=== PATIENT | female | born 1950 | race Caucasian/White ===

== ENCOUNTER → 2017-09-21 07:13 | Outpatient (CLI) | payer MEDICARE, BC, SELFPAY ==
[2017-09-21 10:26] LABS: Add Manual Diff / Slide Review NO; Basophils Percent Auto 0.8 % (0-2); Eosinophils Percent Auto 2.4 % (2-4); Hematocrit 42.7 % (36-46); Hemoglobin 14.6 g/dL (12.0-16.0); Lymphocytes Percent Auto 29.1 % (25-40); Mean Corpuscular HGB Conc 34.1 % (30-36); Mean Corpuscular Hemoglobin 30.1 PG (26-34); Mean Corpuscular Volume 88.1 fL (80-100); Monocytes Percent Auto 6.7 % (3-14); Neutrophils Absolute Auto 3300 /uL (3000-5900); Platelet Count 183 X10^3/uL (150-400); Red Blood Cell Count 4.85 X10^6/uL (4.0-5.2); Red Cell Distribution Width 13.9 % (11.6-14.8); White Blood Cell Count 5.4 X10^3/uL (4.5-11.0)
[2017-09-21 10:35] LABS: Alanine Aminotransferase 28 IU/L (9-52); Albumin 4.4 g/dL (3.5-5.0); Albumin Globulin Ratio 1.6 (1.0-2.8); Alkaline Phosphatase 59 U/L (38-126); Aspartate Aminotransferase 29 IU/L (14-36); BUN Creatinine Ratio 38.3 (6-22); Bilirubin Total 0.8 mg/dL (0.2-1.3); Blood Urea Nitrogen 23 mg/dL (7-17); Calcium 9.4 mg/dL (8.4-10.2); Carbon Dioxide 25 mmol/L (22-32); Chloride 104 mmol/L (98-107); Cholesterol 192 mg/dL (140-199); Estimated Glomerular Filt Rate > 60.0 mL/min (>60); Globulin 2.8 g/dL (1.7-4.1); Glucose 81 mg/dL (80-110); HDL Cholesterol 54 mg/dL (40-60); HEMOLYSIS < 15 (0-50); LDL Cholesterol Calculated 124 mg/dL (<100); Potassium 4.7 mmol/L (3.4-5.1); Sodium 141 mmol/L (137-145); Total Protein 7.2 g/dL (6.3-8.2); Triglycerides 70 mg/dL (35-150)
[2017-09-21 11:04] LABS: Thyroid Stimulating Hormone 2.86 uIU/mL (0.47-4.68)
== END ==
PROVIDERS: PCP Physician Assistant; Visit Provider Physician Assistant
DX: E03.9 Hypothyroidism, unspecified (principal); E78.5 Hyperlipidemia, unspecified; R00.2 Palpitations; I49.9 Cardiac arrhythmia, unspecified; E83.42 Hypomagnesemia
CPT/HCPCS: 36415; 80053; 80061; 83735; 84443; 85025

== ENCOUNTER → 2018-04-03 08:42 | Outpatient (CLI) | payer MEDICARE, BC, SELFPAY ==
--- NOTE | 2018-04-03 | DI.MG.S_ITS ---
BILATERAL DIGITAL SCREENING MAMMOGRAM 3D/2D WITH CAD: 04/03/2018 CLINICAL: Routine screening. Family history of breast cancer. Comparison is made to exams dated: 03/26/2017 mammogram, 09/27/2015 mammogram, and 09/25/2014 mammogram - [facility]. There are scattered fibroglandular elements in both breasts. Current study was also evaluated with a Computer Aided Detection (CAD) system. There is a mole marker on the left breast. No significant masses, calcifications, or other findings are seen in either breast. There has been no significant interval change. IMPRESSION: NEGATIVE There is no mammographic evidence of malignancy. A 1 year screening mammogram is recommended. This exam was interpreted at Station ID: [id number]. NOTE: For mammograms, a report in lay terms will be sent to the patient. Approximately 15% of breast malignancies will not be visualized mammographically. In the management of a palpable breast mass, a negative mammogram must not discourage biopsy of a clinically suspicious lesion. Electronically Signed By: Parmjit marroquin/chicho:04/03/2018 11:30:44 letter sent: Normal Exam ACR BI-RADS Category 1: Negative [id number]
== END ==
PROVIDERS: PCP Physician Assistant; Visit Provider Physician Assistant
DX: Z12.31 Encounter for screening mammogram for malignant neoplasm of breast (principal); Z80.3 Family history of malignant neoplasm of breast
CPT/HCPCS: 77063; 77067

== ENCOUNTER → 2018-12-25 06:51 | Outpatient (CLI) | payer MEDICARE, BC, SELFPAY ==
[2018-12-25 09:15] LABS: Alanine Aminotransferase 30 IU/L (9-52); Albumin 4.2 g/dL (3.5-5.0); Albumin Globulin Ratio 1.5 (1.0-2.8); Alkaline Phosphatase 59 U/L (38-126); Aspartate Aminotransferase 29 IU/L (14-36); Bilirubin Total 0.7 mg/dL (0.2-1.3); Blood Urea Nitrogen 21 mg/dL (7-17); Calcium 9.3 mg/dL (8.4-10.2); Carbon Dioxide 29 mmol/L (22-32); Chloride 105 mmol/L (98-107); Cholesterol 203 mg/dL (140-199); Estimated Glomerular Filt Rate > 60.0 mL/min (>60); Globulin 2.8 g/dL (1.7-4.1); Glucose 96 mg/dL (80-110); HDL Cholesterol 47 mg/dL (40-60); HEMOLYSIS < 15 (0-50); LDL Cholesterol Calculated 141 mg/dL (<100); Potassium 4.8 mmol/L (3.4-5.1); Sodium 141 mmol/L (137-145); Triglycerides 74 mg/dL (35-150)
[2018-12-25 09:43] LABS: Thyroid Stimulating Hormone 0.28 uIU/mL (0.47-4.68)
== END ==
PROVIDERS: PCP Physician Assistant; Visit Provider Physician Assistant
DX: E03.9 Hypothyroidism, unspecified (principal); E78.5 Hyperlipidemia, unspecified
CPT/HCPCS: 36415; 80053; 80061; 84443

== ENCOUNTER → 2019-02-28 08:16 | Outpatient (CLI) | payer MEDICARE, BC, SELFPAY ==
[2019-02-28 09:56] LABS: TSH w/ Reflex to FT4 0.26 uIU/mL (0.47-4.68)
== END ==
PROVIDERS: PCP Physician Assistant; Visit Provider Physician Assistant
DX: E03.9 Hypothyroidism, unspecified (principal)
CPT/HCPCS: 36415; 84439; 84443

== ENCOUNTER → 2019-03-28 12:15 | Outpatient (CLI) | payer MEDICARE, BC, SELFPAY ==
--- NOTE | 2019-03-28 | DI.RAD.S_ITS ---
PROCEDURE: XR HIP W PEL IF DONE LT 2V INDICATIONS: hip pain TECHNIQUE: 2 views of the hip were acquired. COMPARISON: None. FINDINGS: Bones: No fractures or dislocations. No suspicious bony lesions. The visualized pelvic ring appears intact. Soft tissues: No suspicious soft tissue calcifications or masses. IMPRESSION: Unremarkable examination as above If the patient's pain or other symptoms persist, consider further evaluation with MRI Dictated by: Lit Rodriguez M.D. on 03/28/2019 at 13:46 Approved by: Lit Rodriguez M.D. on 03/28/2019 at 13:48
--- NOTE | 2019-03-28 | DI.RAD.S_ITS ---
PROCEDURE: XR LUMBAR SPINE 2-3V INDICATIONS: pain in hip joint TECHNIQUE: 3 views of the lumbar spine were acquired. COMPARISON: [facility], , L-SPINE 2-3 VIEWS, 02/17/2013, 16:22. FINDINGS: Bones: No fracture or focal osseous destruction. Grade 1 anterolisthesis of L4 on L5. Multilevel degenerative endplate sclerosis and spurring. Diffuse facet arthropathy. Moderate narrowing of the L4-L5 disc space. Mild narrowing of the L2-L3 and L1-L2 disc spaces. Mild levocurvature. Bilateral sacroiliac degenerative sclerosis. Soft tissues: Overlying bowel gas pattern is normal. No suspicious soft tissue calcifications. IMPRESSION: Multilevel lumbar spondylosis and grade 1 anterolisthesis of L4 on L5. This is grossly unchanged, possibly minimal progression at L4-L5 since 02/17/13 Mild levocurvature Dictated by: Lit Rodriguez M.D. on 03/28/2019 at 13:42 Approved by: Lit Rodriguez M.D. on 03/28/2019 at 13:45
== END ==
PROVIDERS: PCP Physician Assistant; Visit Provider Physician Assistant
DX: M25.552 Pain in left hip (principal); M79.605 Pain in left leg; M47.816 Spondylosis without myelopathy or radiculopathy, lumbar region; M43.16 Spondylolisthesis, lumbar region
CPT/HCPCS: 72100; 73502

== ENCOUNTER → 2019-04-11 07:15 | Outpatient (CLI) | payer MEDICARE, BC, SELFPAY ==
--- NOTE | 2019-04-11 | DI.MG.S_ITS ---
BILATERAL DIGITAL SCREENING MAMMOGRAM 3D/2D WITH CAD: 04/11/2019 CLINICAL: Routine screening. Family history of breast cancer. Comparison is made to exams dated: 04/03/2018 mammogram, 03/26/2017 mammogram, and 09/27/2015 mammogram - [facility]. There are scattered fibroglandular elements in both breasts. Current study was also evaluated with a Computer Aided Detection (CAD) system. There is a mole marker on the left breast. No significant masses, calcifications, or other findings are seen in either breast. There has been no significant interval change. IMPRESSION: NEGATIVE There is no mammographic evidence of malignancy. A 1 year screening mammogram is recommended. This exam was interpreted at Station ID: [id number]. NOTE: For mammograms, a report in lay terms will be sent to the patient. Approximately 15% of breast malignancies will not be visualized mammographically. In the management of a palpable breast mass, a negative mammogram must not discourage biopsy of a clinically suspicious lesion. Electronically Signed By: Esthela beaver/chicho:04/11/2019 12:18:47 letter sent: Normal Exam ACR BI-RADS Category 1: Negative [id number]
== END ==
PROVIDERS: PCP Physician Assistant; Visit Provider Physician Assistant
DX: Z12.31 Encounter for screening mammogram for malignant neoplasm of breast (principal); Z80.3 Family history of malignant neoplasm of breast
CPT/HCPCS: 77063; 77067

== ENCOUNTER → 2019-04-15 15:15 | Outpatient (CLI) | payer MEDICARE, BC, SELFPAY ==
[2019-04-15 17:01] LABS: TSH w/ Reflex to FT4 0.26 uIU/mL (0.47-4.68)
[2019-04-15 17:35] LABS: Free T4, Direct Thyroxine 1.66 ng/dL (0.78-2.19)
== END ==
PROVIDERS: PCP Physician Assistant; Visit Provider Physician Assistant
DX: E03.9 Hypothyroidism, unspecified (principal)
CPT/HCPCS: 36415; 84439; 84443

== ENCOUNTER 2019-04-17 08:15 | Outpatient (RCR) | payer MEDICARE, BC, SELFPAY ==
--- NOTE | 2019-03-31 16:55 | PT.OIE ---
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 Primary Care Provider Specialty: Internal Medicine Address: [address] [place] [address], [facility] Email: [email or web address] Physical Therapy Initial Evaluation PT-OP-A Visit Information Start: 03/31/19 12:37 Freq: Status: Active Protocol: Document 03/31/19 13:34 LRN (Rec: 03/31/19 15:50 LRN [id number]) Out-Patient Physical Therapy Visit Information Visit Information Visit Type Initial Evaluation Visit Start Time 13:34 Visit Stop Time 14:29 Total Visit Minutes 55 Visit Number 1 Number of NARROW FABRICS WEAVER Visits 0 Evaluation Information Evaluation Date 03/31/19 Precautions Precautions Arthritis Claire's Disease Hx of Fracture of L Big Toe. PT-OP-B Current Condition Start: 03/31/19 12:37 Freq: Status: Active Protocol: Document 03/31/19 13:34 LRN (Rec: 03/31/19 15:50 LRN [id number]) Current Condition History of Current Condition Onset Date Problematic 1 month, aching for 2 months Current Complaints L hip pain radiating into the lateral leg. 2 yrs ago started in the R hip History of Current Condition Sudden onset of pain with hiking causing change in gait. L hip pain is problematic because it hurts after she gets up, on the inital step, while in bed at night, and in the middle of a walk. Has numbness in the R leg due to an old back thing (4-5 yrs ago couldn't get up because L5 -S1 slip). Trying to keep the pain at a level of 5/10 with medications. Has had gastritis from taking too much Advil. Prior Treatments and Tests X-rays 3 days ago, found unremarkable. Future Testing and Treatments Planned None Treatment Goals Patient/Caregiver Goals Pt goal is to be stronger, gain flexibility, learn how to make hips stronger. Maximize pain relief. Prior Functional Status Baseline Function- ADL's Independent Baseline Function- Mobility Independent Baseline Function- Gait Walk up to 12 miles, once a week with achy lower back after walks Current Functional Impairments (Reported) Functional Limitations- ADL's Currently limited in how far she can walk and what she can do. Walking limited maximally to 2.5-3 miles around [facility] , requiring her to slow down 3 -4 times and to work through some of the discomfort. Functional Limitations- Recreation/ No pain with water aerobics or Hobbies afterwards excessively, pain 4-10/16. Personal Factors Other Personal Factors That May Effect Leaving 04/18-mid 06/26 (going Therapy/Recovery to [facility] and [facility]). PT-OP-C Subjective Start: 03/31/19 12:37 Freq: Status: Active Protocol: Document 03/31/19 13:34 LRN (Rec: 03/31/19 15:50 LRN [id number]) OP-PT Pain Assessment Pain Assessment Grid Paper Pain Assessment Grid Completed Yes Location Low back Pain Location Details Low back at sacral level all the time and after sharp pain onset. Intensity 7 Description Aching Description- Other Ache is constant. Pain descending stairs Frequency Constant Pain Aggravating Factors Changing Position,Walking, Stair Climbing,Prolonged Bedrest Patient Stated Pain Goal Meds as needed. Wants to take Meloxicam for 2 weeks+ maintenance small dose Hip Pain Location Details Occasional sharp L lateral hip pain, pain R with palpation Intensity 7 Scale Used Numeric (1 - 10) Description Aching Description- Other Pain descending stairs. Frequency Occasional Pain Aggravating Factors Position,Changing Position, Standing,Stair Climbing, Prolonged Bedrest Pain Alleviating Factors Medication Patient Stated Pain Goal Meds as needed. Wants to take Meloxicam for 2 weeks+ maintenance small dose PT-OP-G Mobility & Gait Start: 03/31/19 12:37 Freq: Status: Active Protocol: Document 03/31/19 13:34 LRN (Rec: 03/31/19 15:50 LRN [id number]) OP Gait Assessment Gait Gait Assistance Required: Independent Able to Maintain Weight Bearing Status Yes During Gait Assistive Devices Assistive Device None PT-OP-H Neuro Start: 03/31/19 12:37 Freq: Status: Active Protocol: Document 03/31/19 13:34 LRN (Rec: 03/31/19 15:50 LRN [id number]) Sensation Evaluation Comments Summary Comments Pt starts with normal sensation, but after DTR testing pt complained of numbness tingling in the lateral R LE. Deep Tendon Reflex & Clonus Assessment Deep Tendon Reflex Bilateral Achilles Deep Tendon Reflex 1+ Diminished Bilateral Patellar Deep Tendon Reflex 3+ Normal But Brisk PT-OP-J Posture/Palpation/Skin Start: 03/31/19 12:37 Freq: Status: Active Protocol: Document 03/31/19 13:34 LRN (Rec: 03/31/19 15:50 LRN [id number]) Posture Evaluation Position Standing Evaluation View All positions Comments Posture Comments Pt demonstrates a visible Dowagers Hump and increased Kyphosis and Lordosis. Standing: Deep L PSIS. Prone: ALA is posterior on R, normalizes with MICHELL. RUSSEL is posterior on L, normalizes with MICHELL. Palpation Assessment Location Hip Palpation Location Lateral hip at Grtr trochanter , TFL, IT-Band, Piriformis, Sacrum Palpation Findings Tenderness Palpation Details L lateral hip tendereness at Grtr Trochanter, TFL, IT-Band, Piriformis, Sacral border. R lateral hip tenderness at Grtr Trochanter, TFL, IT-Band, Inferior Sacral Border, Upper Gluteal Muscle. Lumbar TrP & facets: L1, L2, L3 is tender. Lumbar Spinous Process: L4-S1 is tender. PT-OP-K Range of Motion Start: 03/31/19 12:37 Freq: Status: Active Protocol: Document 03/31/19 13:34 LRN (Rec: 03/31/19 15:50 LRN [id number]) Lumbar Spine Range of Motion Lumbar Spine Active Degrees Testing Position Standing Flexion 115 Extension 20 Rotation Left 45 Rotation Right 45 Lateral Flexion Left 18 Lateral Flexion Right 15 Hip Goniometric Range of Motion Hip Right Passive Testing Position Supine Straight Leg Raise 95 Extension 5 Abduction 30 Internal Rotation 25 External Rotation 50 Left Passive Testing Position Supine, Prone for Ext Straight Leg Raise 90 Extension 0 Abduction 50 Internal Rotation 30 External Rotation 40 PT-OP-L Special Tests Start: 03/31/19 12:37 Freq: Status: Active Protocol: Document 03/31/19 13:34 LRN (Rec: 03/31/19 15:50 LRN [id number]) Special Tests Hip Special Tests [facility] Resisted Hip Flexion Test Results - bilaterally Straight Leg Raise Test Results - bilaterally MAGALY Test Results Right: Negative. Left: Tight hip rotators. PT-OP-M Strength Start: 03/31/19 12:37 Freq: Status: Active Protocol: Document 03/31/19 13:34 LRN (Rec: 03/31/19 15:50 LRN [id number]) Trunk Strength Trunk Manual Muscle Testing Testing Position Supine Core Stabilization Decreased core stability with manual muscle testing of hips. Pt needed v.cuing to maintain sidelie position due to weak TA. Hip Strength Hip Manual Muscle Testing Right Reason Not Measured WFL Comments Generally 5/5. Left Flexion (L2) 3 Fair Adduction 1 Trace Reason Not Measured WFL Comments Generally 5/5 except those listed above. Knee Strength Knee Manual Muscle Testing Right Reason Not Measured WFL Left Reason Not Measured WFL PT-OP-Q Treatments Start: 03/31/19 12:37 Freq: Status: Active Protocol: Document 03/31/19 13:34 LRN (Rec: 03/31/19 15:50 LRN [id number]) Manual Therapy Treatment Joint Mobilizations Lumbar Joint L2-L5 Direction Correcting R rotation Grade II Body Position Prone Sacrum Joint SIJ Direction PA of right ALA & left RUSSEL Grade II Body Position Prone Self-Care/Home Management Treatment Education Patient Education Pain Management Other Education Discussed use of assistive device to off weight the LLE during gait and discussed use of ice to decrease hip pain. Activities Self-Care/Home Management Activities Rest LLE with use of cane, and use cryotherapy for pain management. PT-OP-T Assessment and Plan Start: 03/31/19 12:37 Freq: Status: Active Protocol: Document 03/31/19 13:34 LRN (Rec: 03/31/19 15:50 LRN [id number]) Physical Therapy Assessment Rehab Potential Rehabilitation Potential Good Evaluation Complexity Number of Personal Factors/Comorbidities 1-2 Number of Body Systems Impaired 4 or More Clinical Presentation at Evaluation Evolving Impairments Impairments Activity Tolerance,Gait,Pain, ROM,Soft Tissue Mobility, Strength Goals Six Impairment Poor awareness of proper body mechanics and hip hinging techniques Short Term Goal (STG) Pt will be educated in proper hip hinging techniques with transfers and proper body mechanics for travel. STG Duration 04/16/18 Five Impairment Constant low back pain. 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 LTG Duration 07/29/19 Four Impairment Bilateral hip pain Windows [employer] Specialist Goal (LTG) Maximize pain relief of bilateral hips with no sharp pain onset upon sit to stand and hiking. LTG Duration 07/29/19 Three Impairment Decreased hip mobility (IR 25 degs R, 30 degs L , ER 40 degs L, 50 degs R) Short Term Goal (STG) Pt will be independent in a self care hip flexibility ROM program STG Duration 04/16/18 Two Impairment Decreased core & L hip strength (flex 3/5, AD 1+/5) Short Term Goal (STG) Pt will be on and independent self care program to strengthen her L hip. 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 LTG Duration 07/29/19 One Impairment Lacks appropriate HEP Fdc Goal (LTG) Pt will be independent with a self care HEP to minimize hip and back pain and maximize pain relief. LTG Duration 07/29/19 Assessment Summary Assessment Pt presents with a soft tissue dysfunction of the bilateral hips and mechanical dysfunction of the spine and sacrum. She has tenderness of the soft tissue at the lateral hips, bilaterally with possible bursitis of the L hip and possible left Piriformis syndrome. Her L innominate appears inflared and posteriorly rotated and the sacrum is in torsion on superior R and posterior L axis; therefore she has tightness/pain of the L hip muscles, most notably the Piriformis and TFL. The pt also appears to have soft tissue and involvement of the lumbar spine with the spine in R rotation and gapping of spinous process at L4-L5. The pt's rehabilitation program may need to be extended due to her almost 2 month vacation break during her PT rehabilitation program and due to changes in her gait from a L big toe dysfunction from a prior injury. The pt will benefit from skilled physical therapy to decreased bilateral hip and low back pain, improve pelvic and core positioning and stability, gait training, and a self care program that she can do during her almost 2 month vacation, then return for completion of her rehabilitation program as needed. Physical Therapy Plan Frequency and Duration Frequency of Treatment 2x/Week Plan of Care Start Date 03/31/19 Plan of Care End Date 07/29/19 Therapeutic Interventions Therapeutic Interventions Home Exercise Program,Joint Mobilizations,Manual Therapy, Neuromuscular Re-education, Self-Care/Home Management,Soft Tissue Mobilization,Taping, Therapeutic Exercises Modalities Cold Pack/Ice Massage,Electric Stimulation,Hot Packs, Iontophoresis,Ultrasound Other Therapeutic Interventions Iontophoresis: 4 mg/mL Dexamethosone with Sodium Phosphate. Next Visit Focus/Plan Next Note Type Treatment Note Next Visit Plan Gait training with use of cane ; assess special tests: Log Roll, Piriformis, Monty & knee mobility; June Test, then MET to correct an L inflare w/possible posterior rotation, and sacral R rotation and flexion, education in self care ex's that she can do on her vacation. Once position corrected, stabilize pelvis & core. Education needed for posturing for travel and sitting, and body mechanics training. Hip mobility HEP to improve IR, L ER, R AB, cruz AD, and strength of L hip flexor and adductors.
--- NOTE | 2019-03-31 16:58 | PT.OIE ---
Current Diagnoses Pain in left hip (03/31/19) Stiffness of unspecified hip, not elsewhere classified (03/31/19) Muscle weakness (generalized) (03/31/19) Pain in left leg (03/31/19) Visit Care Team Role Provider Type Trupti Hdz PA-C Attending Provider Advanced Electrical Subcontractor Primary Care Provider Specialty: Internal Medicine Address: [address] [place] [address], [facility] Email: [email or web address] Physical Therapy Initial Evaluation PT-OP-A Visit Information Start: 03/31/19 12:37 Freq: Status: Active Protocol: Document 03/31/19 13:34 LRN (Rec: 03/31/19 15:50 LRN [id number]) Out-Patient Physical Therapy Visit Information Visit Information Visit Type Initial Evaluation Visit Start Time 13:34 Visit Stop Time 14:29 Total Visit Minutes 55 Visit Number 1 Number of TELEPHONE SERVICE ADVISER Visits 0 Evaluation Information Evaluation Date 03/31/19 Precautions Precautions Arthritis Claire's Disease Hx of Fracture of L Big Toe. PT-OP-B Current Condition Start: 03/31/19 12:37 Freq: Status: Active Protocol: Document 03/31/19 13:34 LRN (Rec: 03/31/19 15:50 LRN [id number]) Current Condition History of Current Condition Onset Date Problematic 1 month, aching for 2 months Current Complaints L hip pain radiating into the lateral leg. 2 yrs ago started in the R hip History of Current Condition Sudden onset of pain with hiking causing change in gait. L hip pain is problematic because it hurts after she gets up, on the inital step, while in bed at night, and in the middle of a walk. Has numbness in the R leg due to an old back thing (4-5 yrs ago couldn't get up because L5 -S1 slip). Trying to keep the pain at a level of 5/10 with medications. Has had gastritis from taking too much Advil. Prior Treatments and Tests X-rays 3 days ago, found unremarkable. Future Testing and Treatments Planned None Treatment Goals Patient/Caregiver Goals Pt goal is to be stronger, gain flexibility, learn how to make hips stronger. Maximize pain relief. Prior Functional Status Baseline Function- ADL's Independent Baseline Function- Mobility Independent Baseline Function- Gait Walk up to 12 miles, once a week with achy lower back after walks Current Functional Impairments (Reported) Functional Limitations- ADL's Currently limited in how far she can walk and what she can do. Walking limited maximally to 2.5-3 miles around [facility] , requiring her to slow down 3 -4 times and to work through some of the discomfort. Functional Limitations- Recreation/ No pain with water aerobics or Hobbies afterwards excessively, pain 4-10/16. Personal Factors Other Personal Factors That May Effect Leaving 04/18-mid 06/26 (going Therapy/Recovery to [facility]). PT-OP-C Subjective Start: 03/31/19 12:37 Freq: Status: Active Protocol: Document 03/31/19 13:34 LRN (Rec: 03/31/19 15:50 LRN [id number]) Patient Questionnaires Lower Extremity Functional Scale LEFS Score 61 LEFS Impairment 20 to 39% Impaired (Score 48- 62) OP-PT Pain Assessment Pain Assessment Grid Paper Pain Assessment Grid Completed Yes Location Low back Pain Location Details Low back at sacral level all the time and after sharp pain onset. Intensity 5 Description Aching Description- Other Ache is constant. Pain descending stairs Frequency Constant Pain Aggravating Factors Changing Position,Walking, Stair Climbing,Prolonged Bedrest Patient Stated Pain Goal Meds as needed. Wants to take Meloxicam for 2 weeks+ maintenance small dose Hip Pain Location Details Occasional sharp L lateral hip pain, pain R with palpation Intensity 7 Scale Used Numeric (1 - 10) Description Aching Description- Other Pain descending stairs. Frequency Occasional Pain Aggravating Factors Position,Changing Position, Standing,Stair Climbing, Prolonged Bedrest Pain Alleviating Factors Medication Patient Stated Pain Goal Meds as needed. Wants to take Meloxicam for 2 weeks+ maintenance small dose PT-OP-G Mobility & Gait Start: 03/31/19 12:37 Freq: Status: Active Protocol: Document 03/31/19 13:34 LRN (Rec: 03/31/19 15:50 LRN [id number]) OP Gait Assessment Gait Gait Assistance Required: Independent Able to Maintain Weight Bearing Status Yes During Gait Assistive Devices Assistive Device None PT-OP-H Neuro Start: 03/31/19 12:37 Freq: Status: Active Protocol: Document 03/31/19 13:34 LRN (Rec: 03/31/19 15:50 LRN [id number]) Sensation Evaluation Comments Summary Comments Pt starts with normal sensation, but after DTR testing pt complained of numbness tingling in the lateral R LE. Deep Tendon Reflex & Clonus Assessment Deep Tendon Reflex Bilateral Achilles Deep Tendon Reflex 1+ Diminished Bilateral Patellar Deep Tendon Reflex 3+ Normal But Brisk PT-OP-J Posture/Palpation/Skin Start: 03/31/19 12:37 Freq: Status: Active Protocol: Document 03/31/19 13:34 LRN (Rec: 03/31/19 15:50 LRN [id number]) Posture Evaluation Position Standing Evaluation View All positions Comments Posture Comments Pt demonstrates a visible Dowagers Hump and increased Kyphosis and Lordosis. Standing: Deep L PSIS. Prone: ALA is posterior on R, normalizes with MICHELL. RUSSEL is posterior on L, normalizes with MICHELL. Palpation Assessment Location Hip Palpation Location Lateral hip at Grtr trochanter , TFL, IT-Band, Piriformis, Sacrum Palpation Findings Tenderness Palpation Details L lateral hip tendereness at Grtr Trochanter, TFL, IT-Band, Piriformis, Sacral border. R lateral hip tenderness at Grtr Trochanter, TFL, IT-Band, Inferior Sacral Border, Upper Gluteal Muscle. Lumbar TrP & facets: L1, L2, L3 is tender. Lumbar Spinous Process: L4-S1 is tender. PT-OP-K Range of Motion Start: 03/31/19 12:37 Freq: Status: Active Protocol: Document 03/31/19 13:34 LRN (Rec: 03/31/19 15:50 LRN [id number]) Lumbar Spine Range of Motion Lumbar Spine Active Degrees Testing Position Standing Flexion 115 Extension 20 Rotation Left 45 Rotation Right 45 Lateral Flexion Left 18 Lateral Flexion Right 15 Hip Goniometric Range of Motion Hip Right Passive Testing Position Supine Straight Leg Raise 95 Extension 5 Abduction 30 Internal Rotation 25 External Rotation 50 Left Passive Testing Position Supine, Prone for Ext Straight Leg Raise 90 Extension 0 Abduction 50 Internal Rotation 30 External Rotation 40 PT-OP-L Special Tests Start: 03/31/19 12:37 Freq: Status: Active Protocol: Document 03/31/19 13:34 LRN (Rec: 03/31/19 15:50 LRN [id number]) Special Tests Hip Special Tests [facility] Resisted Hip Flexion Test Results - bilaterally Straight Leg Raise Test Results - bilaterally MAGALY Test Results Right: Negative. Left: Tight hip rotators. PT-OP-M Strength Start: 03/31/19 12:37 Freq: Status: Active Protocol: Document 03/31/19 13:34 LRN (Rec: 03/31/19 15:50 LRN [id number]) Trunk Strength Trunk Manual Muscle Testing Testing Position Supine Core Stabilization Decreased core stability with manual muscle testing of hips. Pt needed v.cuing to maintain sidelie position due to weak TA. Hip Strength Hip Manual Muscle Testing Right Reason Not Measured WFL Comments Generally 5/5. Left Flexion (L2) 3 Fair Adduction 1 Trace Reason Not Measured WFL Comments Generally 5/5 except those listed above. Knee Strength Knee Manual Muscle Testing Right Reason Not Measured WFL Left Reason Not Measured WFL PT-OP-Q Treatments Start: 03/31/19 12:37 Freq: Status: Active Protocol: Document 03/31/19 13:34 LRN (Rec: 03/31/19 15:50 LRN [id number]) Manual Therapy Treatment Joint Mobilizations Lumbar Joint L2-L5 Direction Correcting R rotation Grade II Body Position Prone Sacrum Joint SIJ Direction PA of right ALA & left RUSSEL Grade II Body Position Prone Self-Care/Home Management Treatment Education Patient Education Pain Management Other Education Discussed use of assistive device to off weight the LLE during gait and discussed use of ice to decrease hip pain. Activities Self-Care/Home Management Activities Rest LLE with use of cane, and use cryotherapy for pain management. PT-OP-T Assessment and Plan Start: 03/31/19 12:37 Freq: Status: Active Protocol: Document 03/31/19 13:34 LRN (Rec: 03/31/19 15:50 LRN [id number]) Physical Therapy Assessment Rehab Potential Rehabilitation Potential Good Evaluation Complexity Number of Personal Factors/Comorbidities 1-2 Number of Body Systems Impaired 4 or More Clinical Presentation at Evaluation Evolving Impairments Impairments Activity Tolerance,Gait,Pain, ROM,Soft Tissue Mobility, Strength Goals Six Impairment Poor awareness of proper body mechanics and hip hinging techniques Short Term Goal (STG) Pt will be educated in proper hip hinging techniques with transfers and proper body mechanics for travel. STG Duration 04/16/18 Five Impairment Constant low back pain. Consulting Analyst Goal (LTG) Decrease pain to intermittent in nature with pain no greater than 3-4/10 after hiking and no pain while at rest. LTG Duration 07/29/19 Four Impairment Bilateral hip pain Consulting Analyst Goal (LTG) Maximize pain relief of bilateral hips with no sharp pain onset upon sit to stand and hiking. LTG Duration 07/29/19 Three Impairment Decreased hip mobility (IR 25 degs R, 30 degs L , ER 40 degs L, 50 degs R) Short Term Goal (STG) Pt will be independent in a self care hip flexibility ROM program STG Duration 04/16/18 Two Impairment Decreased core & L hip strength (flex 3/5, AD 1+/5) Short Term Goal (STG) Pt will be on and independent self care program to strengthen her L hip. STG Duration 04/16/18 Consulting Analyst Goal (LTG) Improve L hip strength to no less than 4/5 with flexion and 3/5 with hip AD. LTG Duration 07/29/19 One Impairment Lacks appropriate HEP Consulting Analyst Goal (LTG) Pt will be independent with a self care HEP to minimize hip and back pain and maximize pain relief. LTG Duration 07/29/19 Assessment Summary Assessment Pt presents with a soft tissue dysfunction of the bilateral hips and mechanical dysfunction of the spine and sacrum. She has tenderness of the soft tissue at the lateral hips, bilaterally with possible bursitis of the L hip and possible left Piriformis syndrome. Her L innominate appears inflared and posteriorly rotated and the sacrum is in torsion on superior R and posterior L axis; therefore she has tightness/pain of the L hip muscles, most notably the Piriformis and TFL. The pt also appears to have soft tissue and involvement of the lumbar spine with the spine in R rotation and gapping of spinous process at L4-L5. The pt's rehabilitation program may need to be extended due to her almost 2 month vacation break during her PT rehabilitation program and due to changes in her gait from a L big toe dysfunction from a prior injury. The pt will benefit from skilled physical therapy to decreased bilateral hip and low back pain, improve pelvic and core positioning and stability, gait training, and a self care program that she can do during her almost 2 month vacation, then return for completion of her rehabilitation program as needed. Physical Therapy Plan Frequency and Duration Frequency of Treatment 2x/Week Plan of Care Start Date 03/31/19 Plan of Care End Date 07/29/19 Therapeutic Interventions Therapeutic Interventions Home Exercise Program,Joint Mobilizations,Manual Therapy, Neuromuscular Re-education, Self-Care/Home Management,Soft Tissue Mobilization,Taping, Therapeutic Exercises Modalities Cold Pack/Ice Massage,Electric Stimulation,Hot Packs, Iontophoresis,Ultrasound Other Therapeutic Interventions Iontophoresis: 4 mg/mL Dexamethosone with Sodium Phosphate. Next Visit Focus/Plan Next Note Type Treatment Note Next Visit Plan Gait training with use of cane ; assess special tests: Log Roll, Piriformis, Monty & knee mobility; June Test, then MET to correct an L inflare w/possible posterior rotation, and sacral R rotation and flexion, education in self care ex's that she can do on her vacation. Once position corrected, stabilize pelvis & core. Education needed for posturing for travel and sitting, and body mechanics training. Hip mobility HEP to improve IR, L ER, R AB, cruz AD, and strength of L hip flexor and adductors.
--- NOTE | 2019-04-03 13:54 | PT.OTN ---
Current Diagnoses Pain in left hip (04/03/19) Stiffness of unspecified hip, not elsewhere classified (04/03/19) Muscle weakness (generalized) (04/03/19) Pain in left leg (04/03/19) Physical Therapy Treatment Note PT-OP-A Visit Information Start: 03/31/19 12:37 Freq: Status: Active Protocol: Document 04/03/19 11:19 LRN (Rec: 04/03/19 12:16 LRN [id number]) Out-Patient Physical Therapy Visit Information Visit Information Visit Type Treatment Note Visit Start Time 11:19 Visit Stop Time 12:04 Total Visit Minutes 45 Visit Number 2 Number of MAINTENANCE TECHNICIAN 3RD SHIFT Visits 0 Evaluation Information Evaluation Date 03/31/19 Precautions Precautions Arthritis Claire's Disease Hx of Fracture of L Big Toe. PT-OP-B Current Condition Start: 03/31/19 12:37 Freq: Status: Active Protocol: Document 03/31/19 13:34 LRN (Rec: 03/31/19 15:50 LRN [id number]) Current Condition History of Current Condition Onset Date Problematic 1 month, aching for 2 months Current Complaints L hip pain radiating into the lateral leg. 2 yrs ago started in the R hip History of Current Condition Sudden onset of pain with hiking causing change in gait. L hip pain is problematic because it hurts after she gets up, on the inital step, while in bed at night, and in the middle of a walk. Has numbness in the R leg due to an old back thing (4-5 yrs ago couldn't get up because L5 -S1 slip). Trying to keep the pain at a level of 5/10 with medications. Has had gastritis from taking too much Advil. Prior Treatments and Tests X-rays 3 days ago, found unremarkable. Future Testing and Treatments Planned None Treatment Goals Patient/Caregiver Goals Pt goal is to be stronger, gain flexibility, learn how to make hips stronger. Maximize pain relief. Prior Functional Status Baseline Function- ADL's Independent Baseline Function- Mobility Independent Baseline Function- Gait Walk up to 12 miles, once a week with achy lower back after walks Current Functional Impairments (Reported) Functional Limitations- ADL's Currently limited in how far she can walk and what she can do. Walking limited maximally to 2.5-3 miles around [facility] , requiring her to slow down 3 -4 times and to work through some of the discomfort. Functional Limitations- Recreation/ No pain with water aerobics or Hobbies afterwards excessively, pain 4-7. Personal Factors Other Personal Factors That May Effect Leaving 04/18-mid 06/26 (going Therapy/Recovery to [facility]). PT-OP-C Subjective Start: 03/31/19 12:37 Freq: Status: Active Protocol: Document 04/03/19 11:19 LRN (Rec: 04/03/19 12:16 LRN [id number]) OP-PT Subjective Patient Comments Patient Comments States she did what she was told and did icing. Back pain is 3/10. Sharp pain with first step, and L hip hurts coming to stand a little bit. PT-OP-G Mobility & Gait Start: 03/31/19 12:37 Freq: Status: Active Protocol: Document 03/31/19 13:34 LRN (Rec: 03/31/19 15:50 LRN [id number]) OP Gait Assessment Gait Gait Assistance Required: Independent Able to Maintain Weight Bearing Status Yes During Gait Assistive Devices Assistive Device None PT-OP-H Neuro Start: 03/31/19 12:37 Freq: Status: Active Protocol: Document 03/31/19 13:34 LRN (Rec: 03/31/19 15:50 LRN [id number]) Sensation Evaluation Comments Summary Comments Pt starts with normal sensation, but after DTR testing pt complained of numbness tingling in the lateral R LE. Deep Tendon Reflex & Clonus Assessment Deep Tendon Reflex Bilateral Achilles Deep Tendon Reflex 1+ Diminished Bilateral Patellar Deep Tendon Reflex 3+ Normal But Brisk PT-OP-J Posture/Palpation/Skin Start: 03/31/19 12:37 Freq: Status: Active Protocol: Document 03/31/19 13:34 LRN (Rec: 03/31/19 15:50 LRN [id number]) Posture Evaluation Position Standing Evaluation View All positions Comments Posture Comments Pt demonstrates a visible Dowagers Hump and increased Kyphosis and Lordosis. Standing: Deep L PSIS. Prone: ALA is posterior on R, normalizes with MICHELL. RUSSEL is posterior on L, normalizes with MICHELL. Palpation Assessment Location Hip Palpation Location Lateral hip at Grtr trochanter , TFL, IT-Band, Piriformis, Sacrum Palpation Findings Tenderness Palpation Details L lateral hip tendereness at Grtr Trochanter, TFL, IT-Band, Piriformis, Sacral border. R lateral hip tenderness at Grtr Trochanter, TFL, IT-Band, Inferior Sacral Border, Upper Gluteal Muscle. Lumbar TrP & facets: L1, L2, L3 is tender. Lumbar Spinous Process: L4-S1 is tender. PT-OP-K Range of Motion Start: 03/31/19 12:37 Freq: Status: Active Protocol: Document 03/31/19 13:34 LRN (Rec: 03/31/19 15:50 LRN [id number]) Lumbar Spine Range of Motion Lumbar Spine Active Degrees Testing Position Standing Flexion 115 Extension 20 Rotation Left 45 Rotation Right 45 Lateral Flexion Left 18 Lateral Flexion Right 15 Hip Goniometric Range of Motion Hip Right Passive Testing Position Supine Straight Leg Raise 95 Extension 5 Abduction 30 Internal Rotation 25 External Rotation 50 Left Passive Testing Position Supine, Prone for Ext Straight Leg Raise 90 Extension 0 Abduction 50 Internal Rotation 30 External Rotation 40 PT-OP-L Special Tests Start: 03/31/19 12:37 Freq: Status: Active Protocol: Document 03/31/19 13:34 LRN (Rec: 03/31/19 15:50 LRN [id number]) Special Tests Hip Special Tests [facility] Resisted Hip Flexion Test Results - bilaterally Straight Leg Raise Test Results - bilaterally MAGALY Test Results Right: Negative. Left: Tight hip rotators. PT-OP-M Strength Start: 03/31/19 12:37 Freq: Status: Active Protocol: Document 03/31/19 13:34 LRN (Rec: 03/31/19 15:50 LRN [id number]) Trunk Strength Trunk Manual Muscle Testing Testing Position Supine Core Stabilization Decreased core stability with manual muscle testing of hips. Pt needed v.cuing to maintain sidelie position due to weak TA. Hip Strength Hip Manual Muscle Testing Right Reason Not Measured WFL Comments Generally 5/5. Left Flexion (L2) 3 Fair Adduction 1 Trace Reason Not Measured WFL Comments Generally 5/5 except those listed above. Knee Strength Knee Manual Muscle Testing Right Reason Not Measured WFL Left Reason Not Measured WFL PT-OP-Q Treatments Start: 03/31/19 12:37 Freq: Status: Active Protocol: Document 04/03/19 11:19 LRN (Rec: 04/03/19 12:16 LRN [id number]) Therapeutic Exercises Supine Exercises LE roll in/out w/PF & TA tightening Supine Exercise Name LE roll in/out w/PF & TA tightening Reps/Minutes 3' Comments 1x PF ><, 1x w/o PF >< TA Supine Exercise Name TA training Fig 4 stretch Supine Exercise Name Fig 4 stretch Side bilateral Reps/Minutes 4' Iliopsoas stretch Supine Exercise Name One leg off end of plinth Side bilateral Reps/Minutes 4' Comments R hip stretch minimal stretch felt Lateral hip stretch Supine Exercise Name Lateral hip stretch Side bilateral Comments Extra time taken for training Piriformis Supine Exercise Name Piriformis stretch Side bilateral Comments Extra time taken for training & finding appropriate stretch Self-Care/Home Management Treatment Education Patient Education Home Exercise Program,Posture Other Education Educated and practiced equal balanced standing. Discussed pt's HEP and appropriateness of her movements. Recommended pt hold lateral kickout ex's. Activities Self-Care/Home Management Activities Issued & reviewed HEP: Hip stretches (Fig 4, Piriformis in 2 forms, Lateral hip, Iliopsoas), LE roll in/outs & Deep Breathing. PT-OP-R Modalities Start: 03/31/19 12:37 Freq: Status: Active Protocol: Document 04/03/19 11:19 LRN (Rec: 04/03/19 12:17 LRN [id number]) Hot Pack/Cold Pack Treatment Hot Pack Location Hips Patient Position Hooklying Treatment Duration (minutes) 10 Comments During hip stretching PT-OP-T Assessment and Plan Start: 03/31/19 12:37 Freq: Status: Active Protocol: Document 04/03/19 11:19 LRN (Rec: 04/03/19 12:16 LRN [id number]) Physical Therapy Assessment Goals Six Impairment Poor awareness of proper body mechanics and hip hinging techniques Short Term Goal (STG) Pt will be educated in proper hip hinging techniques with transfers and proper body mechanics for travel. STG Duration 04/16/18 Five Impairment Constant low back pain. Longterm Goal (LTG) Decrease pain to intermittent in nature with pain no greater than 3-4/10 after hiking and no pain while at rest. LTG Duration 07/29/19 Four Impairment Bilateral hip pain Longterm Goal (LTG) Maximize pain relief of bilateral hips with no sharp pain onset upon sit to stand and hiking. LTG Duration 07/29/19 Three Impairment Decreased hip mobility (IR 25 degs R, 30 degs L , ER 40 degs L, 50 degs R) Short Term Goal (STG) Pt will be independent in a self care hip flexibility ROM program STG Duration 04/16/18 (04/03/19: GOAL MET) Two Impairment Decreased core & L hip strength (flex 3/5, AD 1+/5) Short Term Goal (STG) Pt will be on and independent self care program to strengthen her L hip. STG Duration 04/16/18 Clinical Ob Goal (LTG) Improve L hip strength to no less than 4/5 with flexion and 3/5 with hip AD. LTG Duration 07/29/19 One Impairment Lacks appropriate HEP Longterm Goal (LTG) Pt will be independent with a self care HEP to minimize hip and back pain and maximize pain relief. LTG Duration 07/29/19 (04/03/19: Progressing) Assessment Summary Assessment Pt presents with L innominate inflare/R innominate outflare, corrected with treatment on both sides. Pt is not able to perform X-legged Piriformis stretch due to too uncomfortable. Tight hip muscles L>R. Fair understanding of TA contraction, review is ineeded . Physical Therapy Plan Frequency and Duration Frequency of Treatment 2x/Week Plan of Care Start Date 03/31/19 Plan of Care End Date 07/29/19 Next Visit Focus/Plan Next Note Type Treatment Note Next Visit Plan Review TA & issue handout if needed. Review issued HEP. Education needed for posturing for travel and sitting, and body mechanics training. Gait training with use of cane; assess special tests: Log Roll , Piriformis, Monty & knee mobility; June Test, then MET to correct an L inflare w/ possible posterior rotation, and sacral R rotation and flexion. Once position corrected, stabilize pelvis & core. Hip mobility HEP to improve IR, L ER, R AB, cruz AD , and strength of L hip flexor and adductors.
--- NOTE | 2019-04-07 16:21 | PT.OTN ---
Current Diagnoses Pain in left hip (04/07/19) Stiffness of unspecified hip, not elsewhere classified (04/07/19) Muscle weakness (generalized) (04/07/19) Pain in left leg (04/07/19) Physical Therapy Treatment Note PT-OP-A Visit Information Start: 03/31/19 12:37 Freq: Status: Active Protocol: Document 04/07/19 15:06 LRN (Rec: 04/07/19 16:19 LRN [id number]) Out-Patient Physical Therapy Visit Information Visit Information Visit Type Treatment Note Visit Start Time 15:06 Visit Stop Time 15:53 Total Visit Minutes 47 Visit Number 3 Number of COIL FORMER Visits 0 Evaluation Information Evaluation Date 03/31/19 Precautions Precautions Arthritis Claire's Disease Hx of Fracture of L Big Toe. PT-OP-B Current Condition Start: 03/31/19 12:37 Freq: Status: Active Protocol: Document 03/31/19 13:34 LRN (Rec: 03/31/19 15:50 LRN [id number]) Current Condition History of Current Condition Onset Date Problematic 1 month, aching for 2 months Current Complaints L hip pain radiating into the lateral leg. 2 yrs ago started in the R hip History of Current Condition Sudden onset of pain with hiking causing change in gait. L hip pain is problematic because it hurts after she gets up, on the inital step, while in bed at night, and in the middle of a walk. Has numbness in the R leg due to an old back thing (4-5 yrs ago couldn't get up because L5 -S1 slip). Trying to keep the pain at a level of 5/10 with medications. Has had gastritis from taking too much Advil. Prior Treatments and Tests X-rays 3 days ago, found unremarkable. Future Testing and Treatments Planned None Treatment Goals Patient/Caregiver Goals Pt goal is to be stronger, gain flexibility, learn how to make hips stronger. Maximize pain relief. Prior Functional Status Baseline Function- ADL's Independent Baseline Function- Mobility Independent Baseline Function- Gait Walk up to 12 miles, once a week with achy lower back after walks Current Functional Impairments (Reported) Functional Limitations- ADL's Currently limited in how far she can walk and what she can do. Walking limited maximally to 2.5-3 miles around [facility] , requiring her to slow down 3 -4 times and to work through some of the discomfort. Functional Limitations- Recreation/ No pain with water aerobics or Hobbies afterwards excessively, pain 4-10/16. Personal Factors Other Personal Factors That May Effect Leaving 04/18-mid 06/26 (going Therapy/Recovery to [facility] and [facility]). PT-OP-C Subjective Start: 03/31/19 12:37 Freq: Status: Active Protocol: Document 04/07/19 15:06 LRN (Rec: 04/07/19 16:19 LRN [id number]) OP-PT Subjective Patient Comments Patient Comments Stretching is causing pain. No sharp pain with sit to stand or on first step. PT-OP-G Mobility & Gait Start: 03/31/19 12:37 Freq: Status: Active Protocol: Document 03/31/19 13:34 LRN (Rec: 03/31/19 15:50 LRN [id number]) OP Gait Assessment Gait Gait Assistance Required: Independent Able to Maintain Weight Bearing Status Yes During Gait Assistive Devices Assistive Device None PT-OP-H Neuro Start: 03/31/19 12:37 Freq: Status: Active Protocol: Document 03/31/19 13:34 LRN (Rec: 03/31/19 15:50 LRN [id number]) Sensation Evaluation Comments Summary Comments Pt starts with normal sensation, but after DTR testing pt complained of numbness tingling in the lateral R LE. Deep Tendon Reflex & Clonus Assessment Deep Tendon Reflex Bilateral Achilles Deep Tendon Reflex 1+ Diminished Bilateral Patellar Deep Tendon Reflex 3+ Normal But Brisk PT-OP-J Posture/Palpation/Skin Start: 03/31/19 12:37 Freq: Status: Active Protocol: Document 03/31/19 13:34 LRN (Rec: 03/31/19 15:50 LRN [id number]) Posture Evaluation Position Standing Evaluation View All positions Comments Posture Comments Pt demonstrates a visible Dowagers Hump and increased Kyphosis and Lordosis. Standing: Deep L PSIS. Prone: ALA is posterior on R, normalizes with MICHELL. RUSSEL is posterior on L, normalizes with MICHELL. Palpation Assessment Location Hip Palpation Location Lateral hip at Grtr trochanter , TFL, IT-Band, Piriformis, Sacrum Palpation Findings Tenderness Palpation Details L lateral hip tendereness at Grtr Trochanter, TFL, IT-Band, Piriformis, Sacral border. R lateral hip tenderness at Grtr Trochanter, TFL, IT-Band, Inferior Sacral Border, Upper Gluteal Muscle. Lumbar TrP & facets: L1, L2, L3 is tender. Lumbar Spinous Process: L4-S1 is tender. PT-OP-K Range of Motion Start: 03/31/19 12:37 Freq: Status: Active Protocol: Document 03/31/19 13:34 LRN (Rec: 03/31/19 15:50 LRN [id number]) Lumbar Spine Range of Motion Lumbar Spine Active Degrees Testing Position Standing Flexion 115 Extension 20 Rotation Left 45 Rotation Right 45 Lateral Flexion Left 18 Lateral Flexion Right 15 Hip Goniometric Range of Motion Hip Right Passive Testing Position Supine Straight Leg Raise 95 Extension 5 Abduction 30 Internal Rotation 25 External Rotation 50 Left Passive Testing Position Supine, Prone for Ext Straight Leg Raise 90 Extension 0 Abduction 50 Internal Rotation 30 External Rotation 40 PT-OP-L Special Tests Start: 03/31/19 12:37 Freq: Status: Active Protocol: Document 03/31/19 13:34 LRN (Rec: 03/31/19 15:50 LRN [id number]) Special Tests Hip Special Tests [facility] Resisted Hip Flexion Test Results - bilaterally Straight Leg Raise Test Results - bilaterally MAGALY Test Results Right: Negative. Left: Tight hip rotators. PT-OP-M Strength Start: 03/31/19 12:37 Freq: Status: Active Protocol: Document 03/31/19 13:34 LRN (Rec: 03/31/19 15:50 LRN [id number]) Trunk Strength Trunk Manual Muscle Testing Testing Position Supine Core Stabilization Decreased core stability with manual muscle testing of hips. Pt needed v.cuing to maintain sidelie position due to weak TA. Hip Strength Hip Manual Muscle Testing Right Reason Not Measured WFL Comments Generally 5/5. Left Flexion (L2) 3 Fair Adduction 1 Trace Reason Not Measured WFL Comments Generally 5/5 except those listed above. Knee Strength Knee Manual Muscle Testing Right Reason Not Measured WFL Left Reason Not Measured WFL PT-OP-Q Treatments Start: 03/31/19 12:37 Freq: Status: Active Protocol: Document 04/07/19 15:06 LRN (Rec: 04/07/19 16:19 LRN [id number]) Therapeutic Exercises Supine Exercises LE roll in/out w/PF & TA tightening Supine Exercise Name LE roll in/out w/PF & TA tightening Reps/Minutes 3' Comments 1x PF ><, 1x w/o PF >< TA Supine Exercise Name TA tightening Reps/Minutes 10 S hold x 10 Fig 4 stretch Supine Exercise Name Fig 4 stretch Side bilateral Reps/Minutes 4' Iliopsoas stretch Supine Exercise Name One leg off end of plinth Side bilateral Comments Extra time taken due to foot cramps Lateral hip stretch Supine Exercise Name Lateral hip stretch Side bilateral Piriformis Supine Exercise Name Piriformis stretch Side bilateral Sidelying Exercises Hip AD Sidelying Exercise Name Hip AD Side bilateral Reps/Minutes 3-4x each Comments Extra time taken between ex's due to foot cramps. Gait Training Gait Activity Gait without AD Description Gait assessment and training in normal gait. Device Used None Surface level Distance/Duration 2' Comments Training in what the pt should look out for when deciding on need for AD. Self-Care/Home Management Treatment Education Patient Education Body Mechanics Other Education Pt educated in proper sitting for travel and discussed options of supporting back and neck for comfort. Activities Self-Care/Home Management Activities I/S pt in HEP: Sidelye hip AD strengthening, start 2-3 reps and slowly increase to 10 reps. PT-OP-R Modalities Start: 03/31/19 12:37 Freq: Status: Active Protocol: Document 04/03/19 11:19 LRN (Rec: 04/03/19 12:17 LRN [id number]) Hot Pack/Cold Pack Treatment Hot Pack Location Hips Patient Position Hooklying Treatment Duration (minutes) 10 Comments During hip stretching PT-OP-T Assessment and Plan Start: 03/31/19 12:37 Freq: Status: Active Protocol: Document 04/07/19 15:06 LRN (Rec: 04/07/19 16:19 LRN [id number]) Physical Therapy Assessment Goals Six Impairment Poor awareness of proper body mechanics and hip hinging techniques Short Term Goal (STG) Pt will be educated in proper hip hinging techniques with transfers and proper body mechanics for travel. STG Duration 04/16/18 (04/07/19: GOAL MET Five Impairment Constant low back pain. Scanning Supervisor Goal (LTG) Decrease pain to intermittent in nature with pain no greater than 3-4/10 after hiking and no pain while at rest. LTG Duration 07/29/19 Four Impairment Bilateral hip pain Residential Goal (LTG) Maximize pain relief of bilateral hips with no sharp pain onset upon sit to stand and hiking. 04/07/19: Pt is not experiencing sharp pains, only general pain. LTG Duration 07/29/19 (04/07/19: PARTIALLY MET) Three Impairment Decreased hip mobility (IR 25 degs R, 30 degs L , ER 40 degs L, 50 degs R) Short Term Goal (STG) Pt will be independent in a self care hip flexibility ROM program STG Duration 04/16/18 (04/03/19: GOAL MET) Two Impairment Decreased core & L hip strength (flex 3/5, AD 1+/5) Short Term Goal (STG) Pt will be on and independent self care program to strengthen her L hip. STG Duration 04/16/18 (04/07/19: Progressing ) Residential Goal (LTG) Improve L hip strength to no less than 4/5 with flexion and 3/5 with hip AD. LTG Duration 07/29/19 One Impairment Lacks appropriate HEP Residential Goal (LTG) Pt will be independent with a self care HEP to minimize hip and back pain and maximize pain relief. LTG Duration 07/29/19 (04/07/19: Progressing) Assessment Summary Assessment Pt able to perform TA without difficulty and she has a slight pelvic obliquity with R innominate inflared/L innominate outflared, easily corrected. She has good recall of her HEP; therefore she appears to be compliant with her HEP. Pt has greater flexibility at the R hip for Piriformis stretch. Gait is now normal, no need for assistive device for gait. March test shows increased movement at L SIJ. Bilaterally, her Piriformis ms is tight and knee mobility is normal. Sacrum not checked today. Physical Therapy Plan Frequency and Duration Frequency of Treatment 2x/Week Plan of Care Start Date 03/31/19 Plan of Care End Date 07/29/19 Next Visit Focus/Plan Next Note Type Treatment Note Next Visit Plan [place] with a self care program by 04/14/19 for her trip and follow up care on her return. Assess special tests : Monty Test. Correct a R outflare/L inflare and a sacral R rotation/flexion as needed. Add to HEP: cruz AD mobility, and strength of L hip flexor and L adductors, ( current program is to improve IR, L ER, R AB mobility). Progress towards core/pelvic stabilization.
--- NOTE | 2019-04-07 16:30 | PT.OTN ---
Current Diagnoses Pain in left hip (04/07/19) Stiffness of unspecified hip, not elsewhere classified (04/07/19) Muscle weakness (generalized) (04/07/19) Pain in left leg (04/07/19) Physical Therapy Treatment Note PT-OP-A Visit Information Start: 03/31/19 12:37 Freq: Status: Active Protocol: Document 04/07/19 15:06 LRN (Rec: 04/07/19 16:19 LRN [id number]) Out-Patient Physical Therapy Visit Information Visit Information Visit Type Treatment Note Visit Start Time 15:06 Visit Stop Time 15:53 Total Visit Minutes 47 Visit Number 3 Number of CRADLE SLIDE MAKER Visits 0 Evaluation Information Evaluation Date 03/31/19 Precautions Precautions Arthritis Claire's Disease Hx of Fracture of L Big Toe. PT-OP-B Current Condition Start: 03/31/19 12:37 Freq: Status: Active Protocol: Document 03/31/19 13:34 LRN (Rec: 03/31/19 15:50 LRN [id number]) Current Condition History of Current Condition Onset Date Problematic 1 month, aching for 2 months Current Complaints L hip pain radiating into the lateral leg. 2 yrs ago started in the R hip History of Current Condition Sudden onset of pain with hiking causing change in gait. L hip pain is problematic because it hurts after she gets up, on the inital step, while in bed at night, and in the middle of a walk. Has numbness in the R leg due to an old back thing (4-5 yrs ago couldn't get up because L5 -S1 slip). Trying to keep the pain at a level of 5/10 with medications. Has had gastritis from taking too much Advil. Prior Treatments and Tests X-rays 3 days ago, found unremarkable. Future Testing and Treatments Planned None Treatment Goals Patient/Caregiver Goals Pt goal is to be stronger, gain flexibility, learn how to make hips stronger. Maximize pain relief. Prior Functional Status Baseline Function- ADL's Independent Baseline Function- Mobility Independent Baseline Function- Gait Walk up to 12 miles, once a week with achy lower back after walks Current Functional Impairments (Reported) Functional Limitations- ADL's Currently limited in how far she can walk and what she can do. Walking limited maximally to 2.5-3 miles around [facility] , requiring her to slow down 3 -4 times and to work through some of the discomfort. Functional Limitations- Recreation/ No pain with water aerobics or Hobbies afterwards excessively, pain 4-10/16. Personal Factors Other Personal Factors That May Effect Leaving 04/18-mid 06/26 (going Therapy/Recovery to [facility]). PT-OP-C Subjective Start: 03/31/19 12:37 Freq: Status: Active Protocol: Document 04/07/19 15:06 LRN (Rec: 04/07/19 16:19 LRN [id number]) OP-PT Subjective Patient Comments Patient Comments Stretching is causing pain. No sharp pain with sit to stand or on first step. PT-OP-G Mobility & Gait Start: 03/31/19 12:37 Freq: Status: Active Protocol: Document 03/31/19 13:34 LRN (Rec: 03/31/19 15:50 LRN [id number]) OP Gait Assessment Gait Gait Assistance Required: Independent Able to Maintain Weight Bearing Status Yes During Gait Assistive Devices Assistive Device None PT-OP-H Neuro Start: 03/31/19 12:37 Freq: Status: Active Protocol: Document 03/31/19 13:34 LRN (Rec: 03/31/19 15:50 LRN [id number]) Sensation Evaluation Comments Summary Comments Pt starts with normal sensation, but after DTR testing pt complained of numbness tingling in the lateral R LE. Deep Tendon Reflex & Clonus Assessment Deep Tendon Reflex Bilateral Achilles Deep Tendon Reflex 1+ Diminished Bilateral Patellar Deep Tendon Reflex 3+ Normal But Brisk PT-OP-J Posture/Palpation/Skin Start: 03/31/19 12:37 Freq: Status: Active Protocol: Document 03/31/19 13:34 LRN (Rec: 03/31/19 15:50 LRN [id number]) Posture Evaluation Position Standing Evaluation View All positions Comments Posture Comments Pt demonstrates a visible Dowagers Hump and increased Kyphosis and Lordosis. Standing: Deep L PSIS. Prone: ALA is posterior on R, normalizes with MICHELL. RUSSEL is posterior on L, normalizes with MICHELL. Palpation Assessment Location Hip Palpation Location Lateral hip at Grtr trochanter , TFL, IT-Band, Piriformis, Sacrum Palpation Findings Tenderness Palpation Details L lateral hip tendereness at Grtr Trochanter, TFL, IT-Band, Piriformis, Sacral border. R lateral hip tenderness at Grtr Trochanter, TFL, IT-Band, Inferior Sacral Border, Upper Gluteal Muscle. Lumbar TrP & facets: L1, L2, L3 is tender. Lumbar Spinous Process: L4-S1 is tender. PT-OP-K Range of Motion Start: 03/31/19 12:37 Freq: Status: Active Protocol: Document 04/07/19 15:06 LRN (Rec: 04/07/19 16:26 LRN [id number]) Knee Goniometric Range of Motion Knee ROM Limitations Comments Bilateral knee mobility is WNL . PT-OP-L Special Tests Start: 03/31/19 12:37 Freq: Status: Active Protocol: Document 04/07/19 15:06 LRN (Rec: 04/07/19 16:25 LRN [id number]) Special Tests Hip Special Tests Log Roll Test Test Results negative bilaterally Comments Indicates negative intra- articular hip pathology. PT-OP-M Strength Start: 03/31/19 12:37 Freq: Status: Active Protocol: Document 03/31/19 13:34 LRN (Rec: 03/31/19 15:50 LRN [id number]) Trunk Strength Trunk Manual Muscle Testing Testing Position Supine Core Stabilization Decreased core stability with manual muscle testing of hips. Pt needed v.cuing to maintain sidelie position due to weak TA. Hip Strength Hip Manual Muscle Testing Right Reason Not Measured WFL Comments Generally 5/5. Left Flexion (L2) 3 Fair Adduction 1 Trace Reason Not Measured WFL Comments Generally 5/5 except those listed above. Knee Strength Knee Manual Muscle Testing Right Reason Not Measured WFL Left Reason Not Measured WFL PT-OP-Q Treatments Start: 03/31/19 12:37 Freq: Status: Active Protocol: Document 04/07/19 15:06 LRN (Rec: 04/07/19 16:19 LRN [id number]) Therapeutic Exercises Supine Exercises LE roll in/out w/PF & TA tightening Supine Exercise Name LE roll in/out w/PF & TA tightening Reps/Minutes 3' Comments 1x PF ><, 1x w/o PF >< TA Supine Exercise Name TA tightening Reps/Minutes 10 S hold x 10 Fig 4 stretch Supine Exercise Name Fig 4 stretch Side bilateral Reps/Minutes 4' Iliopsoas stretch Supine Exercise Name One leg off end of plinth Side bilateral Comments Extra time taken due to foot cramps Lateral hip stretch Supine Exercise Name Lateral hip stretch Side bilateral Piriformis Supine Exercise Name Piriformis stretch Side bilateral Sidelying Exercises Hip AD Sidelying Exercise Name Hip AD Side bilateral Reps/Minutes 3-4x each Comments Extra time taken between ex's due to foot cramps. Gait Training Gait Activity Gait without AD Description Gait assessment and training in normal gait. Device Used None Surface level Distance/Duration 2' Comments Training in what the pt should look out for when deciding on need for AD. Manual Therapy Treatment Joint Mobilizations Innominates Joint Correction for R innominate outflair. Body Position Supine Self-Care/Home Management Treatment Education Patient Education Body Mechanics Other Education Pt educated in proper sitting for travel and discussed options of supporting back and neck for comfort. Activities Self-Care/Home Management Activities I/S pt in HEP: Sidelye hip AD strengthening, start 2-3 reps and slowly increase to 10 reps. PT-OP-R Modalities Start: 03/31/19 12:37 Freq: Status: Active Protocol: Document 04/03/19 11:19 LRN (Rec: 04/03/19 12:17 LRN [id number]) Hot Pack/Cold Pack Treatment Hot Pack Location Hips Patient Position Hooklying Treatment Duration (minutes) 10 Comments During hip stretching PT-OP-T Assessment and Plan Start: 03/31/19 12:37 Freq: Status: Active Protocol: Document 04/07/19 15:06 LRN (Rec: 04/07/19 16:19 LRN [id number]) Physical Therapy Assessment Goals Six Impairment Poor awareness of proper body mechanics and hip hinging techniques Short Term Goal (STG) Pt will be educated in proper hip hinging techniques with transfers and proper body mechanics for travel. STG Duration 04/16/18 (04/07/19: GOAL MET Five Impairment Constant low back pain. Nursing Home Goal (LTG) Decrease pain to intermittent in nature with pain no greater than 3-4/10 after hiking and no pain while at rest. LTG Duration 07/29/19 Four Impairment Bilateral hip pain Lead Electrical Engineer Goal (LTG) Maximize pain relief of bilateral hips with no sharp pain onset upon sit to stand and hiking. 04/07/19: Pt is not experiencing sharp pains, only general pain. LTG Duration 07/29/19 (04/07/19: PARTIALLY MET) Three Impairment Decreased hip mobility (IR 25 degs R, 30 degs L , ER 40 degs L, 50 degs R) Short Term Goal (STG) Pt will be independent in a self care hip flexibility ROM program STG Duration 04/16/18 (04/03/19: GOAL MET) Two Impairment Decreased core & L hip strength (flex 3/5, AD 1+/5) Short Term Goal (STG) Pt will be on and independent self care program to strengthen her L hip. STG Duration 04/16/18 (04/07/19: Progressing ) Lead Electrical Engineer Goal (LTG) Improve L hip strength to no less than 4/5 with flexion and 3/5 with hip AD. LTG Duration 07/29/19 One Impairment Lacks appropriate HEP Nursing Home Goal (LTG) Pt will be independent with a self care HEP to minimize hip and back pain and maximize pain relief. LTG Duration 07/29/19 (04/07/19: Progressing) Assessment Summary Assessment Pt able to perform TA without difficulty and she has a slight pelvic obliquity with R innominate outflared/L innominate inflared, easily corrected. She has good recall of her HEP; therefore she appears to be compliant with her HEP. Pt has greater flexibility at the R hip for Piriformis stretch. Gait is now normal, no need for assistive device for gait. March test shows increased movement at L SIJ. Bilaterally, her Piriformis ms is tight and knee mobility is normal. Sacrum not checked today. Physical Therapy Plan Frequency and Duration Frequency of Treatment 2x/Week Plan of Care Start Date 03/31/19 Plan of Care End Date 07/29/19 Next Visit Focus/Plan Next Note Type Treatment Note Next Visit Plan [place] with a self care program by 04/14/19 for her trip and follow up care on her return. Assess special tests : Monty Test. Correct a R outflare/L inflare and a sacral R rotation/flexion as needed. Add to HEP: cruz AD mobility, and strength of L hip flexor and L adductors, ( current program is to improve IR, L ER, R AB mobility). Progress towards core/pelvic stabilization.
--- NOTE | 2019-04-11 15:36 | PT.OTN ---
Current Diagnoses Pain in left hip (04/11/19) Stiffness of unspecified hip, not elsewhere classified (04/11/19) Muscle weakness (generalized) (04/11/19) Pain in left leg (04/11/19) Physical Therapy Treatment Note PT-OP-A Visit Information Start: 03/31/19 12:37 Freq: Status: Active Protocol: Document 04/11/19 14:19 LRN (Rec: 04/11/19 15:34 LRN [id number]) Out-Patient Physical Therapy Visit Information Visit Information Visit Type Treatment Note Visit Start Time 14:19 Visit Stop Time 15:03 Total Visit Minutes 44 Visit Number 4 Number of PULL THROUGH HOOKER Visits 0 Evaluation Information Evaluation Date 03/31/19 Precautions Precautions Arthritis Claire's Disease Hx of Fracture of L Big Toe. PT-OP-B Current Condition Start: 03/31/19 12:37 Freq: Status: Active Protocol: Document 03/31/19 13:34 LRN (Rec: 03/31/19 15:50 LRN [id number]) Current Condition History of Current Condition Onset Date Problematic 1 month, aching for 2 months Current Complaints L hip pain radiating into the lateral leg. 2 yrs ago started in the R hip History of Current Condition Sudden onset of pain with hiking causing change in gait. L hip pain is problematic because it hurts after she gets up, on the inital step, while in bed at night, and in the middle of a walk. Has numbness in the R leg due to an old back thing (4-5 yrs ago couldn't get up because L5 -S1 slip). Trying to keep the pain at a level of 5/10 with medications. Has had gastritis from taking too much Advil. Prior Treatments and Tests X-rays 3 days ago, found unremarkable. Future Testing and Treatments Planned None Treatment Goals Patient/Caregiver Goals Pt goal is to be stronger, gain flexibility, learn how to make hips stronger. Maximize pain relief. Prior Functional Status Baseline Function- ADL's Independent Baseline Function- Mobility Independent Baseline Function- Gait Walk up to 12 miles, once a week with achy lower back after walks Current Functional Impairments (Reported) Functional Limitations- ADL's Currently limited in how far she can walk and what she can do. Walking limited maximally to 2.5-3 miles around [facility] , requiring her to slow down 3 -4 times and to work through some of the discomfort. Functional Limitations- Recreation/ No pain with water aerobics or Hobbies afterwards excessively, pain 4-10/16. Personal Factors Other Personal Factors That May Effect Leaving 04/18-mid 06/26 (going Therapy/Recovery to [facility] and [facility]). PT-OP-C Subjective Start: 03/31/19 12:37 Freq: Status: Active Protocol: Document 04/11/19 14:19 LRN (Rec: 04/11/19 15:34 LRN [id number]) OP-PT Subjective Patient Comments Patient Comments States she is much better. For past 2 days because in less pain and can get up/down from chair with very little discomfort in L hip. Currently has ache in the L knee and lower leg and bottom of foot. PT-OP-G Mobility & Gait Start: 03/31/19 12:37 Freq: Status: Active Protocol: Document 03/31/19 13:34 LRN (Rec: 03/31/19 15:50 LRN [id number]) OP Gait Assessment Gait Gait Assistance Required: Independent Able to Maintain Weight Bearing Status Yes During Gait Assistive Devices Assistive Device None PT-OP-H Neuro Start: 03/31/19 12:37 Freq: Status: Active Protocol: Document 03/31/19 13:34 LRN (Rec: 03/31/19 15:50 LRN [id number]) Sensation Evaluation Comments Summary Comments Pt starts with normal sensation, but after DTR testing pt complained of numbness tingling in the lateral R LE. Deep Tendon Reflex & Clonus Assessment Deep Tendon Reflex Bilateral Achilles Deep Tendon Reflex 1+ Diminished Bilateral Patellar Deep Tendon Reflex 3+ Normal But Brisk PT-OP-J Posture/Palpation/Skin Start: 03/31/19 12:37 Freq: Status: Active Protocol: Document 03/31/19 13:34 LRN (Rec: 03/31/19 15:50 LRN [id number]) Posture Evaluation Position Standing Evaluation View All positions Comments Posture Comments Pt demonstrates a visible Dowagers Hump and increased Kyphosis and Lordosis. Standing: Deep L PSIS. Prone: ALA is posterior on R, normalizes with MICHELL. RUSSEL is posterior on L, normalizes with MICHELL. Palpation Assessment Location Hip Palpation Location Lateral hip at Grtr trochanter , TFL, IT-Band, Piriformis, Sacrum Palpation Findings Tenderness Palpation Details L lateral hip tendereness at Grtr Trochanter, TFL, IT-Band, Piriformis, Sacral border. R lateral hip tenderness at Grtr Trochanter, TFL, IT-Band, Inferior Sacral Border, Upper Gluteal Muscle. Lumbar TrP & facets: L1, L2, L3 is tender. Lumbar Spinous Process: L4-S1 is tender. PT-OP-K Range of Motion Start: 03/31/19 12:37 Freq: Status: Active Protocol: Document 04/07/19 15:06 LRN (Rec: 04/07/19 16:26 LRN [id number]) Knee Goniometric Range of Motion Knee ROM Limitations Comments Bilateral knee mobility is WNL . PT-OP-L Special Tests Start: 03/31/19 12:37 Freq: Status: Active Protocol: Document 04/07/19 15:06 LRN (Rec: 04/07/19 16:25 LRN [id number]) Special Tests Hip Special Tests Log Roll Test Test Results negative bilaterally Comments Indicates negative intra- articular hip pathology. PT-OP-M Strength Start: 03/31/19 12:37 Freq: Status: Active Protocol: Document 03/31/19 13:34 LRN (Rec: 03/31/19 15:50 LRN [id number]) Trunk Strength Trunk Manual Muscle Testing Testing Position Supine Core Stabilization Decreased core stability with manual muscle testing of hips. Pt needed v.cuing to maintain sidelie position due to weak TA. Hip Strength Hip Manual Muscle Testing Right Reason Not Measured WFL Comments Generally 5/5. Left Flexion (L2) 3 Fair Adduction 1 Trace Reason Not Measured WFL Comments Generally 5/5 except those listed above. Knee Strength Knee Manual Muscle Testing Right Reason Not Measured WFL Left Reason Not Measured WFL PT-OP-Q Treatments Start: 03/31/19 12:37 Freq: Status: Active Protocol: Document 04/11/19 14:19 LRN (Rec: 04/11/19 15:34 LRN [id number]) Therapeutic Exercises Supine Exercises TA w/Leg lowering june Supine Exercise Name TA w/cruz Leg lowering/June Reps/Minutes 2x Comments Assisted movement. TA w/Cruz Leg slide Supine Exercise Name TA w/Cruz Leg slide Reps/Minutes 7x TA w/Cruz BKFO Supine Exercise Name TA w/cruz BKFO Reps/Minutes 10x 2 DKTC stretch Supine Exercise Name DKTC stretch Reps/Minutes 2' Bridging Supine Exercise Name Bridging Reps/Minutes 10x 3 LE roll in/out w/PF & TA tightening Supine Exercise Name LE roll in/out w/PF & TA tightening Reps/Minutes 3' Comments 1x PF ><, 1x w/o PF >< TA Supine Exercise Name TA tightening Reps/Minutes 10 S hold x 10 Fig 4 stretch Supine Exercise Name Fig 4 stretch Side bilateral Reps/Minutes 4' Comments L side is hardest Lateral hip stretch Supine Exercise Name Lateral hip stretch Side bilateral Manual Therapy Treatment Joint Mobilizations Innominates Joint I/S of proper set up for self assessment. Self-Care/Home Management Treatment Education Patient Education Home Exercise Program Other Education Educated pt in progressive HEP of Progressive Stability/ Core Strengthening Program with explanations and discussion of progressing of program. Educated pt in self assessment for innominate dysfunctions with handout issued. Extra time needed for awareness training of positioning of feet to properly assess length dysfunctions. Activities Self-Care/Home Management Activities I/S. reviewed, and issued HEP: Progressive Stability/Core Strengthening Program: 1) Pelvic Brace & 2) Knee Out exercise with modification of ex for symmetrical movement. Reviewed ex's 3 & 4 for when able to progress to the exercise. Held #5. PT-OP-R Modalities Start: 03/31/19 12:37 Freq: Status: Active Protocol: Document 04/03/19 11:19 LRN (Rec: 04/03/19 12:17 LRN [id number]) Hot Pack/Cold Pack Treatment Hot Pack Location Hips Patient Position Hooklying Treatment Duration (minutes) 10 Comments During hip stretching PT-OP-T Assessment and Plan Start: 03/31/19 12:37 Freq: Status: Active Protocol: Document 04/11/19 14:19 LRN (Rec: 04/11/19 15:34 LRN [id number]) Physical Therapy Assessment Goals Six Impairment Poor awareness of proper body mechanics and hip hinging techniques Short Term Goal (STG) Pt will be educated in proper hip hinging techniques with transfers and proper body mechanics for travel. STG Duration 04/16/18 (04/07/19: GOAL MET Five Impairment Constant low back pain. Residential Goal (LTG) Decrease pain to intermittent in nature with pain no greater than 3-4/10 after hiking and no pain while at rest. LTG Duration 07/29/19 Four Impairment Bilateral hip pain Residential Goal (LTG) Maximize pain relief of bilateral hips with no sharp pain onset upon sit to stand and hiking. 04/07/19: Pt is not experiencing sharp pains, only general pain. LTG Duration 07/29/19 (04/07/19: PARTIALLY MET) Three Impairment Decreased hip mobility (IR 25 degs R, 30 degs L , ER 40 degs L, 50 degs R) Short Term Goal (STG) Pt will be independent in a self care hip flexibility ROM program STG Duration 04/16/18 (04/03/19: GOAL MET) Two Impairment Decreased core & L hip strength (flex 3/5, AD 1+/5) Short Term Goal (STG) Pt will be on and independent self care program to strengthen her L hip. STG Duration 04/16/18 (04/07/19: Progressing ) Gravel Roofer Goal (LTG) Improve L hip strength to no less than 4/5 with flexion and 3/5 with hip AD. LTG Duration 07/29/19 One Impairment Lacks appropriate HEP Residential Goal (LTG) Pt will be independent with a self care HEP to minimize hip and back pain and maximize pain relief. LTG Duration 07/29/19 (04/11/19: Progressing) Assessment Summary Assessment Pt pelvis was stable and in neutral to start. She had - SLR bilaterally; therefore complaints of lower leg pain may be sciatic pain related or related to L4-L5 joint dysfunction. Unable to check Sacrum and L/S due to time constraint. Physical Therapy Plan Frequency and Duration Frequency of Treatment 2x/Week Plan of Care Start Date 03/31/19 Plan of Care End Date 07/29/19 Next Visit Focus/Plan Next Note Type Treatment Note Next Visit Plan Assess positioning of Sacrum & Lumbar spine for mechanical dysfunction. [place] with a self care program by 04/14/19 for her trip and follow up care on her return. Assess special tests: Monty Test. Correct a R outflare/L inflare and a sacral R rotation/flexion as needed. Add to HEP: cruz AD mobility, and strength of L hip flexor and L adductors, (current program is to improve IR, L ER , R AB mobility). Progress towards core/pelvic stabilization.
--- NOTE | 2019-04-15 15:29 | PT.OTN ---
Current Diagnoses Pain in left hip (04/15/19) Stiffness of unspecified hip, not elsewhere classified (04/15/19) Muscle weakness (generalized) (04/15/19) Pain in left leg (04/15/19) Physical Therapy Treatment Note PT-OP-A Visit Information Start: 03/31/19 12:37 Freq: Status: Active Protocol: Document 04/15/19 14:21 LRN (Rec: 04/15/19 15:28 LRN [id number]) Out-Patient Physical Therapy Visit Information Visit Information Visit Type Treatment Note Visit Start Time 14:21 Visit Stop Time 15:01 Total Visit Minutes 40 Visit Number 5 Number of HEREDITARY CANCER PROGRAM COORDINATOR Visits 0 Evaluation Information Evaluation Date 03/31/19 Precautions Precautions Arthritis Claire's Disease Hx of Fracture of L Big Toe. PT-OP-B Current Condition Start: 03/31/19 12:37 Freq: Status: Active Protocol: Document 03/31/19 13:34 LRN (Rec: 03/31/19 15:50 LRN [id number]) Current Condition History of Current Condition Onset Date Problematic 1 month, aching for 2 months Current Complaints L hip pain radiating into the lateral leg. 2 yrs ago started in the R hip History of Current Condition Sudden onset of pain with hiking causing change in gait. L hip pain is problematic because it hurts after she gets up, on the inital step, while in bed at night, and in the middle of a walk. Has numbness in the R leg due to an old back thing (4-5 yrs ago couldn't get up because L5 -S1 slip). Trying to keep the pain at a level of 5/10 with medications. Has had gastritis from taking too much Advil. Prior Treatments and Tests X-rays 3 days ago, found unremarkable. Future Testing and Treatments Planned None Treatment Goals Patient/Caregiver Goals Pt goal is to be stronger, gain flexibility, learn how to make hips stronger. Maximize pain relief. Prior Functional Status Baseline Function- ADL's Independent Baseline Function- Mobility Independent Baseline Function- Gait Walk up to 12 miles, once a week with achy lower back after walks Current Functional Impairments (Reported) Functional Limitations- ADL's Currently limited in how far she can walk and what she can do. Walking limited maximally to 2.5-[address] [facility] , requiring her to slow down 3 -4 times and to work through some of the discomfort. Functional Limitations- Recreation/ No pain with water aerobics or Hobbies afterwards excessively, pain 4-10/16. Personal Factors Other Personal Factors That May Effect Leaving 04/18-mid 06/26 (going Therapy/Recovery to [facility]). PT-OP-C Subjective Start: 03/31/19 12:37 Freq: Status: Active Protocol: Document 04/15/19 14:21 LRN (Rec: 04/15/19 15:28 LRN [id number]) OP-PT Subjective Patient Comments Patient Comments Has been aligned. Had a little pain 2 days ago and took Melosicam, and nothing since. No pain sitting for car rides for 30'. PT-OP-G Mobility & Gait Start: 03/31/19 12:37 Freq: Status: Active Protocol: Document 03/31/19 13:34 LRN (Rec: 03/31/19 15:50 LRN [id number]) OP Gait Assessment Gait Gait Assistance Required: Independent Able to Maintain Weight Bearing Status Yes During Gait Assistive Devices Assistive Device None PT-OP-H Neuro Start: 03/31/19 12:37 Freq: Status: Active Protocol: Document 03/31/19 13:34 LRN (Rec: 03/31/19 15:50 LRN [id number]) Sensation Evaluation Comments Summary Comments Pt starts with normal sensation, but after DTR testing pt complained of numbness tingling in the lateral R LE. Deep Tendon Reflex & Clonus Assessment Deep Tendon Reflex Bilateral Achilles Deep Tendon Reflex 1+ Diminished Bilateral Patellar Deep Tendon Reflex 3+ Normal But Brisk PT-OP-J Posture/Palpation/Skin Start: 03/31/19 12:37 Freq: Status: Active Protocol: Document 03/31/19 13:34 LRN (Rec: 03/31/19 15:50 LRN [id number]) Posture Evaluation Position Standing Evaluation View All positions Comments Posture Comments Pt demonstrates a visible Dowagers Hump and increased Kyphosis and Lordosis. Standing: Deep L PSIS. Prone: ALA is posterior on R, normalizes with MICHELL. RUSSEL is posterior on L, normalizes with MICHELL. Palpation Assessment Location Hip Palpation Location Lateral hip at Grtr trochanter , TFL, IT-Band, Piriformis, Sacrum Palpation Findings Tenderness Palpation Details L lateral hip tendereness at Grtr Trochanter, TFL, IT-Band, Piriformis, Sacral border. R lateral hip tenderness at Grtr Trochanter, TFL, IT-Band, Inferior Sacral Border, Upper Gluteal Muscle. Lumbar TrP & facets: L1, L2, L3 is tender. Lumbar Spinous Process: L4-S1 is tender. PT-OP-K Range of Motion Start: 03/31/19 12:37 Freq: Status: Active Protocol: Document 04/07/19 15:06 LRN (Rec: 04/07/19 16:26 LRN [id number]) Knee Goniometric Range of Motion Knee ROM Limitations Comments Bilateral knee mobility is WNL . PT-OP-L Special Tests Start: 03/31/19 12:37 Freq: Status: Active Protocol: Document 04/07/19 15:06 LRN (Rec: 04/07/19 16:25 LRN [id number]) Special Tests Hip Special Tests Log Roll Test Test Results negative bilaterally Comments Indicates negative intra- articular hip pathology. PT-OP-M Strength Start: 03/31/19 12:37 Freq: Status: Active Protocol: Document 03/31/19 13:34 LRN (Rec: 03/31/19 15:50 LRN [id number]) Trunk Strength Trunk Manual Muscle Testing Testing Position Supine Core Stabilization Decreased core stability with manual muscle testing of hips. Pt needed v.cuing to maintain sidelie position due to weak TA. Hip Strength Hip Manual Muscle Testing Right Reason Not Measured WFL Comments Generally 5/5. Left Flexion (L2) 3 Fair Adduction 1 Trace Reason Not Measured WFL Comments Generally 5/5 except those listed above. Knee Strength Knee Manual Muscle Testing Right Reason Not Measured WFL Left Reason Not Measured WFL PT-OP-Q Treatments Start: 03/31/19 12:37 Freq: Status: Active Protocol: Document 04/15/19 14:21 LRN (Rec: 04/15/19 15:28 LRN [id number]) Therapeutic Exercises Supine Exercises TA w/BKFO Supine Exercise Name TA w/BKFO Side left Reps/Minutes 10 x TA w/Cruz Leg slide Supine Exercise Name TA w/Cruz Leg slide Side left Reps/Minutes 10x Fig 4 stretch Supine Exercise Name Fig 4 stretch Side bilateral Reps/Minutes 4' Comments L side is hardest Lateral hip stretch Supine Exercise Name Lateral hip stretch Side left Manual Therapy Treatment Joint Mobilizations Lumbar Joint L2-L5 Direction Correcting mild R rotation Grade II Body Position Prone Sacrum Joint R SIJ Direction PA of right ALA Grade III Body Position Prone Self-Care/Home Management Treatment Education Patient Education Home Exercise Program Other Education Discussed positioning in car for travel and discussion of ex bridging to do in car. Discussed awareness of pelvic rotation and identifying rotation (Innominate/umbilicus positioning). Activities Self-Care/Home Management Activities Revised reissued HEP for focus on L side for now until next assessed for: Piriformis stretch, lateral hip stretch, & TA w/Knee out. Added to HEP: TA w/Leg slide (left only for now). Reviewed correction technique for rotation of innominate in hooklie. PT-OP-R Modalities Start: 03/31/19 12:37 Freq: Status: Active Protocol: Document 04/03/19 11:19 LRN (Rec: 04/03/19 12:17 LRN [id number]) Hot Pack/Cold Pack Treatment Hot Pack Location Hips Patient Position Hooklying Treatment Duration (minutes) 10 Comments During hip stretching PT-OP-T Assessment and Plan Start: 03/31/19 12:37 Freq: Status: Active Protocol: Document 04/15/19 14:21 LRN (Rec: 04/15/19 15:28 LRN [id number]) Physical Therapy Assessment Goals Six Impairment Poor awareness of proper body mechanics and hip hinging techniques Short Term Goal (STG) Pt will be educated in proper hip hinging techniques with transfers and proper body mechanics for travel. STG Duration 04/16/18 (04/07/19: GOAL MET Five Impairment Constant low back pain. 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 LTG Duration 07/29/19 Four Impairment Bilateral hip pain Intermediate Goal (LTG) Maximize pain relief of bilateral hips with no sharp pain onset upon sit to stand and hiking. 04/07/19: Pt is not experiencing sharp pains, only general pain. LTG Duration 07/29/19 (04/07/19: PARTIALLY MET) Three Impairment Decreased hip mobility (IR 25 degs R, 30 degs L , ER 40 degs L, 50 degs R) Short Term Goal (STG) Pt will be independent in a self care hip flexibility ROM program STG Duration 04/16/18 (04/03/19: GOAL MET) Two Impairment Decreased core & L hip strength (flex 3/5, AD 1+/5) Short Term Goal (STG) Pt will be on and independent self care program to strengthen her L hip. STG Duration 04/16/18 (04/15/19: Progressed Light strengthening of hip AD/ flexor) Paving Plant Operator Goal (LTG) Improve L hip strength to no less than 4/5 with flexion and 3/5 with hip AD. LTG Duration 07/29/19 One Impairment Lacks appropriate HEP Paving Plant Operator Goal (LTG) Pt will be independent with a self care HEP to minimize hip and back pain and maximize pain relief. LTG Duration 07/29/19 (04/15/19: Progressing) Assessment Summary Assessment Pt starting to have a better understanding of pelvic stability and symmetry. She is having less pain onset overall. Today she had a slight long L leg in supine with sacral R rot of ALA and lumbar spine slightly R rotated. No inflare/outflare noted. Physical Therapy Plan Frequency and Duration Frequency of Treatment 2x/Week Plan of Care Start Date 03/31/19 Plan of Care End Date 07/29/19 Next Visit Focus/Plan Next Note Type Treatment Note Next Visit Plan Recheck for effect of L hip AD /Flexor strengthening on pelvic positioning. If neutral revise to cruz strengthening and progress L AD/flexor strengthening. Update self care program by 04/17/19 for her trip and follow up with recheck on her return (?date). Assess special tests: Monty Test. Correct sacral R rotation/flexion as needed. Add to HEP: cruz AD mobility, and progress strength of L hip flexor and L adductors on return from vacation, (current program is to improve IR, L ER, R AB mobility). Progress program for core/pelvic stabilization on return from trip as appropriate..
--- NOTE | 2019-04-17 17:35 | PT.OTN ---
Current Diagnoses Pain in left hip (04/17/19) Stiffness of unspecified hip, not elsewhere classified (04/17/19) Muscle weakness (generalized) (04/17/19) Pain in left leg (04/17/19) Physical Therapy Treatment Note PT-OP-A Visit Information Start: 03/31/19 12:37 Freq: Status: Active Protocol: Document 04/17/19 08:14 LRN (Rec: 04/17/19 09:03 LRN [id number]) Out-Patient Physical Therapy Visit Information Visit Information Visit Type Treatment Note Visit Start Time 08:14 Visit Stop Time 09:03 Total Visit Minutes 49 Visit Number 6 Number of TOOLS AND PARTS ATTENDANT Visits 0 Evaluation Information Evaluation Date 03/31/19 Precautions Precautions Arthritis Claire's Disease Hx of Fracture of L Big Toe. PT-OP-B Current Condition Start: 03/31/19 12:37 Freq: Status: Active Protocol: Document 03/31/19 13:34 LRN (Rec: 03/31/19 15:50 LRN [id number]) Current Condition History of Current Condition Onset Date Problematic 1 month, aching for 2 months Current Complaints L hip pain radiating into the lateral leg. 2 yrs ago started in the R hip History of Current Condition Sudden onset of pain with hiking causing change in gait. L hip pain is problematic because it hurts after she gets up, on the inital step, while in bed at night, and in the middle of a walk. Has numbness in the R leg due to an old back thing (4-5 yrs ago couldn't get up because L5 -S1 slip). Trying to keep the pain at a level of 5/10 with medications. Has had gastritis from taking too much Advil. Prior Treatments and Tests X-rays 3 days ago, found unremarkable. Future Testing and Treatments Planned None Treatment Goals Patient/Caregiver Goals Pt goal is to be stronger, gain flexibility, learn how to make hips stronger. Maximize pain relief. Prior Functional Status Baseline Function- ADL's Independent Baseline Function- Mobility Independent Baseline Function- Gait Walk up to 12 miles, once a week with achy lower back after walks Current Functional Impairments (Reported) Functional Limitations- ADL's Currently limited in how far she can walk and what she can do. Walking limited maximally to 2.5-3 miles around [facility] , requiring her to slow down 3 -4 times and to work through some of the discomfort. Functional Limitations- Recreation/ No pain with water aerobics or Hobbies afterwards excessively, pain 4-10/16. Personal Factors Other Personal Factors That May Effect Leaving 04/18-mid 06/26 (going Therapy/Recovery to [facility] and [facility]). PT-OP-C Subjective Start: 03/31/19 12:37 Freq: Status: Active Protocol: Document 04/17/19 08:14 LRN (Rec: 04/17/19 09:03 LRN [id number]) OP-PT Subjective Patient Comments Patient Comments Pain is 3/10 without sharp pain upon sitting. Leaving today on vacation, returning she thinks on 06/22/19 and has appts on return. PT-OP-G Mobility & Gait Start: 03/31/19 12:37 Freq: Status: Active Protocol: Document 03/31/19 13:34 LRN (Rec: 03/31/19 15:50 LRN [id number]) OP Gait Assessment Gait Gait Assistance Required: Independent Able to Maintain Weight Bearing Status Yes During Gait Assistive Devices Assistive Device None PT-OP-H Neuro Start: 03/31/19 12:37 Freq: Status: Active Protocol: Document 03/31/19 13:34 LRN (Rec: 03/31/19 15:50 LRN [id number]) Sensation Evaluation Comments Summary Comments Pt starts with normal sensation, but after DTR testing pt complained of numbness tingling in the lateral R LE. Deep Tendon Reflex & Clonus Assessment Deep Tendon Reflex Bilateral Achilles Deep Tendon Reflex 1+ Diminished Bilateral Patellar Deep Tendon Reflex 3+ Normal But Brisk PT-OP-J Posture/Palpation/Skin Start: 03/31/19 12:37 Freq: Status: Active Protocol: Document 03/31/19 13:34 LRN (Rec: 03/31/19 15:50 LRN [id number]) Posture Evaluation Position Standing Evaluation View All positions Comments Posture Comments Pt demonstrates a visible Dowagers Hump and increased Kyphosis and Lordosis. Standing: Deep L PSIS. Prone: ALA is posterior on R, normalizes with MICHELL. RUSSEL is posterior on L, normalizes with MICHELL. Palpation Assessment Location Hip Palpation Location Lateral hip at Grtr trochanter , TFL, IT-Band, Piriformis, Sacrum Palpation Findings Tenderness Palpation Details L lateral hip tendereness at Grtr Trochanter, TFL, IT-Band, Piriformis, Sacral border. R lateral hip tenderness at Grtr Trochanter, TFL, IT-Band, Inferior Sacral Border, Upper Gluteal Muscle. Lumbar TrP & facets: L1, L2, L3 is tender. Lumbar Spinous Process: L4-S1 is tender. PT-OP-K Range of Motion Start: 03/31/19 12:37 Freq: Status: Active Protocol: Document 04/07/19 15:06 LRN (Rec: 04/07/19 16:26 LRN [id number]) Knee Goniometric Range of Motion Knee ROM Limitations Comments Bilateral knee mobility is WNL . PT-OP-L Special Tests Start: 03/31/19 12:37 Freq: Status: Active Protocol: Document 04/07/19 15:06 LRN (Rec: 04/07/19 16:25 LRN [id number]) Special Tests Hip Special Tests Log Roll Test Test Results negative bilaterally Comments Indicates negative intra- articular hip pathology. PT-OP-M Strength Start: 03/31/19 12:37 Freq: Status: Active Protocol: Document 03/31/19 13:34 LRN (Rec: 03/31/19 15:50 LRN [id number]) Trunk Strength Trunk Manual Muscle Testing Testing Position Supine Core Stabilization Decreased core stability with manual muscle testing of hips. Pt needed v.cuing to maintain sidelie position due to weak TA. Hip Strength Hip Manual Muscle Testing Right Reason Not Measured WFL Comments Generally 5/5. Left Flexion (L2) 3 Fair Adduction 1 Trace Reason Not Measured WFL Comments Generally 5/5 except those listed above. Knee Strength Knee Manual Muscle Testing Right Reason Not Measured WFL Left Reason Not Measured WFL PT-OP-Q Treatments Start: 03/31/19 12:37 Freq: Status: Active Protocol: Document 04/17/19 08:14 LRN (Rec: 04/17/19 09:03 LRN [id number]) Therapeutic Exercises Supine Exercises TA w/BKFO Supine Exercise Name TA training to prevent L pelvic rotation Side left Reps/Minutes 8' Comments Extra time needed for training of core to maintain neutral spine. TA w/Cruz BKFO Supine Exercise Name TA w/Cruz BKFO Side left Comments Extra time needed for practice of core stab during ex. DKTC stretch Supine Exercise Name DKTC stretch Reps/Minutes 2' Bridging Supine Exercise Name Bridging Reps/Minutes 15x 1 Prone Exercises TA Prone Exercise Name TA training to keep neutral Reps/Minutes 8' Comments Extra time taken for pt awareness to prevent pelvic L rot Standing Exercises Hip flexor stretch Standing Exercise Name Standing hip flexor stretch on step Side left Equipment Used Step Reps/Minutes 2' Manual Therapy Treatment Soft Tissue Mobilization Piriformis Body Location Cruz Piriformis at sacral border Mobilization Type Strumming,Sustained Pressure Intensity/Depth Moderate Body Position Prone Comments Feet off table QL Body Location L QL Mobilization Type Sustained Pressure Intensity/Depth Moderate Body Position Prone Comments Feet off table Joint Mobilizations Sacrum Joint R SIJ Direction PA of right ALA Grade III Body Position Prone Self-Care/Home Management Treatment Education Patient Education Home Exercise Program Activities Self-Care/Home Management Activities Issued & reviewed with discussion HEP: Roll in/out with feet on wall and written I/S for progression to lift feet off wall; anterior hip stretch; pelvic rotation in prone & supine and progression from L sidelie BKFO to bilateral BKFO. PT-OP-R Modalities Start: 03/31/19 12:37 Freq: Status: Active Protocol: Document 04/03/19 11:19 LRN (Rec: 04/03/19 12:17 LRN [id number]) Hot Pack/Cold Pack Treatment Hot Pack Location Hips Patient Position Hooklying Treatment Duration (minutes) 10 Comments During hip stretching PT-OP-T Assessment and Plan Start: 03/31/19 12:37 Freq: Status: Active Protocol: Document 04/17/19 08:14 LRN (Rec: 04/17/19 09:03 LRN [id number]) Physical Therapy Assessment Goals Six Impairment Poor awareness of proper body mechanics and hip hinging techniques Short Term Goal (STG) Pt will be educated in proper hip hinging techniques with transfers and proper body mechanics for travel. STG Duration 04/16/18 (04/07/19: GOAL MET) Five Impairment Constant low back pain. Intermediate Goal (LTG) Decrease pain to intermittent in nature with pain no greater than 3-4/10 after hiking and no pain while at rest. LTG Duration 07/29/19 Four Impairment Bilateral hip pain Physics Technical Officer Goal (LTG) Maximize pain relief of bilateral hips with no sharp pain onset upon sit to stand and hiking. 04/07/19: Pt is not experiencing sharp pains, only general pain. LTG Duration 07/29/19 (04/07/19: PARTIALLY MET) Three Impairment Decreased hip mobility (IR 25 degs R, 30 degs L , ER 40 degs L, 50 degs R) Short Term Goal (STG) Pt will be independent in a self care hip flexibility ROM program STG Duration 04/16/18 (04/03/19: GOAL MET) Two Impairment Decreased core & L hip strength (flex 3/5, AD 1+/5) Short Term Goal (STG) Pt will be on and independent self care program to strengthen her L hip. STG Duration 04/16/18 (04/15/19: Progressed Light strengthening of hip AD/ flexor) Physics Technical Officer Goal (LTG) Improve L hip strength to no less than 4/5 with flexion and 3/5 with hip AD. LTG Duration 07/29/19 One Impairment Lacks appropriate HEP Physics Technical Officer Goal (LTG) Pt will be independent with a self care HEP to minimize hip and back pain and maximize pain relief. LTG Duration 07/29/19 (04/17/19: Progressing) Assessment Summary Assessment No rotation of pelvis to start . Sacrum slight L rotated with tightness of R Piriformis and less tender in L Piriformis. Pt not able to maintain pelvic neutral with BKFO ex, but improved some with training. She demonstrates tightness of L Iliopsoas with Monty Test positioning. Pt has self care program to work on until return 06/22/19. Physical Therapy Plan Frequency and Duration Frequency of Treatment 2x/Week Plan of Care Start Date 03/31/19 Plan of Care End Date 07/29/19 Next Visit Focus/Plan Next Note Type Treatment Note Next Visit Plan Recheck L hip AD/Flexor strengthen and pt ability to maintain neutral spine. Assess progress towards goal on return from vacation in ~ 2 months. Correct sacral R rotation/flexion as needed. Add to HEP: cruz AD mobility, and progress strength of L hip flexor and L adductors on return from vacation, (current program is to improve IR, L ER, R AB mobility). Progress program for core/pelvic stabilization on return from trip as appropriate.
--- NOTE | 2019-08-07 09:09 | PT-OP ANOTE ---
Per telephone conversation, pt was notified of reopening the clinic soon while following CDC guidelines. Discussed rules for social distancing, wearing of mask and hand washing, & limiting number of patients and PT?s in open areas. Pt does not feel comfortable at this time returning to physical therapy due to COVID-19 outbreak and would like to be placed on hold for another 1-2 months.
--- NOTE | 2019-08-11 15:18 | PT.OPDS ---
Current Diagnoses Pain in left hip (04/17/19) Stiffness of unspecified hip, not elsewhere classified (04/17/19) Muscle weakness (generalized) (04/17/19) Pain in left leg (04/17/19) Visit Care Team Role Provider Type Trupti Hdz PA-C Attending Provider Advanced Ec Teacher Primary Care Provider Specialty: Internal Medicine Address: [address] [place] [address], [facility] Email: [email or web address] Visit Number Visit Number 6 Discharge Summary PT-OP-B Current Condition Start: 03/31/19 12:37 Freq: Status: Active Protocol: Document 03/31/19 13:34 LRN (Rec: 03/31/19 15:50 LRN [id number]) Current Condition History of Current Condition Onset Date Problematic 1 month, aching for 2 months Current Complaints L hip pain radiating into the lateral leg. 2 yrs ago started in the R hip History of Current Condition Sudden onset of pain with hiking causing change in gait. L hip pain is problematic because it hurts after she gets up, on the inital step, while in bed at night, and in the middle of a walk. Has numbness in the R leg due to an old back thing (4-5 yrs ago couldn't get up because L5 -S1 slip). Trying to keep the pain at a level of 5/10 with medications. Has had gastritis from taking too much Advil. Prior Treatments and Tests X-rays 3 days ago, found unremarkable. Future Testing and Treatments Planned None Treatment Goals Patient/Caregiver Goals Pt goal is to be stronger, gain flexibility, learn how to make hips stronger. Maximize pain relief. Prior Functional Status Baseline Function- ADL's Independent Baseline Function- Mobility Independent Baseline Function- Gait Walk up to 12 miles, once a week with achy lower back after walks Current Functional Impairments (Reported) Functional Limitations- ADL's Currently limited in how far she can walk and what she can do. Walking limited maximally to 2.5-3 miles around [facility] , requiring her to slow down 3 -4 times and to work through some of the discomfort. Functional Limitations- Recreation/ No pain with water aerobics or Hobbies afterwards excessively, pain 4-7/10. Personal Factors Other Personal Factors That May Effect Leaving 04/18-mid 06/26 (going Therapy/Recovery to [facility] and [facility]). PT-OP-C Subjective Start: 03/31/19 12:37 Freq: Status: Active Protocol: Document 08/11/19 15:06 LRN (Rec: 08/11/19 15:18 LRN [id number]) OP-PT Subjective Patient Comments Patient Comments Per telephone conversation, the pt is aware she will need a new referral if further physical therapy is needed. PT-OP-G Mobility & Gait Start: 03/31/19 12:37 Freq: Status: Active Protocol: Document 03/31/19 13:34 LRN (Rec: 03/31/19 15:50 LRN [id number]) OP Gait Assessment Gait Gait Assistance Required: Independent Able to Maintain Weight Bearing Status Yes During Gait Assistive Devices Assistive Device None PT-OP-H Neuro Start: 03/31/19 12:37 Freq: Status: Active Protocol: Document 03/31/19 13:34 LRN (Rec: 03/31/19 15:50 LRN [id number]) Sensation Evaluation Comments Summary Comments Pt starts with normal sensation, but after DTR testing pt complained of numbness tingling in the lateral R LE. Deep Tendon Reflex & Clonus Assessment Deep Tendon Reflex Bilateral Achilles Deep Tendon Reflex 1+ Diminished Bilateral Patellar Deep Tendon Reflex 3+ Normal But Brisk PT-OP-J Posture/Palpation/Skin Start: 03/31/19 12:37 Freq: Status: Active Protocol: Document 03/31/19 13:34 LRN (Rec: 03/31/19 15:50 LRN [id number]) Posture Evaluation Position Standing Evaluation View All positions Comments Posture Comments Pt demonstrates a visible Dowagers Hump and increased Kyphosis and Lordosis. Standing: Deep L PSIS. Prone: ALA is posterior on R, normalizes with MICHELL. RUSSEL is posterior on L, normalizes with MICHELL. Palpation Assessment Location Hip Palpation Location Lateral hip at Grtr trochanter , TFL, IT-Band, Piriformis, Sacrum Palpation Findings Tenderness Palpation Details L lateral hip tendereness at Grtr Trochanter, TFL, IT-Band, Piriformis, Sacral border. R lateral hip tenderness at Grtr Trochanter, TFL, IT-Band, Inferior Sacral Border, Upper Gluteal Muscle. Lumbar TrP & facets: L1, L2, L3 is tender. Lumbar Spinous Process: L4-S1 is tender. PT-OP-K Range of Motion Start: 03/31/19 12:37 Freq: Status: Active Protocol: Document 04/07/19 15:06 LRN (Rec: 04/07/19 16:26 LRN [id number]) Knee Goniometric Range of Motion Knee ROM Limitations Comments Bilateral knee mobility is WNL . PT-OP-L Special Tests Start: 03/31/19 12:37 Freq: Status: Active Protocol: Document 04/07/19 15:06 LRN (Rec: 04/07/19 16:25 LRN [id number]) Special Tests Hip Special Tests Log Roll Test Test Results negative bilaterally Comments Indicates negative intra- articular hip pathology. PT-OP-M Strength Start: 03/31/19 12:37 Freq: Status: Active Protocol: Document 03/31/19 13:34 LRN (Rec: 03/31/19 15:50 LRN [id number]) Trunk Strength Trunk Manual Muscle Testing Testing Position Supine Core Stabilization Decreased core stability with manual muscle testing of hips. Pt needed v.cuing to maintain sidelie position due to weak TA. Hip Strength Hip Manual Muscle Testing Right Reason Not Measured WFL Comments Generally 5/5. Left Flexion (L2) 3 Fair Adduction 1 Trace Reason Not Measured WFL Comments Generally 5/5 except those listed above. Knee Strength Knee Manual Muscle Testing Right Reason Not Measured WFL Left Reason Not Measured WFL PT-OP-T Assessment and Plan Start: 03/31/19 12:37 Freq: Status: Active Protocol: Document 08/11/19 15:06 LRN (Rec: 08/11/19 15:18 LRN [id number]) Physical Therapy Assessment Goals Six Impairment Poor awareness of proper body mechanics and hip hinging techniques Short Term Goal (STG) Pt will be educated in proper hip hinging techniques with transfers and proper body mechanics for travel. (08/11/19: Pt unavailable for final assessment due to - restrictions). STG Duration 04/16/18 (04/07/19: GOAL MET) Five Impairment Constant low back pain. Exhibitions And Collections Manager Goal (LTG) Decrease pain to intermittent in nature with pain no greater than 3-4/10 after hiking and no pain while at rest. (08/11/19: Pt unavailable for final assessment due to Covid- 19 restrictions). LTG Duration 07/29/19 Four Impairment Bilateral hip pain Intermediate Goal (LTG) Maximize pain relief of bilateral hips with no sharp pain onset upon sit to stand and hiking. 04/07/19: Pt is not experiencing sharp pains, only general pain. (08/11/19: Pt unavailable for final assessment due to Covid- 19 restrictions). LTG Duration 07/29/19 (04/07/19: PARTIALLY MET) Three Impairment Decreased hip mobility (IR 25 degs R, 30 degs L , ER 40 degs L, 50 degs R) Short Term Goal (STG) Pt will be independent in a self care hip flexibility ROM program. (08/11/19: Pt unavailable for final assessment due to Covid- 19 restrictions). STG Duration 04/16/18 (04/03/19: GOAL MET) Two Impairment Decreased core & L hip strength (flex 3/5, AD 1+/5) Short Term Goal (STG) Pt will be on and independent self care program to strengthen her L hip. (08/11/19: Pt unavailable for final assessment due to Covid- 19 restrictions). STG Duration 04/16/18 (04/15/19: Progressed Light strengthening of hip AD/ flexor) Intermediate Goal (LTG) Improve L hip strength to no less than 4/5 with flexion and 3/5 with hip AD. (08/11/19: Pt unavailable for final assessment due to Covid- 19 restrictions). LTG Duration 07/29/19 One Impairment Lacks appropriate HEP Intermediate Goal (LTG) Pt will be independent with a self care HEP to minimize hip and back pain and maximize pain relief. (08/11/19: Pt unavailable for final assessment due to Covid- 19 restrictions). LTG Duration 07/29/19 (04/17/19: Progressing) Assessment Summary Assessment Pt was last seen 16 weeks ago on 04/17/19. Physical therapy was interrupted due to Covid- 19 measures. The pt was not available for further therapy. Pt would benefit from further physical therapy, but is not ready to return to therapy. She understands a new referral is needed to return to physical therapy therapy at a later time. Physical Therapy Plan Discharge Physical Therapy Discharge Comments The pt is being discharged from physical therapy at this time due to Covid-19 outbreak. The pt is not ready to return to therapy at this time . The pt understands she will need a new referral to return to therapy.
== END 2019-08-21 09:54 ==
LOC: PHYS 08:15
PROVIDERS: PCP Physician Assistant; Visit Provider Physician Assistant
DX: M79.605 Pain in left leg (principal); M25.552 Pain in left hip; M62.81 Muscle weakness (generalized); M25.659 Stiffness of unspecified hip, not elsewhere classified
CPT/HCPCS: 97110; 97140; 97162; 97535

== ENCOUNTER → 2019-10-13 10:31 | Outpatient (CLI) | payer MEDICARE, BC, SELFPAY ==
[2019-10-13 11:20] LABS: Add Manual Diff / Slide Review NO; Basophils Absolute Auto 0 /uL (0-100); Basophils Percent Auto 0.7 % (0-2); Eosinophils Absolute Auto 100 /uL (0-450); Hematocrit 44.4 % (36-46); Hemoglobin 14.9 g/dL (12.0-16.0); Lymphocytes Absolute Auto 1400 /uL (1100-4500); Lymphocytes Percent Auto 30.4 % (25-40); Mean Corpuscular HGB Conc 33.6 % (30-36); Mean Corpuscular Hemoglobin 29.3 PG (26-34); Mean Corpuscular Volume 87.1 fL (80-100); Monocytes Absolute Auto 300 /uL (0-900); Neutrophils Absolute Auto 2900 /uL (1500-7000); Neutrophils Percent Auto 60.9 % (50-75); Platelet Count 176 X10^3/uL (150-400); Red Blood Cell Count 5.09 X10^6/uL (4.0-5.2); Red Cell Distribution Width 13.1 % (11.6-14.8); White Blood Cell Count 4.8 X10^3/uL (4.5-11.0)
[2019-10-13 11:56] LABS: Alanine Aminotransferase 30 IU/L (<35); Albumin 4.6 g/dL (3.5-5.0); Albumin Globulin Ratio 1.8 (1.0-2.8); Alkaline Phosphatase 64 U/L (38-126); Aspartate Aminotransferase 37 IU/L (14-36); BUN Creatinine Ratio 39.7 (6-22); Bilirubin Total 0.6 mg/dL (0.2-1.3); Blood Urea Nitrogen 23 mg/dL (7-17); Calcium 9.8 mg/dL (8.4-10.2); Carbon Dioxide 26 mmol/L (22-32); Chloride 106 mmol/L (98-107); Cholesterol 192 mg/dL (140-199); Estimated Glomerular Filt Rate > 60.0 mL/min (>60); Globulin 2.6 g/dL (1.7-4.1); Glucose 102 mg/dL (80-110); HDL Cholesterol 37 mg/dL (40-60); HEMOLYSIS < 15 (0-50); LDL Cholesterol Calculated 133 mg/dL (<100); Potassium 4.6 mmol/L (3.4-5.1); Sodium 139 mmol/L (137-145); Total Protein 7.2 g/dL (6.3-8.2); Triglycerides 110 mg/dL (35-150)
[2019-10-13 12:40] LABS: Free T3, Triiodothyronine Free 2.69 pg/mL (2.77-5.27)
[2019-10-13 12:54] LABS: TSH w/ Reflex to FT4 3.21 uIU/mL (0.47-4.68)
== END ==
PROVIDERS: PCP Physician Assistant; Referring Provider Physician Assistant; Visit Provider Physician Assistant
DX: E03.9 Hypothyroidism, unspecified (principal); E78.5 Hyperlipidemia, unspecified; R00.2 Palpitations; R79.89 Other specified abnormal findings of blood chemistry
CPT/HCPCS: 36415; 80053; 80061; 83735; 84443; 84481; 85025

== ENCOUNTER → 2020-04-17 13:18 | Outpatient (CLI) | payer MEDICARE, BC, SELFPAY | PROVIDERS: PCP Physician Assistant; Referring Provider Physician Assistant; Visit Provider Physician Assistant | DX: Z12.31 Encounter for screening mammogram for malignant neoplasm of breast (principal); Z53.8 Procedure and treatment not carried out for other reasons ==

== ENCOUNTER → 2020-05-12 12:35 | Outpatient (CLI) | payer MEDICARE, BC, SELFPAY ==
--- NOTE | 2020-05-12 | DI.MG.S_ITS ---
BILATERAL DIGITAL DIAGNOSTIC MAMMOGRAM 3D/2D: 05/12/2020 CLINICAL: Breast pain. Comparison is made to exams dated: 04/11/2019 mammogram, 04/03/2018 mammogram, and 03/26/2017 mammogram - [facility]. There are scattered fibroglandular elements in both breasts. No significant masses, calcifications, or other findings are seen in either breast. IMPRESSION: INCOMPLETE: NEEDS ADDITIONAL IMAGING EVALUATION There is no abnormality seen in the right breast to correspond with the pain central to the nipple, however, ultrasound is recommended. This exam was interpreted at Station ID: [id number]. NOTE: For mammograms, a report in lay terms will be sent to the patient. Approximately 15% of breast malignancies will not be visualized mammographically. In the management of a palpable breast mass, a negative mammogram must not discourage biopsy of a clinically suspicious lesion. Electronically Signed By: Faisal Martinez M.D. ddp/[email or web address]:05/12/2020 13:22:52 ACR BI-RADS Category 0: Incomplete [id number]
--- NOTE | 2020-05-12 12:39 | DI.US.S_ITS ---
LIMITED ULTRASOUND OF RIGHT BREAST AND AXILLA: 05/12/2020 CLINICAL: Focal right breast pain. Comparison is made to exams dated: 05/12/2020 mammogram, 04/11/2019 mammogram, 04/03/2018 mammogram, 03/26/2017 mammogram, 09/27/2015 mammogram, and 09/25/2014 mammogram - [facility]. Color flow and real-time ultrasound of the right breast retroareolar and axilla regions were performed on the areas of interest. There are a few mildly dilated ducts in the right breast central to the nipple in the retroareolar region. Color flow imaging demonstrates that there is no vascularity present. No discrete intraductal mass identified. No discrete cystic or solid mass lesion identified in the area of pain in the central right breast. No significant abnormalities were seen sonographically in the right axilla. IMPRESSION: BENIGN There is no sonographic evidence of malignancy. The dilated ducts in the right breast are consistent with duct ectasia and appear benign. There is no abnormality seen in the right breast to correspond with the pain central to the nipple, however, clinical followup is recommended. A 1 year screening mammogram is recommended. This exam was interpreted at Station ID: [id number]. Electronically Signed By: Faisal Martinez M.D. [email or web address]/:05/12/2020 14:08:11 letter sent: Clinical Evaluation Ultrasound BI-RADS: 2 Benign
== END ==
PROVIDERS: PCP Physician Assistant; Referring Provider Physician Assistant; Visit Provider Physician Assistant
DX: R92.2 Inconclusive mammogram (principal); N64.4 Mastodynia; N60.41 Mammary duct ectasia of right breast
CPT/HCPCS: 76642; 77066; G0279

== ENCOUNTER → 2021-03-21 10:02 | Outpatient (CLI) | payer MEDICARE, BC, SELFPAY ==
[2021-03-21 11:34] LABS: COVID19 -Nasal RAPID Negative (Negative)
== END ==
PROVIDERS: PCP Physician Assistant; Visit Provider Nurse Practitioner Family
DX: Z20.822 Contact with and (suspected) exposure to COVID-19 (principal)
CPT/HCPCS: 87635; C9803

== ENCOUNTER → 2021-03-22 09:41 | Outpatient (CLI) | payer MEDICARE, BC, SELFPAY ==
--- NOTE | 2021-03-22 17:23 | DI.NM.S_ITS ---
DATE OF SERVICE: PROCEDURE: Exercise perfusion study. DATE OF STUDY: March 22, 2021 INDICATIONS: Chest pain, shortness of breath. CARDIAC STRESS: The patient underwent exercise perfusion study under the supervision of an attending staff. The patient walked on Rod protocol for 4 minutes and 15 seconds, achieved 95 percent of target heart rate and normal blood pressure response. Peak blood pressure 168/88. Baseline blood pressure 136/82. Maximum heart rate 142 beats per minute. The patient achieved 7 METs of workload and functional aerobic impairment positive 30 percent. The patient developed anginal type of chest discomfort at first stage and increased up to 4 on a scale of 1-10 at peak exercise and resolved in 3 minutes into the exercise. Baseline rhythm was sinus with some nonspecific repolarization changes. During exercise, no convincing ischemic EKG changes seen. Occasional PACs without any significant sustained arrhythmias seen. RAW DATA: Raw data mild breast shadow seen. GATED STUDY: Resting LV ejection fraction is 70 percent and stress LV ejection fraction 82 percent without any obvious wall motion abnormalities. Resting end- diastolic volume 66 mL. TID ratio 1.11, which is within normal limits. Lung/heart ratio 0.31, which is within normal limits. MYOCARDIAL PERFUSION SCAN: Stress supine, resting supine and stress prone images were compared to each other. Resting and stress supine images revealed small size, minimally decreased perfusion of distal anterior wall which got completely resolved during stress prone images, suggestive of breast tissue attenuation artifact. Stress prone images revealed normal myocardial perfusion. CONCLUSION: I will call this study a normal exercise myocardial perfusion study with evidence of breast tissue attenuation artifact which got resolved during stress prone images. Diminished exercise tolerance. Normal hemodynamic response. No convincing ischemic EKG changes seen. However, patient has typical anginal chest discomfort during exercise, which got resolved within 3 minutes in the recovery. Left ventricular function is preserved. Overall, this is not a high risk exercise perfusion study. However, in view of anginal type of chest discomfort, we will recommend further ischemic evaluation. Consider CT coronary angiogram and if there is no occlusive coronary artery disease, she may she may have cardiac syndrome, like microvascular angina. RalphJuliannh - HALEY/didi/wendy doc#: [id number]/job#: [id number] dd: 03/22/2021 16:59:00 dt: 03/22/2021 17:17:00 DICTATING MD/COPIES TO: Cata Keating MD COPIES MNE: AIDEN;
== END ==
PROVIDERS: PCP Physician Assistant; Referring Provider Physician Assistant; Visit Provider Physician Assistant
DX: R06.00 Dyspnea, unspecified (principal); R07.9 Chest pain, unspecified; R06.02 Shortness of breath
CPT/HCPCS: 78452; 93017; A9502

== ENCOUNTER 2021-11-23 09:45 | Outpatient (RCR) | payer MEDICARE, BC, SELFPAY ==
--- NOTE | 2021-08-02 17:35 | PT.OIE ---
Current Diagnoses Other specific arthropathies, not elsewhere classified, left shoulder (08/02/21) Pain in left shoulder (08/02/21) Stiffness of left shoulder, not elsewhere classified (08/02/21) Weakness (08/02/21) Visit Care Team Role Provider Type Trupti Hdz PA-C Attending Provider Non-Staff Family Provider Primary Care Provider Referring Provider Specialty: Internal Medicine Address: [address] [place] [address], [facility] Email: [email or web address] Physical Therapy Initial Evaluation PT-OP-A Visit Information Start: 08/02/21 17:07 Freq: Status: Active Protocol: Document 08/02/21 16:00 DCW (Rec: 08/02/21 17:34 [facility] [id number]) Out-Patient Physical Therapy Visit Information Visit Information Visit Type Initial Evaluation Visit Start Time 16:00 Visit Stop Time 16:45 Total Visit Minutes 45 Visit Number 1 Number of PHOTO OPTICS TECHNICIAN Visits 0 Evaluation Information Evaluation Date 08/02/21 PT-OP-B Current Condition Start: 08/02/21 17:07 Freq: Status: Active Protocol: Document 08/02/21 16:00 DCW (Rec: 08/02/21 17:34 [facility] [id number]) Current Condition History of Current Condition Onset Date 1-2 month history Current Complaints Left shoulder pain and stiffness History of Current Condition Pt is a 71 year old female presenting with a 1-2 month history of left shoulder pain with insidious onset. Pt believes she may have overused it gardening, but is unsure. Feels she has been losing ROM, and notes it is painful when she reaches back to hook her bra, when she reaches out to the side, or when she reaches overhead to get into cabinets. Notes her pain is 4-6/10 with movement, but reports no pain at rest. Pt was previously treated at this clinic 4-5 years ago for her right shoulder, and recovered very well, so she wanted to come in to get her left shoulder treated before it got too bad . Admits she is not really kept from doing anything, but she is planning a 3 month vacation in [place] in the fall , and wants to make sure her shoulder is not still bothering her. PT-OP-C Subjective Start: 08/02/21 17:07 Freq: Status: Active Protocol: Document 08/02/21 16:00 DCW (Rec: 08/02/21 17:34 DCW [id number]) OP-PT Subjective Patient Comments Patient Comments We did such a good job last time, I wanted to get this taken care of sooner rather than later. Patient Questionnaires Quick Dash- Upper Extremity Quick Dash UE Score 36.36% Quick Dash UE Impairment 20 to 39% Impaired (Score 20- 39) PT-OP-E Functional Tests Start: 08/02/21 17:34 Freq: Status: Active Protocol: Document 08/02/21 16:00 DCW (Rec: 08/02/21 17:35 DCW [id number]) Functional Tests Apley's Scratch Test Action 1- Left Posterior opposite shoulder Action 1- Right Posterior opposite shoulder Action 2- Left T2 Action 2- Right T2 Action 3- Left T8 Action 3- Right T5 PT-OP-F Manual Assessment Start: 08/02/21 17:07 Freq: Status: Active Protocol: Document 08/02/21 16:00 DCW (Rec: 08/02/21 17:34 DCW [id number]) Manual Assessments Soft Tissue Assessment Soft Tissue Mobility Assessment Moderate tone with tenderness to palpation 2/4: Pain with wincing along left upper trap, parascapulars, subscap, infraspinatus. Joint Mobility Assessment Joint Mobility Assessment Mild-moderate limitation with left scapulothoracic rhythm, tightness around scapula limiting full shoulder abduction PT-OP-K Range of Motion Start: 08/02/21 17:07 Freq: Status: Active Protocol: Document 08/02/21 16:00 DCW (Rec: 08/02/21 17:34 DCW [id number]) Shoulder Goniometric Range of Motion Shoulder Right Active Shoulder ROM WFL Yes Testing Position Sitting Flexion 180 Abduction 180 External Rotation at 0 degrees Abduction 65 Internal Rotation Behind Back (text) T5 Left Active Shoulder ROM WFL No Testing Position Sitting Flexion 140 Abduction 82 External Rotation at 0 degrees Abduction 39 Internal Rotation Behind Back (text) T8 PT-OP-L Special Tests Start: 08/02/21 17:07 Freq: Status: Active Protocol: Document 08/02/21 16:00 DCW (Rec: 08/02/21 17:34 DCW [id number]) Special Tests Shoulder Special Tests Cecilrtad's Biceps Test Results Negative Speed's Biceps Test Results Negative Lift-Off Rotator Cuff Test Results Able to lift L off, but discomfort Dunlap Maxim Impingement Test Results Negative Grind Labrum Test Results Negative Empty Can Test Results Positive Left Drop Arm Rotator Cuff Test Results Negative Biceps Load II Test Test Results Negative Belly Press Test Results Positive Left Apprehension Test Test Results Positive Left PT-OP-M Strength Start: 08/02/21 17:07 Freq: Status: Active Protocol: Document 08/02/21 16:00 DCW (Rec: 08/02/21 17:34 [facility] [id number]) Shoulder Strength Shoulder Manual Muscle Testing Right Flexion 4+ Good+ Abduction (C5) 4+ Good+ External Rotation 4+ Good+ Internal Rotation 4+ Good+ Left Flexion 4 Good Abduction (C5) 3- Fair- External Rotation 4+ Good+ Internal Rotation 4+ Good+ PT-OP-Q Treatments Start: 08/02/21 17:07 Freq: Status: Active Protocol: Document 08/02/21 16:00 DCW (Rec: 08/02/21 17:34 [facility] [id number]) Therapeutic Exercises Standing Exercises 4 Standing Exercise Name Shoulder IR Side bilateral Resistance Lv 1 3 Standing Exercise Name Shoulder ER Side bilateral Resistance Lv 1 2 Standing Exercise Name Rows Side bilateral Resistance Lv 1 1 Standing Exercise Name Shoulder Extension Side bilateral Resistance Lv 1 PT-OP-T Assessment and Plan Start: 08/02/21 17:07 Freq: Status: Active Protocol: Document 08/02/21 16:00 DC (Rec: 08/02/21 17:34 [facility] [id number]) Physical Therapy Assessment Rehab Potential Rehabilitation Potential Excellent Evaluation Complexity Number of Personal Factors/Comorbidities 1-2 Number of Body Systems Impaired 1-2 Clinical Presentation at Evaluation Stable Impairments Impairments Functional Activities, Functional Mobility,Pain,ROM, Soft Tissue Mobility,Strength, Tone Goals Three Impairment L shoulder abduction limited to 82? Sluice Tender Goal (LTG) Pt to increase left shoulder abduction to >135? in order to make it easier for her to put dishes away in her kitchen cabinets LTG Duration 10/02/21 Two Impairment Pt has difficulty hooking her bra due to left shoulder pain Long-Term Goal (LTG) Pt to report ability to don/ doff her bra with no increased shoulder pain to show improved ADL participation LTG Duration 10/02/21 One Impairment Pt does not have an appropriate home exercise program Short Term Goal (STG) Pt to be independent and compliant with an appropriate HEP STG Duration 09/01/21 Assessment Summary Assessment Pt presents with signs and symptoms consistent with referring diagnosis of left rotator cuff arthropathy. Pt has an assortment of positive tests, none strongly suggestive of a specific injury, likely overuse and inflammation of her rotator cuff, most likely involving her subscapularis or infraspinatus. Pt is limited with AROM due to pain, but if pushed, can move through mostly full ROM, except for ER . Displays some weakness overall in left, as well as increased tone in upper trap, parascapulars, subscap, and infraspinatus. Pt should benefit from skilled therapy focusing on strengthening, ROM /flexibility, and STM to decrease tone. Physical Therapy Plan Frequency and Duration Frequency of Treatment 2x/Week Duration of Treatment Two months Plan of Care Start Date 08/02/21 Plan of Care End Date 10/02/21 Therapeutic Interventions Therapeutic Interventions Home Exercise Program,Joint Mobilizations,Manual Therapy, Neuromuscular Re-education, Patient/Caregiver Education, Self-Care/Home Management,Soft Tissue Mobilization,Taping, Therapeutic Activities, Therapeutic Exercises Modalities Cold Pack/Ice Massage,Electric Stimulation,Hot Packs, Ultrasound Next Visit Focus/Plan Next Note Type Treatment Note Next Visit Plan Shoulder strengthening, P/AROM , STM
--- NOTE | 2021-08-02 17:36 | PT.OPPOC ---
Physical, Occupational & Speech Therapy At [facility] Current Diagnoses Other specific arthropathies, not elsewhere classified, left shoulder (08/02/21) Pain in left shoulder (08/02/21) Stiffness of left shoulder, not elsewhere classified (08/02/21) Weakness (08/02/21) Visit Care Team Role Provider Type Trupti Hdz PA-C Attending Provider Non-Staff Family Provider Primary Care Provider Referring Provider Specialty: Internal Medicine Address: [address] [place] [address], [facility] Email: [email or web address] Plan Of Care PT-OP-T Assessment and Plan Start: 08/02/21 17:07 Freq: Status: Active Protocol: Document 08/02/21 16:00 DCW (Rec: 08/02/21 17:34 DCW [id number]) Physical Therapy Assessment Rehab Potential Rehabilitation Potential Excellent Evaluation Complexity Number of Personal Factors/Comorbidities 1-2 Number of Body Systems Impaired 1-2 Clinical Presentation at Evaluation Stable Impairments Impairments Functional Activities, Functional Mobility,Pain,ROM, Soft Tissue Mobility,Strength, Tone Goals Three Impairment L shoulder abduction limited to 82? Intermediate Goal (LTG) Pt to increase left shoulder abduction to >135? in order to make it easier for her to put dishes away in her kitchen cabinets LTG Duration 10/02/21 Two Impairment Pt has difficulty hooking her bra due to left shoulder pain Intermediate Goal (LTG) Pt to report ability to don/ doff her bra with no increased shoulder pain to show improved ADL participation LTG Duration 10/02/21 One Impairment Pt does not have an appropriate home exercise program Short Term Goal (STG) Pt to be independent and compliant with an appropriate HEP STG Duration 09/01/21 Assessment Summary Assessment Pt presents with signs and symptoms consistent with referring diagnosis of left rotator cuff arthropathy. Pt has an assortment of positive tests, none strongly suggestive of a specific injury, likely overuse and inflammation of her rotator cuff, most likely involving her subscapularis or infraspinatus. Pt is limited with AROM due to pain, but if pushed, can move through mostly full ROM, except for ER . Displays some weakness overall in left, as well as increased tone in upper trap, parascapulars, subscap, and infraspinatus. Pt should benefit from skilled therapy focusing on strengthening, ROM /flexibility, and STM to decrease tone. Physical Therapy Plan Frequency and Duration Frequency of Treatment 2x/Week Duration of Treatment Two months Plan of Care Start Date 08/02/21 Plan of Care End Date 10/02/21 Therapeutic Interventions Therapeutic Interventions Home Exercise Program,Joint Mobilizations,Manual Therapy, Neuromuscular Re-education, Patient/Caregiver Education, Self-Care/Home Management,Soft Tissue Mobilization,Taping, Therapeutic Activities, Therapeutic Exercises Modalities Cold Pack/Ice Massage,Electric Stimulation,Hot Packs, Ultrasound Next Visit Focus/Plan Next Note Type Treatment Note Next Visit Plan Shoulder strengthening, P/AROM , STM Plan of Care Dates Plan of Care Start Date 08/02/21 Plan of Care End Date 10/02/21 Electronically Signed by: Beto Conroy, PT 08/02/21 3330 If you are in agreement with this Plan of Care, please return a signed and dated copy. I have reviewed this Plan of Care and certify that the skilled therapy services above are required to meet the patient?s needs. Physician Signature Date Printed Name and Credentials Clinical Instructor Signature Printed Name and Credentials
--- NOTE | 2021-08-04 12:00 | PT.OTN ---
Current Diagnoses Other specific arthropathies, not elsewhere classified, left shoulder (08/04/21) Pain in left shoulder (08/04/21) Stiffness of left shoulder, not elsewhere classified (08/04/21) Weakness (08/04/21) Physical Therapy Treatment Note PT-OP-A Visit Information Start: 08/02/21 17:07 Freq: Status: Active Protocol: Document 08/04/21 11:15 DCW (Rec: 08/04/21 12:00 DCW [id number]) Out-Patient Physical Therapy Visit Information Visit Information Visit Type Treatment Note Visit Start Time 11:15 Visit Stop Time 12:00 Total Visit Minutes 45 Visit Number 2 Number of DADO OPERATOR Visits 0 Evaluation Information Evaluation Date 08/02/21 PT-OP-B Current Condition Start: 08/02/21 17:07 Freq: Status: Active Protocol: Document 08/02/21 16:00 DCW (Rec: 08/02/21 17:34 DCW [id number]) Current Condition History of Current Condition Onset Date 1-2 month history Current Complaints Left shoulder pain and stiffness History of Current Condition Pt is a 71 year old female presenting with a 1-2 month history of left shoulder pain with insidious onset. Pt believes she may have overused it gardening, but is unsure. Feels she has been losing ROM, and notes it is painful when she reachs back to hook her bra, when she reaches out to the side, or when she reaches overhead to get into cabinets. Notes her pain is 4-6/10 with movement, but reports no pain at rest. Pt was previously treated at this clinic 4-5 years ago for her right shoulder, and recovered very well, so she wanted to come in to get her left shoulder treated before it got too bad . Admits she is not really kept from doing anything, but she is planning a 3 month vacation in [place] in the fall , and wants to make sure her shoulder is not still bothering her. PT-OP-C Subjective Start: 08/02/21 17:07 Freq: Status: Active Protocol: Document 08/04/21 11:15 DCW (Rec: 08/04/21 12:00 DCW [id number]) OP-PT Subjective Patient Comments Patient Comments It's a little sore today. I was out doing yard work yesterday, but I don't think that's why, I was being careful. PT-OP-E Functional Tests Start: 08/02/21 17:34 Freq: Status: Active Protocol: Document 08/02/21 16:00 DCW (Rec: 08/02/21 17:35 DCW [id number]) Functional Tests Apley's Scratch Test Action 1- Left Posterior opposite shoulder Action 1- Right Posterior opposite shoulder Action 2- Left T2 Action 2- Right T2 Action 3- Left T8 Action 3- Right T5 PT-OP-F Manual Assessment Start: 08/02/21 17:07 Freq: Status: Active Protocol: Document 08/02/21 16:00 DCW (Rec: 08/02/21 17:34 DCW [id number]) Manual Assessments Soft Tissue Assessment Soft Tissue Mobility Assessment Moderate tone with tenderness to palpation 2/4: Pain with wincing along left upper trap, parascapulars, subscap, infraspinatus. Joint Mobility Assessment Joint Mobility Assessment Mild-moderate limitation with left scapulothoracic rhythm, tightness around scapula limiting full shoulder abduction PT-OP-K Range of Motion Start: 08/02/21 17:07 Freq: Status: Active Protocol: Document 08/02/21 16:00 DCW (Rec: 08/02/21 17:34 DCW [id number]) Shoulder Goniometric Range of Motion Shoulder Right Active Shoulder ROM WFL Yes Testing Position Sitting Flexion 180 Abduction 180 External Rotation at 0 degrees Abduction 65 Internal Rotation Behind Back (text) T5 Left Active Shoulder ROM WFL No Testing Position Sitting Flexion 140 Abduction 82 External Rotation at 0 degrees Abduction 39 Internal Rotation Behind Back (text) T8 PT-OP-L Special Tests Start: 08/02/21 17:07 Freq: Status: Active Protocol: Document 08/02/21 16:00 DCW (Rec: 08/02/21 17:34 DCW [id number]) Special Tests Shoulder Special Tests Yergason's Biceps Test Results Negative Speed's Biceps Test Results Negative Lift-Off Rotator Cuff Test Results Able to lift L off, but discomfort Dunlap Maxim Impingement Test Results Negative Grind Labrum Test Results Negative Empty Can Test Results Positive Left Drop Arm Rotator Cuff Test Results Negative Biceps Load II Test Test Results Negative Belly Press Test Results Positive Left Apprehension Test Test Results Positive Left PT-OP-M Strength Start: 08/02/21 17:07 Freq: Status: Active Protocol: Document 08/02/21 16:00 DCW (Rec: 08/02/21 17:34 DCW [id number]) Shoulder Strength Shoulder Manual Muscle Testing Right Flexion 4+ Good+ Abduction (C5) 4+ Good+ External Rotation 4+ Good+ Internal Rotation 4+ Good+ Left Flexion 4 Good Abduction (C5) 3- Fair- External Rotation 4+ Good+ Internal Rotation 4+ Good+ PT-OP-Q Treatments Start: 08/02/21 17:07 Freq: Status: Active Protocol: Document 08/04/21 11:15 DCW (Rec: 08/04/21 12:00 DCW [id number]) Therapeutic Exercises Sitting Exercises 1 Sitting Exercise Name GH Flexion pulleys Side bilateral Standing Exercises 6 Standing Exercise Name Shoulder Abduction Side bilateral Resistance Lv 2 5 Standing Exercise Name Shoulder Flexion Side bilateral Resistance Lv 2 4 Standing Exercise Name Shoulder IR Side bilateral Resistance Lv 2 3 Standing Exercise Name Shoulder ER Side bilateral Resistance Lv 2 2 Standing Exercise Name Rows Side bilateral Resistance Lv 2 1 Standing Exercise Name Shoulder Extension Side bilateral Resistance Lv 2 Manual Therapy Treatment Soft Tissue Mobilization 1 Body Location L Upper Trap Mobilization Type Sustained Pressure,Trigger Point Release Intensity/Depth Moderate Joint Mobilizations 2 Joint Scapulothoracic Direction Lateral Grade III Body Position Supine 1 Joint L GH Direction Inferior Grade III Body Position Supine PT-OP-T Assessment and Plan Start: 08/02/21 17:07 Freq: Status: Active Protocol: Document 08/04/21 11:15 DCW (Rec: 08/04/21 12:00 DCW [id number]) Physical Therapy Assessment Impairments Impairments Functional Activities, Functional Mobility,Pain,ROM, Soft Tissue Mobility,Strength, Tone Goals Three Impairment L shoulder abduction limited to 82? Lard Refiner Goal (LTG) Pt to increase left shoulder abduction to >135? in order to make it easier for her to put dishes away in her kitchen cabinets LTG Duration 10/02/21 Two Impairment Pt has difficulty hooking her bra due to left shoulder pain Half-Way Goal (LTG) Pt to report ability to don/ doff her bra with no increased shoulder pain to show improved ADL participation LTG Duration 10/02/21 One Impairment Pt does not have an appropriate home exercise program Short Term Goal (STG) Pt to be independent and compliant with an appropriate HEP STG Duration 09/01/21 Assessment Summary Assessment Pt tolerated treatment well, showing some fairly significant tone in left upper trap today, but responded well to STM. Physical Therapy Plan Frequency and Duration Frequency of Treatment 2x/Week Duration of Treatment Two months Plan of Care Start Date 08/02/21 Plan of Care End Date 10/02/21 Therapeutic Interventions Therapeutic Interventions Home Exercise Program,Joint Mobilizations,Manual Therapy, Neuromuscular Re-education, Patient/Caregiver Education, Self-Care/Home Management,Soft Tissue Mobilization,Taping, Therapeutic Activities, Therapeutic Exercises Modalities Cold Pack/Ice Massage,Electric Stimulation,Hot Packs, Ultrasound Next Visit Focus/Plan Next Note Type Treatment Note Next Visit Plan Shoulder strengthening, P/AROM , STM
--- NOTE | 2021-08-08 12:01 | PT.OTN ---
Current Diagnoses Other specific arthropathies, not elsewhere classified, left shoulder (08/08/21) Pain in left shoulder (08/08/21) Stiffness of left shoulder, not elsewhere classified (08/08/21) Weakness (08/08/21) Physical Therapy Treatment Note PT-OP-A Visit Information Start: 08/02/21 17:07 Freq: Status: Active Protocol: Document 08/08/21 11:15 DCW (Rec: 08/08/21 12:01 DCW [id number]) Out-Patient Physical Therapy Visit Information Visit Information Visit Type Treatment Note Visit Start Time 11:15 Visit Stop Time 12:00 Total Visit Minutes 45 Visit Number 3 Number of WELDER JOURNEYMAN Visits 0 Evaluation Information Evaluation Date 08/02/21 PT-OP-B Current Condition Start: 08/02/21 17:07 Freq: Status: Active Protocol: Document 08/02/21 16:00 DCW (Rec: 08/02/21 17:34 DCW [id number]) Current Condition History of Current Condition Onset Date 1-2 month history Current Complaints Left shoulder pain and stiffness History of Current Condition Pt is a 71 year old female presenting with a 1-2 month history of left shoulder pain with insidious onset. Pt believes she may have overused it gardening, but is unsure. Feels she has been losing ROM, and notes it is painful when she reachs back to hook her bra, when she reaches out to the side, or when she reaches overhead to get into cabinets. Notes her pain is 4-6/10 with movement, but reports no pain at rest. Pt was previously treated at this clinic 4-5 years ago for her right shoulder, and recovered very well, so she wanted to come in to get her left shoulder treated before it got too bad . Admits she is not really kept from doing anything, but she is planning a 3 month vacation in [place] in the fall , and wants to make sure her shoulder is not still bothering her. PT-OP-C Subjective Start: 08/02/21 17:07 Freq: Status: Active Protocol: Document 08/08/21 11:15 DCW (Rec: 08/08/21 12:01 DCW [id number]) OP-PT Subjective Patient Comments Patient Comments It's the same, I still surprise myself sometimes, I forget about it and then reach for something and get the sharp pain. PT-OP-E Functional Tests Start: 08/02/21 17:34 Freq: Status: Active Protocol: Document 08/02/21 16:00 DCW (Rec: 08/02/21 17:35 DCW [id number]) Functional Tests Apley's Scratch Test Action 1- Left Posterior opposite shoulder Action 1- Right Posterior opposite shoulder Action 2- Left T2 Action 2- Right T2 Action 3- Left T8 Action 3- Right T5 PT-OP-F Manual Assessment Start: 08/02/21 17:07 Freq: Status: Active Protocol: Document 08/02/21 16:00 DCW (Rec: 08/02/21 17:34 DCW [id number]) Manual Assessments Soft Tissue Assessment Soft Tissue Mobility Assessment Moderate tone with tenderness to palpation 2/4: Pain with wincing along left upper trap, parascapulars, subscap, infraspinatus. Joint Mobility Assessment Joint Mobility Assessment Mild-moderate limitation with left scapulothoracic rhythm, tightness around scapula limiting full shoulder abduction PT-OP-K Range of Motion Start: 08/02/21 17:07 Freq: Status: Active Protocol: Document 08/02/21 16:00 DCW (Rec: 08/02/21 17:34 DCW [id number]) Shoulder Goniometric Range of Motion Shoulder Right Active Shoulder ROM WFL Yes Testing Position Sitting Flexion 180 Abduction 180 External Rotation at 0 degrees Abduction 65 Internal Rotation Behind Back (text) T5 Left Active Shoulder ROM WFL No Testing Position Sitting Flexion 140 Abduction 82 External Rotation at 0 degrees Abduction 39 Internal Rotation Behind Back (text) T8 PT-OP-L Special Tests Start: 08/02/21 17:07 Freq: Status: Active Protocol: Document 08/02/21 16:00 DCW (Rec: 08/02/21 17:34 DCW [id number]) Special Tests Shoulder Special Tests Yergason's Biceps Test Results Negative Speed's Biceps Test Results Negative Lift-Off Rotator Cuff Test Results Able to lift L off, but discomfort Dunlap Maxim Impingement Test Results Negative Grind Labrum Test Results Negative Empty Can Test Results Positive Left Drop Arm Rotator Cuff Test Results Negative Biceps Load II Test Test Results Negative Belly Press Test Results Positive Left Apprehension Test Test Results Positive Left PT-OP-M Strength Start: 08/02/21 17:07 Freq: Status: Active Protocol: Document 08/02/21 16:00 DCW (Rec: 08/02/21 17:34 DCW [id number]) Shoulder Strength Shoulder Manual Muscle Testing Right Flexion 4+ Good+ Abduction (C5) 4+ Good+ External Rotation 4+ Good+ Internal Rotation 4+ Good+ Left Flexion 4 Good Abduction (C5) 3- Fair- External Rotation 4+ Good+ Internal Rotation 4+ Good+ PT-OP-Q Treatments Start: 08/02/21 17:07 Freq: Status: Active Protocol: Document 08/08/21 11:15 DCW (Rec: 08/08/21 12:01 DCW [id number]) Cardio Equipment Upper Body Ergometer (UBE) Duration (Minutes) 5 RPM 60 Seat Position 12 Height 3.5 Therapeutic Exercises Sitting Exercises 1 Sitting Exercise Name GH Flexion pulleys Side bilateral Other Exercises 1 Other Exercise Name UE Resisted side-stepping Resistance Yellow T-loop Manual Therapy Treatment Soft Tissue Mobilization 2 Body Location L Rhomboids Mobilization Type Sustained Pressure,Trigger Point Release Intensity/Depth Moderate 1 Body Location L Upper Trap Mobilization Type Sustained Pressure,Trigger Point Release Intensity/Depth Moderate Joint Mobilizations 2 Joint Scapulothoracic Direction Lateral Grade III Body Position Supine 1 Joint L GH Direction Inferior Grade III Body Position Supine PT-OP-T Assessment and Plan Start: 08/02/21 17:07 Freq: Status: Active Protocol: Document 08/08/21 11:15 DCW (Rec: 08/08/21 12:01 DCW [id number]) Physical Therapy Assessment Impairments Impairments Functional Activities, Functional Mobility,Pain,ROM, Soft Tissue Mobility,Strength, Tone Goals Three Impairment L shoulder abduction limited to 82? Industrial Servicer Goal (LTG) Pt to increase left shoulder abduction to >135? in order to make it easier for her to put dishes away in her kitchen cabinets LTG Duration 10/02/21 Two Impairment Pt has difficulty hooking her bra due to left shoulder pain Industrial Servicer Goal (LTG) Pt to report ability to don/ doff her bra with no increased shoulder pain to show improved ADL participation LTG Duration 10/02/21 One Impairment Pt does not have an appropriate home exercise program Short Term Goal (STG) Pt to be independent and compliant with an appropriate HEP STG Duration 09/01/21 Assessment Summary Assessment Pt will be [place] of [place] for the next month, understands her HEP well, discussed getting Theracane so she can continue with STM to problem areas. Physical Therapy Plan Frequency and Duration Frequency of Treatment 2x/Week Duration of Treatment Two months Plan of Care Start Date 08/02/21 Plan of Care End Date 10/02/21 Therapeutic Interventions Therapeutic Interventions Home Exercise Program,Joint Mobilizations,Manual Therapy, Neuromuscular Re-education, Patient/Caregiver Education, Self-Care/Home Management,Soft Tissue Mobilization,Taping, Therapeutic Activities, Therapeutic Exercises Modalities Cold Pack/Ice Massage,Electric Stimulation,Hot Packs, Ultrasound Next Visit Focus/Plan Next Note Type Treatment Note Next Visit Plan Shoulder strengthening, P/AROM , STM
--- NOTE | 2021-09-07 17:34 | PT.OTN ---
Current Diagnoses Other specific arthropathies, not elsewhere classified, left shoulder (09/07/21) Pain in left shoulder (09/07/21) Stiffness of left shoulder, not elsewhere classified (09/07/21) Weakness (09/07/21) Physical Therapy Treatment Note PT-OP-A Visit Information Start: 08/02/21 17:07 Freq: Status: Active Protocol: Document 09/07/21 16:45 DCW (Rec: 09/07/21 17:34 DCW [id number]) Out-Patient Physical Therapy Visit Information Visit Information Visit Type Treatment Note Visit Start Time 16:45 Visit Stop Time 17:30 Total Visit Minutes 45 Visit Number 4 Number of VICE PRESIDENT QUALITY ASSURANCE Visits 0 Evaluation Information Evaluation Date 08/02/21 PT-OP-B Current Condition Start: 08/02/21 17:07 Freq: Status: Active Protocol: Document 08/02/21 16:00 DCW (Rec: 08/02/21 17:34 DCW [id number]) Current Condition History of Current Condition Onset Date 1-2 month history Current Complaints Left shoulder pain and stiffness History of Current Condition Pt is a 71 year old female presenting with a 1-2 month history of left shoulder pain with insidious onset. Pt believes she may have overused it gardening, but is unsure. Feels she has been losing ROM, and notes it is painful when she reachs back to hook her bra, when she reaches out to the side, or when she reaches overhead to get into cabinets. Notes her pain is 4-6/10 with movement, but reports no pain at rest. Pt was previously treated at this clinic 4-5 years ago for her right shoulder, and recovered very well, so she wanted to come in to get her left shoulder treated before it got too bad . Admits she is not really kept from doing anything, but she is planning a 3 month vacation in [place] in the fall , and wants to make sure her shoulder is not still bothering her. PT-OP-C Subjective Start: 08/02/21 17:07 Freq: Status: Active Protocol: Document 09/07/21 16:45 DCW (Rec: 09/07/21 17:34 DCW [id number]) OP-PT Subjective Patient Comments Patient Comments It's worse than when I first came, I'm having trouble getting dressed or when I'm trying to sleep. PT-OP-E Functional Tests Start: 08/02/21 17:34 Freq: Status: Active Protocol: Document 08/02/21 16:00 DCW (Rec: 08/02/21 17:35 DCW [id number]) Functional Tests Apley's Scratch Test Action 1- Left Posterior opposite shoulder Action 1- Right Posterior opposite shoulder Action 2- Left T2 Action 2- Right T2 Action 3- Left T8 Action 3- Right T5 PT-OP-F Manual Assessment Start: 08/02/21 17:07 Freq: Status: Active Protocol: Document 08/02/21 16:00 DCW (Rec: 08/02/21 17:34 DCW [id number]) Manual Assessments Soft Tissue Assessment Soft Tissue Mobility Assessment Moderate tone with tenderness to palpation 2/4: Pain with wincing along left upper trap, parascapulars, subscap, infraspinatus. Joint Mobility Assessment Joint Mobility Assessment Mild-moderate limitation with left scapulothoracic rhythm, tightness around scapula limiting full shoulder abduction PT-OP-K Range of Motion Start: 08/02/21 17:07 Freq: Status: Active Protocol: Document 08/02/21 16:00 DCW (Rec: 08/02/21 17:34 DCW [id number]) Shoulder Goniometric Range of Motion Shoulder Right Active Shoulder ROM WFL Yes Testing Position Sitting Flexion 180 Abduction 180 External Rotation at 0 degrees Abduction 65 Internal Rotation Behind Back (text) T5 Left Active Shoulder ROM WFL No Testing Position Sitting Flexion 140 Abduction 82 External Rotation at 0 degrees Abduction 39 Internal Rotation Behind Back (text) T8 PT-OP-L Special Tests Start: 08/02/21 17:07 Freq: Status: Active Protocol: Document 08/02/21 16:00 DCW (Rec: 08/02/21 17:34 DCW [id number]) Special Tests Shoulder Special Tests Yergason's Biceps Test Results Negative Speed's Biceps Test Results Negative Lift-Off Rotator Cuff Test Results Able to lift L off, but discomfort Dunlap Maxim Impingement Test Results Negative Grind Labrum Test Results Negative Empty Can Test Results Positive Left Drop Arm Rotator Cuff Test Results Negative Biceps Load II Test Test Results Negative Belly Press Test Results Positive Left Apprehension Test Test Results Positive Left PT-OP-M Strength Start: 08/02/21 17:07 Freq: Status: Active Protocol: Document 08/02/21 16:00 DCW (Rec: 08/02/21 17:34 DCW [id number]) Shoulder Strength Shoulder Manual Muscle Testing Right Flexion 4+ Good+ Abduction (C5) 4+ Good+ External Rotation 4+ Good+ Internal Rotation 4+ Good+ Left Flexion 4 Good Abduction (C5) 3- Fair- External Rotation 4+ Good+ Internal Rotation 4+ Good+ PT-OP-Q Treatments Start: 08/02/21 17:07 Freq: Status: Active Protocol: Document 09/07/21 16:45 DCW (Rec: 09/07/21 17:34 DCW [id number]) Cardio Equipment Upper Body Ergometer (UBE) Duration (Minutes) 5 RPM 60 Seat Position 12 Height 3.5 Therapeutic Exercises Sitting Exercises 1 Sitting Exercise Name GH Flexion pulleys Side bilateral Standing Exercises 6 Standing Exercise Name Shoulder Abduction Side bilateral Resistance Lv 2 Manual Therapy Treatment Soft Tissue Mobilization 2 Body Location L Rhomboids Mobilization Type Sustained Pressure,Trigger Point Release Intensity/Depth Moderate 1 Body Location L Upper Trap Mobilization Type Sustained Pressure,Trigger Point Release Intensity/Depth Moderate Joint Mobilizations 2 Joint Scapulothoracic Direction Lateral Grade III Body Position Supine 1 Joint L GH Direction Inferior Grade III Body Position Supine PT-OP-T Assessment and Plan Start: 08/02/21 17:07 Freq: Status: Active Protocol: Document 09/07/21 16:45 DCW (Rec: 09/07/21 17:34 DCW [id number]) Physical Therapy Assessment Impairments Impairments Functional Activities, Functional Mobility,Pain,ROM, Soft Tissue Mobility,Strength, Tone Goals Three Impairment L shoulder abduction limited to 82? [facility] Goal (LTG) Pt to increase left shoulder abduction to >135? in order to make it easier for her to put dishes away in her kitchen cabinets LTG Duration 10/02/21 Two Impairment Pt has difficulty hooking her bra due to left shoulder pain [facility] Goal (LTG) Pt to report ability to don/ doff her bra with no increased shoulder pain to show improved ADL participation LTG Duration 10/02/21 One Impairment Pt does not have an appropriate home exercise program Short Term Goal (STG) Pt to be independent and compliant with an appropriate HEP STG Duration 09/01/21 Assessment Summary Assessment Pt noticeably more tender to palpation and displays decreased tolerable ROM following her recent vacation. Was improved with all areas following manual treatment, pt more motivated to remain compliant with HEP after limited compliance during her trip. Physical Therapy Plan Frequency and Duration Frequency of Treatment 2x/Week Duration of Treatment Two months Plan of Care Start Date 08/02/21 Plan of Care End Date 10/02/21 Therapeutic Interventions Therapeutic Interventions Home Exercise Program,Joint Mobilizations,Manual Therapy, Neuromuscular Re-education, Patient/Caregiver Education, Self-Care/Home Management,Soft Tissue Mobilization,Taping, Therapeutic Activities, Therapeutic Exercises Modalities Cold Pack/Ice Massage,Electric Stimulation,Hot Packs, Ultrasound Next Visit Focus/Plan Next Note Type Treatment Note Next Visit Plan Shoulder strengthening, P/AROM , STM
--- NOTE | 2021-09-09 16:58 | PT.OTN ---
Current Diagnoses Other specific arthropathies, not elsewhere classified, left shoulder (09/09/21) Pain in left shoulder (09/09/21) Stiffness of left shoulder, not elsewhere classified (09/09/21) Weakness (09/09/21) Physical Therapy Treatment Note PT-OP-A Visit Information Start: 08/02/21 17:07 Freq: Status: Active Protocol: Document 09/09/21 16:00 DCW (Rec: 09/09/21 16:58 DCW [id number]) Out-Patient Physical Therapy Visit Information Visit Information Visit Type Treatment Note Visit Start Time 16:00 Visit Stop Time 16:45 Total Visit Minutes 45 Visit Number 5 Number of LEAD INSPECTOR Visits 0 Evaluation Information Evaluation Date 08/02/21 PT-OP-B Current Condition Start: 08/02/21 17:07 Freq: Status: Active Protocol: Document 08/02/21 16:00 DCW (Rec: 08/02/21 17:34 DCW [id number]) Current Condition History of Current Condition Onset Date 1-2 month history Current Complaints Left shoulder pain and stiffness History of Current Condition Pt is a 71 year old female presenting with a 1-2 month history of left shoulder pain with insidious onset. Pt believes she may have overused it gardening, but is unsure. Feels she has been losing ROM, and notes it is painful when she reachs back to hook her bra, when she reaches out to the side, or when she reaches overhead to get into cabinets. Notes her pain is 4-6/10 with movement, but reports no pain at rest. Pt was previously treated at this clinic 4-5 years ago for her right shoulder, and recovered very well, so she wanted to come in to get her left shoulder treated before it got too bad . Admits she is not really kept from doing anything, but she is planning a 3 month vacation in [place] in the fall , and wants to make sure her shoulder is not still bothering her. PT-OP-C Subjective Start: 08/02/21 17:07 Freq: Status: Active Protocol: Document 09/09/21 16:00 DCW (Rec: 09/09/21 16:58 DCW [id number]) OP-PT Subjective Patient Comments Patient Comments I felt a lot better after what you did last time, it felt really good for about 5-6 hours afterward, and I even slept quite a bit better. PT-OP-E Functional Tests Start: 08/02/21 17:34 Freq: Status: Active Protocol: Document 08/02/21 16:00 DCW (Rec: 08/02/21 17:35 DCW [id number]) Functional Tests Apley's Scratch Test Action 1- Left Posterior opposite shoulder Action 1- Right Posterior opposite shoulder Action 2- Left T2 Action 2- Right T2 Action 3- Left T8 Action 3- Right T5 PT-OP-F Manual Assessment Start: 08/02/21 17:07 Freq: Status: Active Protocol: Document 08/02/21 16:00 DCW (Rec: 08/02/21 17:34 DCW [id number]) Manual Assessments Soft Tissue Assessment Soft Tissue Mobility Assessment Moderate tone with tenderness to palpation 2/4: Pain with wincing along left upper trap, parascapulars, subscap, infraspinatus. Joint Mobility Assessment Joint Mobility Assessment Mild-moderate limitation with left scapulothoracic rhythm, tightness around scapula limiting full shoulder abduction PT-OP-K Range of Motion Start: 08/02/21 17:07 Freq: Status: Active Protocol: Document 08/02/21 16:00 DCW (Rec: 08/02/21 17:34 DCW [id number]) Shoulder Goniometric Range of Motion Shoulder Right Active Shoulder ROM WFL Yes Testing Position Sitting Flexion 180 Abduction 180 External Rotation at 0 degrees Abduction 65 Internal Rotation Behind Back (text) T5 Left Active Shoulder ROM WFL No Testing Position Sitting Flexion 140 Abduction 82 External Rotation at 0 degrees Abduction 39 Internal Rotation Behind Back (text) T8 PT-OP-L Special Tests Start: 08/02/21 17:07 Freq: Status: Active Protocol: Document 08/02/21 16:00 DCW (Rec: 08/02/21 17:34 DCW [id number]) Special Tests Shoulder Special Tests Yergason's Biceps Test Results Negative Speed's Biceps Test Results Negative Lift-Off Rotator Cuff Test Results Able to lift L off, but discomfort Dunlap Maxim Impingement Test Results Negative Grind Labrum Test Results Negative Empty Can Test Results Positive Left Drop Arm Rotator Cuff Test Results Negative Biceps Load II Test Test Results Negative Belly Press Test Results Positive Left Apprehension Test Test Results Positive Left PT-OP-M Strength Start: 08/02/21 17:07 Freq: Status: Active Protocol: Document 08/02/21 16:00 DCW (Rec: 08/02/21 17:34 DCW [id number]) Shoulder Strength Shoulder Manual Muscle Testing Right Flexion 4+ Good+ Abduction (C5) 4+ Good+ External Rotation 4+ Good+ Internal Rotation 4+ Good+ Left Flexion 4 Good Abduction (C5) 3- Fair- External Rotation 4+ Good+ Internal Rotation 4+ Good+ PT-OP-Q Treatments Start: 08/02/21 17:07 Freq: Status: Active Protocol: Document 09/09/21 16:00 DCW (Rec: 09/09/21 16:58 [facility] [id number]) Cardio Equipment Upper Body Ergometer (UBE) Duration (Minutes) 5 RPM 60 Seat Position 12 Height 3.5 Therapeutic Exercises Sitting Exercises 1 Sitting Exercise Name GH Flexion pulleys Side bilateral Standing Exercises 6 Standing Exercise Name Shoulder Abduction Side bilateral Resistance 3# 5 Standing Exercise Name Shoulder Flexion Side bilateral Resistance 3# Other Exercises 1 Other Exercise Name UE Resisted side-stepping Resistance Yellow T-loop Manual Therapy Treatment Soft Tissue Mobilization 2 Body Location L Rhomboids Mobilization Type Sustained Pressure,Trigger Point Release Intensity/Depth Moderate 1 Body Location L Upper Trap Mobilization Type Sustained Pressure,Trigger Point Release Intensity/Depth Moderate Joint Mobilizations 2 Joint Scapulothoracic Direction Lateral Grade III Body Position Supine 1 Joint L GH Direction Inferior Grade III Body Position Supine PT-OP-T Assessment and Plan Start: 08/02/21 17:07 Freq: Status: Active Protocol: Document 09/09/21 16:00 DCW (Rec: 09/09/21 16:58 [facility] [id number]) Physical Therapy Assessment Impairments Impairments Functional Activities, Functional Mobility,Pain,ROM, Soft Tissue Mobility,Strength, Tone Goals Three Impairment L shoulder abduction limited to 82? Beef Trimmer Goal (LTG) Pt to increase left shoulder abduction to >135? in order to make it easier for her to put dishes away in her kitchen cabinets LTG Duration 10/02/21 Two Impairment Pt has difficulty hooking her bra due to left shoulder pain Beef Trimmer Goal (LTG) Pt to report ability to don/ doff her bra with no increased shoulder pain to show improved ADL participation LTG Duration 10/02/21 One Impairment Pt does not have an appropriate home exercise program Short Term Goal (STG) Pt to be independent and compliant with an appropriate HEP STG Duration 09/01/21 Assessment Summary Assessment Pt moving better today, noticeable improvement in pain -free ROM, tolerated 3# dumbbells without any difficulty, planning to add to HEP. Physical Therapy Plan Frequency and Duration Frequency of Treatment 2x/Week Duration of Treatment Two months Plan of Care Start Date 08/02/21 Plan of Care End Date 10/02/21 Therapeutic Interventions Therapeutic Interventions Home Exercise Program,Joint Mobilizations,Manual Therapy, Neuromuscular Re-education, Patient/Caregiver Education, Self-Care/Home Management,Soft Tissue Mobilization,Taping, Therapeutic Activities, Therapeutic Exercises Modalities Cold Pack/Ice Massage,Electric Stimulation,Hot Packs, Ultrasound Next Visit Focus/Plan Next Note Type Treatment Note Next Visit Plan Shoulder strengthening, P/AROM , STM
--- NOTE | 2021-09-16 11:59 | PT.OTN ---
Current Diagnoses Other specific arthropathies, not elsewhere classified, left shoulder (09/16/21) Pain in left shoulder (09/16/21) Stiffness of left shoulder, not elsewhere classified (09/16/21) Weakness (09/16/21) Physical Therapy Treatment Note PT-OP-A Visit Information Start: 08/02/21 17:07 Freq: Status: Active Protocol: Document 09/16/21 11:16 DCW (Rec: 09/16/21 11:58 DCW [id number]) Out-Patient Physical Therapy Visit Information Visit Information Visit Type Treatment Note Visit Start Time 11:16 Visit Stop Time 12:00 Total Visit Minutes 44 Visit Number 6 Number of DENTAL SERVICE CHIEF Visits 0 Evaluation Information Evaluation Date 08/02/21 PT-OP-B Current Condition Start: 08/02/21 17:07 Freq: Status: Active Protocol: Document 08/02/21 16:00 DCW (Rec: 08/02/21 17:34 DCW [id number]) Current Condition History of Current Condition Onset Date 1-2 month history Current Complaints Left shoulder pain and stiffness History of Current Condition Pt is a 71 year old female presenting with a 1-2 month history of left shoulder pain with insidious onset. Pt believes she may have overused it gardening, but is unsure. Feels she has been losing ROM, and notes it is painful when she reachs back to hook her bra, when she reaches out to the side, or when she reaches overhead to get into cabinets. Notes her pain is 4-6/10 with movement, but reports no pain at rest. Pt was previously treated at this clinic 4-5 years ago for her right shoulder, and recovered very well, so she wanted to come in to get her left shoulder treated before it got too bad . Admits she is not really kept from doing anything, but she is planning a 3 month vacation in [place] in the fall , and wants to make sure her shoulder is not still bothering her. PT-OP-C Subjective Start: 08/02/21 17:07 Freq: Status: Active Protocol: Document 09/16/21 11:16 DCW (Rec: 09/16/21 11:58 DCW [id number]) OP-PT Subjective Patient Comments Patient Comments It's a little bit better. I haven't really done much since I saw you last. Notes she noticed earlier this week she seems to have lost a little mobility reaching up her back. PT-OP-E Functional Tests Start: 08/02/21 17:34 Freq: Status: Active Protocol: Document 08/02/21 16:00 DCW (Rec: 08/02/21 17:35 DCW [id number]) Functional Tests Apley's Scratch Test Action 1- Left Posterior opposite shoulder Action 1- Right Posterior opposite shoulder Action 2- Left T2 Action 2- Right T2 Action 3- Left T8 Action 3- Right T5 PT-OP-F Manual Assessment Start: 08/02/21 17:07 Freq: Status: Active Protocol: Document 08/02/21 16:00 DCW (Rec: 08/02/21 17:34 DCW [id number]) Manual Assessments Soft Tissue Assessment Soft Tissue Mobility Assessment Moderate tone with tenderness to palpation 2/4: Pain with wincing along left upper trap, parascapulars, subscap, infraspinatus. Joint Mobility Assessment Joint Mobility Assessment Mild-moderate limitation with left scapulothoracic rhythm, tightness around scapula limiting full shoulder abduction PT-OP-K Range of Motion Start: 08/02/21 17:07 Freq: Status: Active Protocol: Document 08/02/21 16:00 DCW (Rec: 08/02/21 17:34 DCW [id number]) Shoulder Goniometric Range of Motion Shoulder Right Active Shoulder ROM WFL Yes Testing Position Sitting Flexion 180 Abduction 180 External Rotation at 0 degrees Abduction 65 Internal Rotation Behind Back (text) T5 Left Active Shoulder ROM WFL No Testing Position Sitting Flexion 140 Abduction 82 External Rotation at 0 degrees Abduction 39 Internal Rotation Behind Back (text) T8 PT-OP-L Special Tests Start: 08/02/21 17:07 Freq: Status: Active Protocol: Document 08/02/21 16:00 DCW (Rec: 08/02/21 17:34 DCW [id number]) Special Tests Shoulder Special Tests Yergason's Biceps Test Results Negative Speed's Biceps Test Results Negative Lift-Off Rotator Cuff Test Results Able to lift L off, but discomfort Dunlap Maxim Impingement Test Results Negative Grind Labrum Test Results Negative Empty Can Test Results Positive Left Drop Arm Rotator Cuff Test Results Negative Biceps Load II Test Test Results Negative Belly Press Test Results Positive Left Apprehension Test Test Results Positive Left PT-OP-M Strength Start: 04/26/22 17:07 Freq: Status: Active Protocol: Document 08/02/21 16:00 DCW (Rec: 08/02/21 17:34 DCW [id number]) Shoulder Strength Shoulder Manual Muscle Testing Right Flexion 4+ Good+ Abduction (C5) 4+ Good+ External Rotation 4+ Good+ Internal Rotation 4+ Good+ Left Flexion 4 Good Abduction (C5) 3- Fair- External Rotation 4+ Good+ Internal Rotation 4+ Good+ PT-OP-Q Treatments Start: 08/02/21 17:07 Freq: Status: Active Protocol: Document 09/16/21 11:16 DCW (Rec: 09/16/21 11:58 DCW [id number]) Cardio Equipment Upper Body Ergometer (UBE) Duration (Minutes) 5 RPM 60 Seat Position 12 Height 3.5 Therapeutic Exercises Sitting Exercises 1 Sitting Exercise Name GH Flexion pulleys Side bilateral Standing Exercises 7 Standing Exercise Name Pulleys IR Side left 2 Standing Exercise Name Rows Side bilateral Resistance Lv 3 1 Standing Exercise Name Shoulder Extension Side bilateral Resistance Lv 3 Other Exercises 1 Other Exercise Name UE Resisted side-stepping Resistance Yellow T-loop Manual Therapy Treatment Soft Tissue Mobilization 2 Body Location L Rhomboids Mobilization Type Sustained Pressure,Trigger Point Release Intensity/Depth Moderate 1 Body Location L Upper Trap Mobilization Type Sustained Pressure,Trigger Point Release Intensity/Depth Moderate Joint Mobilizations 2 Joint Scapulothoracic Direction Lateral Grade III Body Position Supine 1 Joint L GH Direction Inferior Grade III Body Position Supine PT-OP-T Assessment and Plan Start: 08/02/21 17:07 Freq: Status: Active Protocol: Document 09/16/21 11:16 DCW (Rec: 09/16/21 11:58 [facility] [id number]) Physical Therapy Assessment Impairments Impairments Functional Activities, Functional Mobility,Pain,ROM, Soft Tissue Mobility,Strength, Tone Goals Three Impairment L shoulder abduction limited to 82? Low Voltage Electrician Goal (LTG) Pt to increase left shoulder abduction to >135? in order to make it easier for her to put dishes away in her kitchen cabinets LTG Duration 10/02/21 Two Impairment Pt has difficulty hooking her bra due to left shoulder pain Low Voltage Electrician Goal (LTG) Pt to report ability to don/ doff her bra with no increased shoulder pain to show improved ADL participation LTG Duration 10/02/21 One Impairment Pt does not have an appropriate home exercise program Short Term Goal (STG) Pt to be independent and compliant with an appropriate HEP STG Duration 09/01/21 Assessment Summary Assessment Pt noting some increased stiffness with internal rotation, but otherwise showing good improvement with activity tolerance and pain- free movement. Physical Therapy Plan Frequency and Duration Frequency of Treatment 2x/Week Duration of Treatment Two months Plan of Care Start Date 08/02/21 Plan of Care End Date 10/02/21 Therapeutic Interventions Therapeutic Interventions Home Exercise Program,Joint Mobilizations,Manual Therapy, Neuromuscular Re-education, Patient/Caregiver Education, Self-Care/Home Management,Soft Tissue Mobilization,Taping, Therapeutic Activities, Therapeutic Exercises Modalities Cold Pack/Ice Massage,Electric Stimulation,Hot Packs, Ultrasound Next Visit Focus/Plan Next Note Type Treatment Note Next Visit Plan Shoulder strengthening, P/AROM , STM
--- NOTE | 2021-09-19 16:46 | PT.OTN ---
Current Diagnoses Other specific arthropathies, not elsewhere classified, left shoulder (09/19/21) Pain in left shoulder (09/19/21) Stiffness of left shoulder, not elsewhere classified (09/19/21) Weakness (09/19/21) Physical Therapy Treatment Note PT-OP-A Visit Information Start: 08/02/21 17:07 Freq: Status: Active Protocol: Document 09/19/21 16:00 DCW (Rec: 09/19/21 16:46 DCW [id number]) Out-Patient Physical Therapy Visit Information Visit Information Visit Type Treatment Note Visit Start Time 16:00 Visit Stop Time 16:45 Total Visit Minutes 45 Visit Number 7 Number of MILKER MACHINE Visits 0 Evaluation Information Evaluation Date 08/02/21 PT-OP-B Current Condition Start: 08/02/21 17:07 Freq: Status: Active Protocol: Document 08/02/21 16:00 DCW (Rec: 08/02/21 17:34 DCW [id number]) Current Condition History of Current Condition Onset Date 1-2 month history Current Complaints Left shoulder pain and stiffness History of Current Condition Pt is a 71 year old female presenting with a 1-2 month history of left shoulder pain with insidious onset. Pt believes she may have overused it gardening, but is unsure. Feels she has been losing ROM, and notes it is painful when she reachs back to hook her bra, when she reaches out to the side, or when she reaches overhead to get into cabinets. Notes her pain is 4-6/10 with movement, but reports no pain at rest. Pt was previously treated at this clinic 4-5 years ago for her right shoulder, and recovered very well, so she wanted to come in to get her left shoulder treated before it got too bad . Admits she is not really kept from doing anything, but she is planning a 3 month vacation in [place] in the fall , and wants to make sure her shoulder is not still bothering her. PT-OP-C Subjective Start: 08/02/21 17:07 Freq: Status: Active Protocol: Document 09/19/21 16:00 DCW (Rec: 09/19/21 16:46 DCW [id number]) OP-PT Subjective Patient Comments Patient Comments It's doing fine, actually. It 's a lot better than last week . PT-OP-E Functional Tests Start: 08/02/21 17:34 Freq: Status: Active Protocol: Document 08/02/21 16:00 DCW (Rec: 08/02/21 17:35 DCW [id number]) Functional Tests Apley's Scratch Test Action 1- Left Posterior opposite shoulder Action 1- Right Posterior opposite shoulder Action 2- Left T2 Action 2- Right T2 Action 3- Left T8 Action 3- Right T5 PT-OP-F Manual Assessment Start: 08/02/21 17:07 Freq: Status: Active Protocol: Document 08/02/21 16:00 DCW (Rec: 08/02/21 17:34 DCW [id number]) Manual Assessments Soft Tissue Assessment Soft Tissue Mobility Assessment Moderate tone with tenderness to palpation 2/4: Pain with wincing along left upper trap, parascapulars, subscap, infraspinatus. Joint Mobility Assessment Joint Mobility Assessment Mild-moderate limitation with left scapulothoracic rhythm, tightness around scapula limiting full shoulder abduction PT-OP-K Range of Motion Start: 08/02/21 17:07 Freq: Status: Active Protocol: Document 08/02/21 16:00 DCW (Rec: 08/02/21 17:34 DCW [id number]) Shoulder Goniometric Range of Motion Shoulder Right Active Shoulder ROM WFL Yes Testing Position Sitting Flexion 180 Abduction 180 External Rotation at 0 degrees Abduction 65 Internal Rotation Behind Back (text) T5 Left Active Shoulder ROM WFL No Testing Position Sitting Flexion 140 Abduction 82 External Rotation at 0 degrees Abduction 39 Internal Rotation Behind Back (text) T8 PT-OP-L Special Tests Start: 08/02/21 17:07 Freq: Status: Active Protocol: Document 08/02/21 16:00 DCW (Rec: 08/02/21 17:34 DCW [id number]) Special Tests Shoulder Special Tests Yergason's Biceps Test Results Negative Speed's Biceps Test Results Negative Lift-Off Rotator Cuff Test Results Able to lift L off, but discomfort Dunlap Amxim Impingement Test Results Negative Grind Labrum Test Results Negative Empty Can Test Results Positive Left Drop Arm Rotator Cuff Test Results Negative Biceps Load II Test Test Results Negative Belly Press Test Results Positive Left Apprehension Test Test Results Positive Left PT-OP-M Strength Start: 08/02/21 17:07 Freq: Status: Active Protocol: Document 08/02/21 16:00 DCW (Rec: 08/02/21 17:34 [facility] [id number]) Shoulder Strength Shoulder Manual Muscle Testing Right Flexion 4+ Good+ Abduction (C5) 4+ Good+ External Rotation 4+ Good+ Internal Rotation 4+ Good+ Left Flexion 4 Good Abduction (C5) 3- Fair- External Rotation 4+ Good+ Internal Rotation 4+ Good+ PT-OP-Q Treatments Start: 08/02/21 17:07 Freq: Status: Active Protocol: Document 09/19/21 16:00 DCW (Rec: 09/19/21 16:46 [facility] [id number]) Cardio Equipment Upper Body Ergometer (UBE) Duration (Minutes) 6 RPM 60 Seat Position 12 Height 3.5 Therapeutic Exercises Sitting Exercises 1 Sitting Exercise Name GH Flexion pulleys Side bilateral Standing Exercises 7 Standing Exercise Name Pulleys IR Side left 6 Standing Exercise Name Shoulder Abduction Side left Equipment Used Ball on wall Reps/Minutes x12 Comments Isometric 5 Standing Exercise Name Shoulder Flexion Side left Equipment Used Ball on wall Reps/Minutes x12 Comments Isometric 4 Standing Exercise Name IR/ER Side left Equipment Used Ball on wall Reps/Minutes x12 each Comments Isometric Manual Therapy Treatment Soft Tissue Mobilization 2 Body Location L Rhomboids Mobilization Type Sustained Pressure,Trigger Point Release Intensity/Depth Moderate 1 Body Location L Upper Trap Mobilization Type Sustained Pressure,Trigger Point Release Intensity/Depth Moderate Joint Mobilizations 2 Joint Scapulothoracic Direction Lateral Grade III Body Position Supine 1 Joint L GH Direction Inferior Grade III Body Position Supine PT-OP-T Assessment and Plan Start: 08/02/21 17:07 Freq: Status: Active Protocol: Document 09/19/21 16:00 DCW (Rec: 09/19/21 16:46 [facility] [id number]) Physical Therapy Assessment Impairments Impairments Functional Activities, Functional Mobility,Pain,ROM, Soft Tissue Mobility,Strength, Tone Goals Three Impairment L shoulder abduction limited to 82? Senior Care Goal (LTG) Pt to increase left shoulder abduction to >135? in order to make it easier for her to put dishes away in her kitchen cabinets LTG Duration 10/02/21 Two Impairment Pt has difficulty hooking her bra due to left shoulder pain Operating Room Scheduler Goal (LTG) Pt to report ability to don/ doff her bra with no increased shoulder pain to show improved ADL participation LTG Duration 10/02/21 One Impairment Pt does not have an appropriate home exercise program Short Term Goal (STG) Pt to be independent and compliant with an appropriate HEP STG Duration 09/01/21 Assessment Summary Assessment Improved shoulder mobility today, noticeable improvement with pain-free PROM Physical Therapy Plan Frequency and Duration Frequency of Treatment 2x/Week Duration of Treatment Two months Plan of Care Start Date 08/02/21 Plan of Care End Date 10/02/21 Therapeutic Interventions Therapeutic Interventions Home Exercise Program,Joint Mobilizations,Manual Therapy, Neuromuscular Re-education, Patient/Caregiver Education, Self-Care/Home Management,Soft Tissue Mobilization,Taping, Therapeutic Activities, Therapeutic Exercises Modalities Cold Pack/Ice Massage,Electric Stimulation,Hot Packs, Ultrasound Next Visit Focus/Plan Next Note Type Progress Note Next Visit Plan Shoulder strengthening, P/AROM , STM
--- NOTE | 2021-09-21 16:46 | PT.OPPN ---
Current Diagnoses Other specific arthropathies, not elsewhere classified, left shoulder (09/21/21) Pain in left shoulder (09/21/21) Stiffness of left shoulder, not elsewhere classified (09/21/21) Weakness (09/21/21) Physical Therapy Progress Note PT-OP-A Visit Information Start: 08/02/21 17:07 Freq: Status: Active Protocol: Document 09/21/21 16:00 DCW (Rec: 09/21/21 16:46 DCW [id number]) Out-Patient Physical Therapy Visit Information Visit Information Visit Type Progress Note Visit Start Time 16:00 Visit Stop Time 16:45 Total Visit Minutes 45 Visit Number 8 Number of TELEPHONE SERVICES SALES REPRESENTATIVE Visits 0 Evaluation Information Evaluation Date 08/02/21 PT-OP-B Current Condition Start: 08/02/21 17:07 Freq: Status: Active Protocol: Document 08/02/21 16:00 DCW (Rec: 08/02/21 17:34 DCW [id number]) Current Condition History of Current Condition Onset Date 1-2 month history Current Complaints Left shoulder pain and stiffness History of Current Condition Pt is a 71 year old female presenting with a 1-2 month history of left shoulder pain with insidious onset. Pt believes she may have overused it gardening, but is unsure. Feels she has been losing ROM, and notes it is painful when she reachs back to hook her bra, when she reaches out to the side, or when she reaches overhead to get into cabinets. Notes her pain is 4-6/10 with movement, but reports no pain at rest. Pt was previously treated at this clinic 4-5 years ago for her right shoulder, and recovered very well, so she wanted to come in to get her left shoulder treated before it got too bad . Admits she is not really kept from doing anything, but she is planning a 3 month vacation in [place] in the fall , and wants to make sure her shoulder is not still bothering her. PT-OP-C Subjective Start: 08/02/21 17:07 Freq: Status: Active Protocol: Document 09/21/21 16:00 DCW (Rec: 09/21/21 16:46 DCW [id number]) OP-PT Subjective Patient Comments Patient Comments Pt notes she is feeling a little stiff today. PT-OP-E Functional Tests Start: 08/02/21 17:34 Freq: Status: Active Protocol: Document 09/21/21 16:00 DCW (Rec: 09/21/21 16:14 DCW [id number]) Functional Tests Apley's Scratch Test Action 1: The subject is instructed to touch the opposite shoulder with his/her hand. This motion checks Glenohumeral adduction, internal rotation , horizontal adduction and scapular protraction Action 2: The subject is instructed to place his/her arm overhead and reach behind the neck to touch his/her upper back. This motion checks Glenohumeral abduction, external rotation and scapular upward rotation and elevation. Action 3: The subject puts his/her hand on the lower back and reaches upward as far as possible. This motion checks glenohumeral adduction, internal rotation and scapular retraction with downward rotation Action 1- Left Posterior opposite shoulder Action 1- Right Posterior opposite shoulder Action 2- Left T2 Action 2- Right T5 Action 3- Left T8 Action 3- Right T5 PT-OP-F Manual Assessment Start: 08/02/21 17:07 Freq: Status: Active Protocol: Document 09/21/21 16:00 DCW (Rec: 09/21/21 16:14 DCW [id number]) Manual Assessments Soft Tissue Assessment Soft Tissue Mobility Assessment Mild-Moderate tone with tenderness to palpation 2/4: Pain with wincing along left upper trap, parascapulars, subscap, infraspinatus. Joint Mobility Assessment Joint Mobility Assessment Mild-moderate limitation with left scapulothoracic rhythm, tightness around scapula limiting full shoulder abduction PT-OP-K Range of Motion Start: 08/02/21 17:07 Freq: Status: Active Protocol: Document 09/21/21 16:00 DCW (Rec: 09/21/21 16:14 DCW [id number]) Shoulder Goniometric Range of Motion Shoulder Measured in Degrees Right Active Shoulder ROM WFL Yes Testing Position Sitting Flexion 180 Abduction 180 External Rotation at 0 degrees Abduction 65 Internal Rotation Behind Back (text) T5 Left Active Shoulder ROM WFL No Testing Position Sitting Flexion 137 Abduction 112 External Rotation at 0 degrees Abduction 36 Internal Rotation Behind Back (text) T8 PT-OP-L Special Tests Start: 08/02/21 17:07 Freq: Status: Active Protocol: Document 09/21/21 16:00 DCW (Rec: 09/21/21 16:14 [facility] [id number]) Special Tests Shoulder Special Tests Yergason's Biceps Test Results Negative Speed's Biceps Test Results Negative Lift-Off Rotator Cuff Test Results Able to lift L off, but discomfort Dunlap Maxim Impingement Test Results Negative Grind Labrum Test Results Negative Empty Can Test Results Positive Left Drop Arm Rotator Cuff Test Results Negative Biceps Load II Test Test Results Negative Belly Press Test Results Negative Apprehension Test Test Results Positive Left PT-OP-M Strength Start: 08/02/21 17:07 Freq: Status: Active Protocol: Document 09/21/21 16:00 DCW (Rec: 09/21/21 16:14 [facility] [id number]) Shoulder Strength Shoulder Manual Muscle Testing Right Flexion 4+ Good+ Abduction (C5) 4+ Good+ External Rotation 4+ Good+ Internal Rotation 4+ Good+ Left Flexion 4 Good Abduction (C5) 3- Fair- External Rotation 4+ Good+ Internal Rotation 4+ Good+ PT-OP-T Assessment and Plan Start: 08/02/21 17:07 Freq: Status: Active Protocol: Document 09/21/21 16:00 DCW (Rec: 09/21/21 16:46 [facility] [id number]) Physical Therapy Assessment Impairments Impairments Functional Activities, Functional Mobility,Pain,ROM, Soft Tissue Mobility,Strength, Tone Goals Three Impairment L shoulder abduction limited to 82? Nursing Home Goal (LTG) Pt to increase left shoulder abduction to >135? in order to make it easier for her to put dishes away in her kitchen cabinets LTG Duration 11/21/21 - improving Two Impairment Pt has difficulty hooking her bra due to left shoulder pain [employer] Goal (LTG) Pt to report ability to don/ doff her bra with no increased shoulder pain to show improved ADL participation LTG Duration 11/21/21 - no change One Impairment Pt does not have an appropriate home exercise program Short Term Goal (STG) Pt to be independent and compliant with an appropriate HEP STG Duration Met Assessment Summary Assessment Pt showing mild progress so far with therapy, although there have been large gaps in care due to vacations and illness. Little change in ROM so far, if pt is still not showing much progress over the next 2-3 weeks, would likely benefit from return to PCP with potential for advanced imaging. Physical Therapy Plan Frequency and Duration Frequency of Treatment 2x/Week Duration of Treatment Two months Plan of Care Start Date 09/21/21 Plan of Care End Date 11/21/21 Therapeutic Interventions Therapeutic Interventions Home Exercise Program,Joint Mobilizations,Manual Therapy, Neuromuscular Re-education, Patient/Caregiver Education, Self-Care/Home Management,Soft Tissue Mobilization,Taping, Therapeutic Activities, Therapeutic Exercises Modalities Cold Pack/Ice Massage,Electric Stimulation,Hot Packs, Ultrasound Next Visit Focus/Plan Next Note Type Treatment Note Next Visit Plan Shoulder strengthening, P/AROM , STM
--- NOTE | 2021-09-21 16:49 | PT.OPPOC ---
Physical, Occupational & Speech Therapy At [facility] Current Diagnoses Other specific arthropathies, not elsewhere classified, left shoulder (09/21/21) Pain in left shoulder (09/21/21) Stiffness of left shoulder, not elsewhere classified (09/21/21) Weakness (09/21/21) Visit Care Team Role Provider Type Trupti Hdz PA-C Attending Provider Non-Staff Family Provider Primary Care Provider Referring Provider Specialty: Internal Medicine Address: [address] [place] [address], [facility] Email: Plan Of Care PT-OP-T Assessment and Plan Start: 08/02/21 17:07 Freq: Status: Active Protocol: Document 09/21/21 16:00 DCW (Rec: 09/21/21 16:46 DCW [id number]) Physical Therapy Assessment Impairments Impairments Functional Activities, Functional Mobility,Pain,ROM, Soft Tissue Mobility,Strength, Tone Goals Three Impairment L shoulder abduction limited to 82? Fdc Goal (LTG) Pt to increase left shoulder abduction to >135? in order to make it easier for her to put dishes away in her kitchen cabinets LTG Duration 11/21/21 - improving Two Impairment Pt has difficulty hooking her bra due to left shoulder pain Correctional Nurse Goal (LTG) Pt to report ability to don/ doff her bra with no increased shoulder pain to show improved ADL participation LTG Duration 11/21/21 - no change One Impairment Pt does not have an appropriate home exercise program Short Term Goal (STG) Pt to be independent and compliant with an appropriate HEP STG Duration Met Assessment Summary Assessment Pt showing mild progress so far with therapy, although there have been large gaps in care due to vacations and illness. Little change in ROM so far, if pt is still not showing much progress over the next 2-3 weeks, would likely benefit from return to PCP with potential for advanced imaging. Physical Therapy Plan Frequency and Duration Frequency of Treatment 2x/Week Duration of Treatment Two months Plan of Care Start Date 09/21/21 Plan of Care End Date 11/21/21 Therapeutic Interventions Therapeutic Interventions Home Exercise Program,Joint Mobilizations,Manual Therapy, Neuromuscular Re-education, Patient/Caregiver Education, Self-Care/Home Management,Soft Tissue Mobilization,Taping, Therapeutic Activities, Therapeutic Exercises Modalities Cold Pack/Ice Massage,Electric Stimulation,Hot Packs, Ultrasound Next Visit Focus/Plan Next Note Type Treatment Note Next Visit Plan Shoulder strengthening, P/AROM , STM Plan of Care Dates Plan of Care Start Date 09/21/21 Plan of Care End Date 11/21/21 Electronically Signed by: Beto Conroy, PT 09/21/21 [id number] If you are in agreement with this Plan of Care, please return a signed and dated copy. I have reviewed this Plan of Care and certify that the skilled therapy services above are required to meet the patient?s needs. Physician Signature Date Printed Name and Credentials Clinical Instructor Signature Printed Name and Credentials
--- NOTE | 2021-09-28 09:00 | PT.OTN ---
Current Diagnoses Other specific arthropathies, not elsewhere classified, left shoulder (09/28/21) Pain in left shoulder (09/28/21) Stiffness of left shoulder, not elsewhere classified (09/28/21) Weakness (09/28/21) Physical Therapy Treatment Note PT-OP-A Visit Information Start: 08/02/21 17:07 Freq: Status: Active Protocol: Document 09/28/21 08:20 SP (Rec: 09/28/21 09:12 SP [id number]) Out-Patient Physical Therapy Visit Information Visit Information Visit Type Treatment Note Visit Start Time 08:20 Visit Stop Time 09:00 Total Visit Minutes 40 Visit Number 9 Number of BRIDGE IRONWORKER Visits 1 Evaluation Information Evaluation Date 08/02/21 PT-OP-B Current Condition Start: 08/02/21 17:07 Freq: Status: Active Protocol: Document 08/02/21 16:00 DCW (Rec: 08/02/21 17:34 DCW [id number]) Current Condition History of Current Condition Onset Date 1-2 month history Current Complaints Left shoulder pain and stiffness History of Current Condition Pt is a 71 year old female presenting with a 1-2 month history of left shoulder pain with insidious onset. Pt believes she may have overused it gardening, but is unsure. Feels she has been losing ROM, and notes it is painful when she reachs back to hook her bra, when she reaches out to the side, or when she reaches overhead to get into cabinets. Notes her pain is 4-6/10 with movement, but reports no pain at rest. Pt was previously treated at this clinic 4-5 years ago for her right shoulder, and recovered very well, so she wanted to come in to get her left shoulder treated before it got too bad . Admits she is not really kept from doing anything, but she is planning a 3 month vacation in [place] in the fall , and wants to make sure her shoulder is not still bothering her. PT-OP-C Subjective Start: 08/02/21 17:07 Freq: Status: Active Protocol: Document 09/28/21 08:20 SP (Rec: 09/28/21 09:12 SP [id number]) OP-PT Subjective Patient Comments Patient Comments Pt states feel LUE ROM is improving, is compliant with HEP and able do some gardening alot front motions. PT-OP-E Functional Tests Start: 08/02/21 17:34 Freq: Status: Active Protocol: Document 09/21/21 16:00 DCW (Rec: 09/21/21 16:14 DCW [id number]) Functional Tests Apley's Scratch Test Action 1- Left Posterior opposite shoulder Action 1- Right Posterior opposite shoulder Action 2- Left T2 Action 2- Right T5 Action 3- Left T8 Action 3- Right T5 PT-OP-F Manual Assessment Start: 08/02/21 17:07 Freq: Status: Active Protocol: Document 09/21/21 16:00 DCW (Rec: 09/21/21 16:14 DCW [id number]) Manual Assessments Soft Tissue Assessment Soft Tissue Mobility Assessment Mild-Moderate tone with tenderness to palpation 2/4: Pain with wincing along left upper trap, parascapulars, subscap, infraspinatus. Joint Mobility Assessment Joint Mobility Assessment Mild-moderate limitation with left scapulothoracic rhythm, tightness around scapula limiting full shoulder abduction PT-OP-K Range of Motion Start: 08/02/21 17:07 Freq: Status: Active Protocol: Document 09/21/21 16:00 DCW (Rec: 09/21/21 16:14 DCW [id number]) Shoulder Goniometric Range of Motion Shoulder Right Active Shoulder ROM WFL Yes Testing Position Sitting Flexion 180 Abduction 180 External Rotation at 0 degrees Abduction 65 Internal Rotation Behind Back (text) T5 Left Active Shoulder ROM WFL No Testing Position Sitting Flexion 137 Abduction 112 External Rotation at 0 degrees Abduction 36 Internal Rotation Behind Back (text) T8 PT-OP-L Special Tests Start: 08/02/21 17:07 Freq: Status: Active Protocol: Document 09/21/21 16:00 DCW (Rec: 09/21/21 16:14 DCW [id number]) Special Tests Shoulder Special Tests Yergason's Biceps Test Results Negative Speed's Biceps Test Results Negative Lift-Off Rotator Cuff Test Results Able to lift L off, but discomfort Dunlap Maxim Impingement Test Results Negative Grind Labrum Test Results Negative Empty Can Test Results Positive Left Drop Arm Rotator Cuff Test Results Negative Biceps Load II Test Test Results Negative Belly Press Test Results Negative Apprehension Test Test Results Positive Left PT-OP-M Strength Start: 08/02/21 17:07 Freq: Status: Active Protocol: Document 09/21/21 16:00 DCW (Rec: 09/21/21 16:14 DCW [id number]) Shoulder Strength Shoulder Manual Muscle Testing Right Flexion 4+ Good+ Abduction (C5) 4+ Good+ External Rotation 4+ Good+ Internal Rotation 4+ Good+ Left Flexion 4 Good Abduction (C5) 3- Fair- External Rotation 4+ Good+ Internal Rotation 4+ Good+ PT-OP-Q Treatments Start: 08/02/21 17:07 Freq: Status: Active Protocol: Document 09/28/21 08:20 SP (Rec: 09/28/21 09:12 SP [id number]) Cardio Equipment Upper Body Ergometer (UBE) Duration (Minutes) 6 RPM 60 Seat Position 11 Height 3.5 Other fwd, bwd 30s each Therapeutic Exercises Sitting Exercises 1 Sitting Exercise Name GH Flexion pulleys- unavailable this tx Side bilateral Standing Exercises self STMs Standing Exercise Name UT, interscap, infra sp Side left Equipment Used racquetball wall Reps/Minutes 1 min Comments good response D1 ext, D2 flexion Standing Exercise Name reviewed HEP: Side left Equipment Used D1 ext #2 TB, D2 flex AROM to wall target Reps/Minutes x10 each Comments cued no UT recruit, improved with mirror 7 Standing Exercise Name Pulleys IR- discussed- unavailable today Side left Reps/Minutes 20s x2 use of towel today Comments cued arm across opp pelvis then assist superiorly- naomi ROM next tx progres 6 Standing Exercise Name Shoulder Abduction- HEP reviewed Side bilateral Equipment Used Ball on wall Reps/Minutes 5 s hold x12 Comments Isometric 5 Standing Exercise Name Shoulder Flexion- HEP reviewed Side left Equipment Used Ball on wall Reps/Minutes x12 Comments Isometric 4 Standing Exercise Name IR/ER- HEP reviewed Side left Equipment Used Ball on wall Reps/Minutes 5 s hold x12 each Comments Isometric 3 Standing Exercise Name Shoulder ER- HEP reviewed Side bilateral Resistance Lv 2> #3 Equipment Used towel under arm Reps/Minutes x10 Comments cued scap retract stab, conc slow pacing, eccentric AAROM str 90 deg form 1 Standing Exercise Name Shoulder Extension- HEP reviewed Side bilateral Resistance Lv 3 Reps/Minutes x10 Comments cued scap retract/ depress stab PT-OP-T Assessment and Plan Start: 08/02/21 17:07 Freq: Status: Active Protocol: Document 09/28/21 08:20 SP (Rec: 09/28/21 09:12 SP [id number]) Physical Therapy Assessment Goals Three Impairment L shoulder abduction limited to 82? Personal Shopper Goal (LTG) Pt to increase left shoulder abduction to >135? in order to make it easier for her to put dishes away in her kitchen cabinets LTG Duration 11/21/21 - improving Two Impairment Pt has difficulty hooking her bra due to left shoulder pain Personal Shopper Goal (LTG) Pt to report ability to don/ doff her bra with no increased shoulder pain to show improved ADL participation LTG Duration 11/21/21 - no change One Impairment Pt does not have an appropriate home exercise program Short Term Goal (STG) Pt to be independent and compliant with an appropriate HEP STG Duration Met Assessment Summary Assessment Pt improved with D2 flexion ROM this tx, focused on HEP and provided requested HOs for form and education no UT recruitment with self corrections post use mirror. Physical Therapy Plan Frequency and Duration Frequency of Treatment 2x/Week Duration of Treatment Two months Plan of Care Start Date 09/21/21 Plan of Care End Date 11/21/21 Therapeutic Interventions Therapeutic Interventions Home Exercise Program,Joint Mobilizations,Manual Therapy, Neuromuscular Re-education, Patient/Caregiver Education, Self-Care/Home Management,Soft Tissue Mobilization,Taping, Therapeutic Activities, Therapeutic Exercises Modalities Cold Pack/Ice Massage,Electric Stimulation,Hot Packs, Ultrasound Next Visit Focus/Plan Next Note Type Treatment Note Next Visit Plan HEP review needed. recheck response to self STMs ball wall and diagonal TB/ROM added last tx. Next add: pec stretch, slow angels supine. POC: Shoulder strengthening, P /AROM, STM
--- NOTE | 2021-10-06 09:47 | PT.OTN ---
Addendum entered and electronically signed by Tatiana Castillo PTA 10/06/21 12:19: Possible prone over Tball next, has seated ball to use at home if tolerated. Original Note: Current Diagnoses Other specific arthropathies, not elsewhere classified, left shoulder (10/06/21) Pain in left shoulder (10/06/21) Stiffness of left shoulder, not elsewhere classified (10/06/21) Weakness (10/06/21) Physical Therapy Treatment Note PT-OP-A Visit Information Start: 08/02/21 17:07 Freq: Status: Active Protocol: Document 10/06/21 09:00 SP (Rec: 10/06/21 09:50 SP [id number]) Out-Patient Physical Therapy Visit Information Visit Information Visit Type Treatment Note Visit Start Time 09:00 Visit Stop Time 09:47 Total Visit Minutes 47 Visit Number 10 Number of BUSINESS TRAVEL CONSULTANT Visits 2 Evaluation Information Evaluation Date 08/02/21 PT-OP-B Current Condition Start: 08/02/21 17:07 Freq: Status: Active Protocol: Document 08/02/21 16:00 DCW (Rec: 08/02/21 17:34 DCW [id number]) Current Condition History of Current Condition Onset Date 1-2 month history Current Complaints Left shoulder pain and stiffness History of Current Condition Pt is a 71 year old female presenting with a 1-2 month history of left shoulder pain with insidious onset. Pt believes she may have overused it gardening, but is unsure. Feels she has been losing ROM, and notes it is painful when she reachs back to hook her bra, when she reaches out to the side, or when she reaches overhead to get into cabinets. Notes her pain is 4-6/10 with movement, but reports no pain at rest. Pt was previously treated at this clinic 4-5 years ago for her right shoulder, and recovered very well, so she wanted to come in to get her left shoulder treated before it got too bad . Admits she is not really kept from doing anything, but she is planning a 3 month vacation in [place] in the fall , and wants to make sure her shoulder is not still bothering her. PT-OP-C Subjective Start: 08/02/21 17:07 Freq: Status: Active Protocol: Document 10/06/21 09:00 SP (Rec: 10/06/21 09:50 SP [id number]) OP-PT Subjective Patient Comments Patient Comments Pt reported the isometric ER and D2 flexion over head touching the wall has been the most helpful and perform throughout the day feels getting stronger and gaining AROM but not fully yet. Patient Reported Progress Improving PT-OP-E Functional Tests Start: 08/02/21 17:34 Freq: Status: Active Protocol: Document 09/21/21 16:00 DCW (Rec: 09/21/21 16:14 DCW [id number]) Functional Tests Apley's Scratch Test Action 1- Left Posterior opposite shoulder Action 1- Right Posterior opposite shoulder Action 2- Left T2 Action 2- Right T5 Action 3- Left T8 Action 3- Right T5 PT-OP-F Manual Assessment Start: 08/02/21 17:07 Freq: Status: Active Protocol: Document 09/21/21 16:00 DCW (Rec: 09/21/21 16:14 DCW [id number]) Manual Assessments Soft Tissue Assessment Soft Tissue Mobility Assessment Mild-Moderate tone with tenderness to palpation 2/4: Pain with wincing along left upper trap, parascapulars, subscap, infraspinatus. Joint Mobility Assessment Joint Mobility Assessment Mild-moderate limitation with left scapulothoracic rhythm, tightness around scapula limiting full shoulder abduction PT-OP-K Range of Motion Start: 08/02/21 17:07 Freq: Status: Active Protocol: Document 10/06/21 09:00 SP (Rec: 10/06/21 09:50 SP [id number]) Shoulder Goniometric Range of Motion Shoulder Left Active Shoulder ROM WFL No Testing Position Sitting Flexion 122 Abduction 102 External Rotation at 0 degrees Abduction 34 Internal Rotation Behind Back (text) L1 Comments lacking 15 deg FF lacking 10 deg ABD lacking 2 deg ER IR decrease from T8 to L1 AROM standing: FF 152 ABD 104 ER 38 PT-OP-L Special Tests Start: 08/02/21 17:07 Freq: Status: Active Protocol: Document 09/21/21 16:00 DCW (Rec: 09/21/21 16:14 DCW [id number]) Special Tests Shoulder Special Tests Yergason's Biceps Test Results Negative Speed's Biceps Test Results Negative Lift-Off Rotator Cuff Test Results Able to lift L off, but discomfort Dunlap Maxim Impingement Test Results Negative Grind Labrum Test Results Negative Empty Can Test Results Positive Left Drop Arm Rotator Cuff Test Results Negative Biceps Load II Test Test Results Negative Belly Press Test Results Negative Apprehension Test Test Results Positive Left PT-OP-M Strength Start: 08/02/21 17:07 Freq: Status: Active Protocol: Document 09/21/21 16:00 DCW (Rec: 09/21/21 16:14 DCW [id number]) Shoulder Strength Shoulder Manual Muscle Testing Right Flexion 4+ Good+ Abduction (C5) 4+ Good+ External Rotation 4+ Good+ Internal Rotation 4+ Good+ Left Flexion 4 Good Abduction (C5) 3- Fair- External Rotation 4+ Good+ Internal Rotation 4+ Good+ PT-OP-Q Treatments Start: 08/02/21 17:07 Freq: Status: Active Protocol: Document 10/06/21 09:00 SP (Rec: 10/06/21 09:50 SP [id number]) Cardio Equipment Upper Body Ergometer (UBE) Duration (Minutes) 6 RPM 65 Seat Position 11 Height 3.5 Other fwd, bwd 30s each Therapeutic Exercises Sitting Exercises eccentric flexion, abd Sitting Exercise Name added to HEP seated/standing perferred: eccentric FF and ABD to progressROM Side left Resistance TB #3 Equipment Used chair or standing- see HO provided/ scanned in Reps/Minutes 10 reps Comments good feedback stretch, improved no UT compen seated vs cued standing 1 Sitting Exercise Name GH Flexion pulleys- DC Comments good tolerance and progressive ROM eccentric w/ TB Standing Exercises FF, ABD Standing Exercise Name reviewed HEP verbally discused end tx continue for HEP strengthening Side left Resistance #3 DB Reps/Minutes x10 Comments cued use mirror for form FF, ABD AAROM Standing Exercise Name added to HEP Side left Resistance AAROM Equipment Used corner wall support (provided HOs for recall and form gain FROM) Reps/Minutes 5 hold 10 sec Comments good feedback response stretch into normalize ROM D1 ext, D2 flexion Standing Exercise Name reviewed HEP: Side left Equipment Used D1 ext #2 TB, D2 flex AROM to wall target Reps/Minutes x10 each Comments improved no UT recruit and self corrections 7 Standing Exercise Name DC Side left Reps/Minutes 20s x2 use of towel today Comments cued arm across opp pelvis then assist superiorly- naomi ROM next tx progres 6 Standing Exercise Name DC shld ABD isometric Side bilateral Equipment Used ball wall Reps/Minutes 5 s hold x12 Comments Isometric 5 Standing Exercise Name Shoulder Flexion- HEP reviewed Side left Equipment Used Ball on wall Reps/Minutes x12 Comments Isometric 4 Standing Exercise Name IR/ER- HEP reviewed Side left Equipment Used Ball on wall Reps/Minutes 5 s hold x12 each Comments Isometric 3 Standing Exercise Name Shoulder ER- discussion continue HEP reviewed Side bilateral Resistance #3 Equipment Used towel under arm Reps/Minutes x10 Comments cued scap retract stab, conc slow pacing, eccentric AAROM str 90 deg form 1 Standing Exercise Name Shoulder Extension- discussion continue HEP reviewed Side bilateral Resistance Lv 3 Reps/Minutes x10 Comments cued scap retract/ depress stab PT-OP-T Assessment and Plan Start: 08/02/21 17:07 Freq: Status: Active Protocol: Document 10/06/21 09:00 SP (Rec: 10/06/21 09:50 SP [id number]) Physical Therapy Assessment Goals Three Impairment L shoulder abduction limited to 82? Shelter Goal (LTG) Pt to increase left shoulder abduction to >135? in order to make it easier for her to put dishes away in her kitchen cabinets LTG Duration 11/21/21 - improving Two Impairment Pt has difficulty hooking her bra due to left shoulder pain Shelter Goal (LTG) Pt to report ability to don/ doff her bra with no increased shoulder pain to show improved ADL participation LTG Duration 11/21/21 - no change One Impairment Pt does not have an appropriate home exercise program Short Term Goal (STG) Pt to be independent and compliant with an appropriate HEP STG Duration Met Progress Towards Goals Progress Towards Goals Slow Progress - Other Progress Comments LUE AROM Seated: lacking 15 deg FF lacking 10 deg ABD lacking 2 deg ER IR decrease from T8 to L1 LUE AROM standing: FF 152 ABD 104 ER 38 Assessment Summary Assessment Noted decreased AROM L shld seated measurements since eval , measured in standing as well . Tx focused on standing AAROM at wall vs eccentric TB AAROM with good feedback response both applications and pt stated will use both, provided HOs to view. She understands to continue isometric and TB at home to assist strengthening to support ROM. See measurements taken. Physical Therapy Plan Frequency and Duration Frequency of Treatment 2x/Week Duration of Treatment Two months Plan of Care Start Date 09/21/21 Plan of Care End Date 11/21/21 Therapeutic Interventions Therapeutic Interventions Home Exercise Program,Joint Mobilizations,Manual Therapy, Neuromuscular Re-education, Patient/Caregiver Education, Self-Care/Home Management,Soft Tissue Mobilization,Taping, Therapeutic Activities, Therapeutic Exercises Modalities Cold Pack/Ice Massage,Electric Stimulation,Hot Packs, Ultrasound Next Visit Focus/Plan Next Note Type Treatment Note Next Visit Plan HEP review needed TB and AAROM . Next add: pec stretch, slow angels supine. POC: Shoulder strengthening, P /AROM, STM
--- NOTE | 2021-10-19 09:00 | PT.OTN ---
Current Diagnoses Other specific arthropathies, not elsewhere classified, left shoulder (10/19/21) Pain in left shoulder (10/19/21) Stiffness of left shoulder, not elsewhere classified (10/19/21) Weakness (10/19/21) Physical Therapy Treatment Note PT-OP-A Visit Information Start: 08/02/21 17:07 Freq: Status: Active Protocol: Document 10/19/21 08:17 SP (Rec: 10/19/21 09:03 SP [id number]) Out-Patient Physical Therapy Visit Information Visit Information Visit Type Treatment Note Visit Start Time 08:17 Visit Stop Time 09:00 Total Visit Minutes 43 Visit Number 11 Number of FAMILY DINNER SERVICE SPECIALIST Visits 3 Evaluation Information Evaluation Date 08/02/21 PT-OP-B Current Condition Start: 08/02/21 17:07 Freq: Status: Active Protocol: Document 08/02/21 16:00 DCW (Rec: 08/02/21 17:34 DCW [id number]) Current Condition History of Current Condition Onset Date 1-2 month history Current Complaints Left shoulder pain and stiffness History of Current Condition Pt is a 71 year old female presenting with a 1-2 month history of left shoulder pain with insidious onset. Pt believes she may have overused it gardening, but is unsure. Feels she has been losing ROM, and notes it is painful when she reachs back to hook her bra, when she reaches out to the side, or when she reaches overhead to get into cabinets. Notes her pain is 4-6/10 with movement, but reports no pain at rest. Pt was previously treated at this clinic 4-5 years ago for her right shoulder, and recovered very well, so she wanted to come in to get her left shoulder treated before it got too bad . Admits she is not really kept from doing anything, but she is planning a 3 month vacation in [place] in the fall , and wants to make sure her shoulder is not still bothering her. PT-OP-C Subjective Start: 08/02/21 17:07 Freq: Status: Active Protocol: Document 10/19/21 08:17 SP (Rec: 10/19/21 09:03 SP [id number]) OP-PT Subjective Patient Comments Patient Comments Pt reports that she was really sore for 3 days so think did to much over head at corner wall so think will watch how much. R shld sore, thinks slept to hard on that side last night. States uses her hot tub and gains ROM post. Pt reports stil really painful when pulling weed and jerk motion when releases from ground. PT-OP-E Functional Tests Start: 08/02/21 17:34 Freq: Status: Active Protocol: Document 09/21/21 16:00 DCW (Rec: 09/21/21 16:14 DCW [id number]) Functional Tests Apley's Scratch Test Action 1- Left Posterior opposite shoulder Action 1- Right Posterior opposite shoulder Action 2- Left T2 Action 2- Right T5 Action 3- Left T8 Action 3- Right T5 PT-OP-F Manual Assessment Start: 08/02/21 17:07 Freq: Status: Active Protocol: Document 09/21/21 16:00 DCW (Rec: 09/21/21 16:14 DCW [id number]) Manual Assessments Soft Tissue Assessment Soft Tissue Mobility Assessment Mild-Moderate tone with tenderness to palpation 2/4: Pain with wincing along left upper trap, parascapulars, subscap, infraspinatus. Joint Mobility Assessment Joint Mobility Assessment Mild-moderate limitation with left scapulothoracic rhythm, tightness around scapula limiting full shoulder abduction PT-OP-K Range of Motion Start: 08/02/21 17:07 Freq: Status: Active Protocol: Document 10/19/21 08:17 SP (Rec: 10/19/21 09:03 SP [id number]) Shoulder Goniometric Range of Motion Shoulder Left Active Shoulder ROM WFL No Testing Position Sitting Flexion 131 Abduction 113 External Rotation at 0 degrees Abduction 41 Internal Rotation Behind Back (text) T12 Comments -gained 11deg deg FF -gained 11 deg ABD -gained 7 deg ER -gained 1 more vertebral sigment to T12, still lacking from T8 at eval. AROM standing: FF 152 ABD 104 ER 38 AROM standing: FF 152> 131 -decrease 19 deg ABD 104>120 deg ER 38> 51 deg PT-OP-L Special Tests Start: 08/02/21 17:07 Freq: Status: Active Protocol: Document 09/21/21 16:00 DCW (Rec: 09/21/21 16:14 DCW [id number]) Special Tests Shoulder Special Tests Han's Biceps Test Results Negative Speed's Biceps Test Results Negative Lift-Off Rotator Cuff Test Results Able to lift L off, but discomfort Dunlap Maxim Impingement Test Results Negative Grind Labrum Test Results Negative Empty Can Test Results Positive Left Drop Arm Rotator Cuff Test Results Negative Biceps Load II Test Test Results Negative Belly Press Test Results Negative Apprehension Test Test Results Positive Left PT-OP-M Strength Start: 08/02/21 17:07 Freq: Status: Active Protocol: Document 09/21/21 16:00 DCW (Rec: 09/21/21 16:14 DCW [id number]) Shoulder Strength Shoulder Manual Muscle Testing Right Flexion 4+ Good+ Abduction (C5) 4+ Good+ External Rotation 4+ Good+ Internal Rotation 4+ Good+ Left Flexion 4 Good Abduction (C5) 3- Fair- External Rotation 4+ Good+ Internal Rotation 4+ Good+ PT-OP-Q Treatments Start: 08/02/21 17:07 Freq: Status: Active Protocol: Document 10/19/21 08:17 SP (Rec: 10/19/21 09:03 SP [id number]) Cardio Equipment Upper Body Ergometer (UBE) Duration (Minutes) 6 RPM 65 Seat Position 10 Height 3.5 Other fwd, bkwd 30s each Therapeutic Exercises Supine Exercises pec stretch Supine Exercise Name added to HEP- various angles Side bilateral Equipment Used over foam roller Reps/Minutes 10 sec hold x10 Comments cued TA awareness so no LB arch FF, ABD, snow angels Supine Exercise Name added to HEP Side bilateral Resistance AROM> #1 DB LUE, 2-3# DB RUE assist ROM after pec stretching Equipment Used over foam roller Reps/Minutes x10 each Comments cued no UT recruitment Sitting Exercises eccentric flexion, abd Sitting Exercise Name Reviewed eccentric FF and ABD to progressROM Side left Resistance TB #3 Equipment Used chair or standing- see HO provided/ scanned in Reps/Minutes 10 reps Comments good feedback stretch, improved no UT compen seated vs cued standing Standing Exercises FF, ABD Standing Exercise Name HEP reviewed Side left Resistance #3>#2>#1> AROM DB Equipment Used Used mirror for form Reps/Minutes x10 D1 ext, D2 flexion Standing Exercise Name reviewed HEP: Side left Equipment Used D1 ext #2 TB, D2 flex AROM to wall target Reps/Minutes x10 each Comments improved no UT recruit and self corrections 3 Standing Exercise Name Shoulder ER- HEP reviewed Side bilateral Resistance #3 Equipment Used towel under arm Reps/Minutes x10 Comments cued scap retract stab, conc slow pacing, eccentric AAROM str 90 deg form 1 Standing Exercise Name Shoulder Extension- HEP reviewed Side bilateral Resistance Lv 3 Reps/Minutes x10 Comments cued scap retract/ depress stab PT-OP-T Assessment and Plan Start: 08/02/21 17:07 Freq: Status: Active Protocol: Document 10/19/21 08:17 SP (Rec: 10/19/21 09:03 SP [id number]) Physical Therapy Assessment Goals Three Impairment L shoulder abduction limited to 82? Halfway Goal (LTG) Pt to increase left shoulder abduction to >135? in order to make it easier for her to put dishes away in her kitchen cabinets LTG Duration 11/21/21 - improving Two Impairment Pt has difficulty hooking her bra due to left shoulder pain Halfway Goal (LTG) Pt to report ability to don/ doff her bra with no increased shoulder pain to show improved ADL participation 10/19/21: still unable to fasten bra behind back and don jacket. LTG Duration 11/21/21 - no change One Impairment Pt does not have an appropriate home exercise program Short Term Goal (STG) Pt to be independent and compliant with an appropriate HEP STG Duration Met Progress Towards Goals Progress Towards Goals Progressing Toward Goals Progress Comments LUE ROM seated -gained 11deg deg FF -gained 11 deg ABD -gained 7 deg ER -gained 1 more vertebral sigment to T12, still lacking from T8 at eval. AROM standing: FF 152> 131 -decrease 19 deg ABD 104>120 deg ER 38> 51 deg Assessment Summary Assessment Pt improved in AROM, tx focused on HEP review with no adverse affects. Initiated use of foam roller has hole and half at home to incorporated ROM with good feedback results using gravity. Pt finds eccentric flexion w/ TB standing helpful in assisting ROM. Continues to be limited end range FF, ABD, ER, IR but continues to make gains. Physical Therapy Plan Frequency and Duration Frequency of Treatment 2x/Week Duration of Treatment Two months Plan of Care Start Date 09/21/21 Plan of Care End Date 11/21/21 Therapeutic Interventions Therapeutic Interventions Home Exercise Program,Joint Mobilizations,Manual Therapy, Neuromuscular Re-education, Patient/Caregiver Education, Self-Care/Home Management,Soft Tissue Mobilization,Taping, Therapeutic Activities, Therapeutic Exercises Modalities Cold Pack/Ice Massage,Electric Stimulation,Hot Packs, Ultrasound Next Visit Focus/Plan Next Note Type Treatment Note Next Visit Plan Recheck use of foam roller with AROM and HEP review. Amber FF, ABD, ER L shld. POC: Shoulder strengthening, P /AROM, STM
--- NOTE | 2021-10-26 15:52 | PT.OTN ---
Current Diagnoses Other specific arthropathies, not elsewhere classified, left shoulder (10/26/21) Pain in left shoulder (10/26/21) Stiffness of left shoulder, not elsewhere classified (10/26/21) Weakness (10/26/21) Physical Therapy Treatment Note PT-OP-A Visit Information Start: 08/02/21 17:07 Freq: Status: Active Protocol: Document 10/26/21 08:58 AMB (Rec: 10/26/21 09:48 AMB [id number]) Out-Patient Physical Therapy Visit Information Visit Information Visit Type Treatment Note Visit Start Time 09:00 Visit Stop Time 09:45 Total Visit Minutes 45 Visit Number 12 Number of CONCRETE RUBBER Visits 0 PT-OP-B Current Condition Start: 08/02/21 17:07 Freq: Status: Active Protocol: Document 08/02/21 16:00 DCW (Rec: 08/02/21 17:34 DCW [id number]) Current Condition History of Current Condition Onset Date 1-2 month history Current Complaints Left shoulder pain and stiffness History of Current Condition Pt is a 71 year old female presenting with a 1-2 month history of left shoulder pain with insidious onset. Pt believes she may have overused it gardening, but is unsure. Feels she has been losing ROM, and notes it is painful when she reachs back to hook her bra, when she reaches out to the side, or when she reaches overhead to get into cabinets. Notes her pain is 4-6/10 with movement, but reports no pain at rest. Pt was previously treated at this clinic 4-5 years ago for her right shoulder, and recovered very well, so she wanted to come in to get her left shoulder treated before it got too bad . Admits she is not really kept from doing anything, but she is planning a 3 month vacation in [place] in the fall , and wants to make sure her shoulder is not still bothering her. PT-OP-C Subjective Start: 08/02/21 17:07 Freq: Status: Active Protocol: Document 10/26/21 08:58 AMB (Rec: 10/26/21 09:48 AMB [id number]) OP-PT Subjective Patient Comments Patient Comments Pt reports soreness continues at end range. Consistent with HEP. PT-OP-E Functional Tests Start: 08/02/21 17:34 Freq: Status: Active Protocol: Document 09/21/21 16:00 DCW (Rec: 09/21/21 16:14 DCW [id number]) Functional Tests Apley's Scratch Test Action 1- Left Posterior opposite shoulder Action 1- Right Posterior opposite shoulder Action 2- Left T2 Action 2- Right T5 Action 3- Left T8 Action 3- Right T5 PT-OP-F Manual Assessment Start: 08/02/21 17:07 Freq: Status: Active Protocol: Document 09/21/21 16:00 DCW (Rec: 09/21/21 16:14 DCW [id number]) Manual Assessments Soft Tissue Assessment Soft Tissue Mobility Assessment Mild-Moderate tone with tenderness to palpation 2/4: Pain with wincing along left upper trap, parascapulars, subscap, infraspinatus. Joint Mobility Assessment Joint Mobility Assessment Mild-moderate limitation with left scapulothoracic rhythm, tightness around scapula limiting full shoulder abduction PT-OP-K Range of Motion Start: 08/02/21 17:07 Freq: Status: Active Protocol: Document 10/19/21 08:17 SP (Rec: 10/19/21 09:03 SP [id number]) Shoulder Goniometric Range of Motion Shoulder Left Active Shoulder ROM WFL No Testing Position Sitting Flexion 131 Abduction 113 External Rotation at 0 degrees Abduction 41 Internal Rotation Behind Back (text) T12 Comments -gained 11deg deg FF -gained 11 deg ABD -gained 7 deg ER -gained 1 more vertebral sigment to T12, still lacking from T8 at eval. AROM standing: FF 152 ABD 104 ER 38 AROM standing: FF 152> 131 -decrease 19 deg ABD 104>120 deg ER 38> 51 deg PT-OP-L Special Tests Start: 08/02/21 17:07 Freq: Status: Active Protocol: Document 09/21/21 16:00 DCW (Rec: 09/21/21 16:14 DCW [id number]) Special Tests Shoulder Special Tests Yergason's Biceps Test Results Negative Speed's Biceps Test Results Negative Lift-Off Rotator Cuff Test Results Able to lift L off, but discomfort Dunlap Maxim Impingement Test Results Negative Grind Labrum Test Results Negative Empty Can Test Results Positive Left Drop Arm Rotator Cuff Test Results Negative Biceps Load II Test Test Results Negative Belly Press Test Results Negative Apprehension Test Test Results Positive Left PT-OP-M Strength Start: 08/02/21 17:07 Freq: Status: Active Protocol: Document 09/21/21 16:00 DCW (Rec: 09/21/21 16:14 DCW [id number]) Shoulder Strength Shoulder Manual Muscle Testing Right Flexion 4+ Good+ Abduction (C5) 4+ Good+ External Rotation 4+ Good+ Internal Rotation 4+ Good+ Left Flexion 4 Good Abduction (C5) 3- Fair- External Rotation 4+ Good+ Internal Rotation 4+ Good+ PT-OP-Q Treatments Start: 08/02/21 17:07 Freq: Status: Active Protocol: Document 10/26/21 08:58 AMB (Rec: 10/26/21 09:48 AMB [id number]) Cardio Equipment Upper Body Ergometer (UBE) Duration (Minutes) 6 RPM 65 Seat Position 10 Height 3.5 Other fwd, bkwd 30s each Therapeutic Exercises Supine Exercises PROM Supine Exercise Name flexion, scaption Reps/Minutes 2 min ea pec stretch Supine Exercise Name added to HEP- various angles Side bilateral Equipment Used over foam roller Reps/Minutes 10 sec hold x10 Comments cued TA awareness so no LB arch FF, ABD, snow angels Supine Exercise Name added to HEP Side bilateral Resistance AROM> #1 DB LUE, 2-3# DB RUE assist ROM after pec stretching Equipment Used over foam roller Reps/Minutes x10 each Comments cued no UT recruitment Sidelying Exercises sleeper stretch Sidelying Exercise Name HEP Reps/Minutes 30x2 Comments gentle Standing Exercises FF, ABD Standing Exercise Name HEP reviewed Side left Resistance #1> AROM DB Equipment Used Used mirror for form Reps/Minutes x10 3 Standing Exercise Name Shoulder ER- HEP reviewed Side bilateral Resistance #3 Equipment Used towel under arm Reps/Minutes x10 Comments cued scap retract stab, conc slow pacing, eccentric AAROM str 90 deg form 1 Standing Exercise Name Shoulder Extension- HEP reviewed Side bilateral Resistance Lv 3 Reps/Minutes x10 Comments cued scap retract/ depress stab PT-OP-T Assessment and Plan Start: 08/02/21 17:07 Freq: Status: Active Protocol: Document 10/26/21 08:58 AMB (Rec: 10/26/21 09:48 AMB [id number]) Physical Therapy Assessment Goals Three Impairment L shoulder abduction limited to 82? Usp Goal (LTG) Pt to increase left shoulder abduction to >135? in order to make it easier for her to put dishes away in her kitchen cabinets LTG Duration 11/21/21 - improving Two Impairment Pt has difficulty hooking her bra due to left shoulder pain Extractor Operator Helper Goal (LTG) Pt to report ability to don/ doff her bra with no increased shoulder pain to show improved ADL participation 10/19/21: still unable to fasten bra behind back and don jacket. LTG Duration 11/21/21 - no change One Impairment Pt does not have an appropriate home exercise program Short Term Goal (STG) Pt to be independent and compliant with an appropriate HEP STG Duration Met Assessment Summary Assessment Pt continues to have pain with internal rotation, discussed this is common at this point in healing, but can gently add in sleeper stretch. Pt going to be on vacation and encouraged her to take t band with her. Physical Therapy Plan Next Visit Focus/Plan Next Note Type Treatment Note Next Visit Plan Recheck use of foam roller with AROM and HEP review. Amber FF, ABD, ER L shld. POC: Shoulder strengthening, P /AROM, STM
--- NOTE | 2021-11-14 12:43 | PT.OTN ---
Current Diagnoses Other specific arthropathies, not elsewhere classified, left shoulder (11/14/21) Pain in left shoulder (11/14/21) Stiffness of left shoulder, not elsewhere classified (11/14/21) Weakness (11/14/21) Physical Therapy Treatment Note PT-OP-A Visit Information Start: 08/02/21 17:07 Freq: Status: Active Protocol: Document 11/14/21 12:00 DCW (Rec: 11/14/21 12:43 DCW [id number]) Out-Patient Physical Therapy Visit Information Visit Information Visit Type Treatment Note Visit Start Time 12:00 Visit Stop Time 12:45 Total Visit Minutes 45 Visit Number 13 Number of FOLDER TAPER OPERATOR Visits 0 Evaluation Information Evaluation Date 08/02/21 PT-OP-B Current Condition Start: 08/02/21 17:07 Freq: Status: Active Protocol: Document 08/02/21 16:00 DCW (Rec: 08/02/21 17:34 DCW [id number]) Current Condition History of Current Condition Onset Date 1-2 month history Current Complaints Left shoulder pain and stiffness History of Current Condition Pt is a 71 year old female presenting with a 1-2 month history of left shoulder pain with insidious onset. Pt believes she may have overused it gardening, but is unsure. Feels she has been losing ROM, and notes it is painful when she reachs back to hook her bra, when she reaches out to the side, or when she reaches overhead to get into cabinets. Notes her pain is 4-6/10 with movement, but reports no pain at rest. Pt was previously treated at this clinic 4-5 years ago for her right shoulder, and recovered very well, so she wanted to come in to get her left shoulder treated before it got too bad . Admits she is not really kept from doing anything, but she is planning a 3 month vacation in [place] in the fall , and wants to make sure her shoulder is not still bothering her. PT-OP-C Subjective Start: 08/02/21 17:07 Freq: Status: Active Protocol: Document 11/14/21 12:00 DCW (Rec: 11/14/21 12:43 DCW [id number]) OP-PT Subjective Patient Comments Patient Comments We're leaving in a couple weeks for three months, so I'm really hoping for a list of ' must do' exercises while I'm away. PT-OP-E Functional Tests Start: 08/02/21 17:34 Freq: Status: Active Protocol: Document 09/21/21 16:00 DCW (Rec: 09/21/21 16:14 DCW [id number]) Functional Tests Apley's Scratch Test Action 1- Left Posterior opposite shoulder Action 1- Right Posterior opposite shoulder Action 2- Left T2 Action 2- Right T5 Action 3- Left T8 Action 3- Right T5 PT-OP-F Manual Assessment Start: 08/02/21 17:07 Freq: Status: Active Protocol: Document 09/21/21 16:00 DCW (Rec: 09/21/21 16:14 DCW [id number]) Manual Assessments Soft Tissue Assessment Soft Tissue Mobility Assessment Mild-Moderate tone with tenderness to palpation 2/4: Pain with wincing along left upper trap, parascapulars, subscap, infraspinatus. Joint Mobility Assessment Joint Mobility Assessment Mild-moderate limitation with left scapulothoracic rhythm, tightness around scapula limiting full shoulder abduction PT-OP-K Range of Motion Start: 08/02/21 17:07 Freq: Status: Active Protocol: Document 10/19/21 08:17 SP (Rec: 10/19/21 09:03 SP [id number]) Shoulder Goniometric Range of Motion Shoulder Left Active Shoulder ROM WFL No Testing Position Sitting Flexion 131 Abduction 113 External Rotation at 0 degrees Abduction 41 Internal Rotation Behind Back (text) T12 Comments -gained 11deg deg FF -gained 11 deg ABD -gained 7 deg ER -gained 1 more vertebral sigment to T12, still lacking from T8 at eval. AROM standing: FF 152 ABD 104 ER 38 AROM standing: FF 152> 131 -decrease 19 deg ABD 104>120 deg ER 38> 51 deg PT-OP-L Special Tests Start: 08/02/21 17:07 Freq: Status: Active Protocol: Document 09/21/21 16:00 DCW (Rec: 09/21/21 16:14 DCW [id number]) Special Tests Shoulder Special Tests Yertad's Biceps Test Results Negative Speed's Biceps Test Results Negative Lift-Off Rotator Cuff Test Results Able to lift L off, but discomfort Dunlap Maxim Impingement Test Results Negative Grind Labrum Test Results Negative Empty Can Test Results Positive Left Drop Arm Rotator Cuff Test Results Negative Biceps Load II Test Test Results Negative Belly Press Test Results Negative Apprehension Test Test Results Positive Left PT-OP-M Strength Start: 08/02/21 17:07 Freq: Status: Active Protocol: Document 09/21/21 16:00 DCW (Rec: 09/21/21 16:14 DCW [id number]) Shoulder Strength Shoulder Manual Muscle Testing Right Flexion 4+ Good+ Abduction (C5) 4+ Good+ External Rotation 4+ Good+ Internal Rotation 4+ Good+ Left Flexion 4 Good Abduction (C5) 3- Fair- External Rotation 4+ Good+ Internal Rotation 4+ Good+ PT-OP-Q Treatments Start: 08/02/21 17:07 Freq: Status: Active Protocol: Document 11/14/21 12:00 DCW (Rec: 11/14/21 12:43 [facility] [id number]) Cardio Equipment Upper Body Ergometer (UBE) Duration (Minutes) 5 RPM 60 Seat Position 12 Height 3 Other fwd, bkwd 30s each Therapeutic Exercises Supine Exercises PROM Supine Exercise Name flexion, abduction Equipment Used PVC Standing Exercises FF, ABD Side bilateral Resistance #2 Equipment Used Used mirror for form Reps/Minutes x10 FF, ABD AAROM Side bilateral Resistance AAROM Equipment Used PVC Manual Therapy Treatment Soft Tissue Mobilization 2 Body Location L Rhomboids Mobilization Type Sustained Pressure,Trigger Point Release Intensity/Depth Moderate 1 Body Location L Upper Trap Mobilization Type Sustained Pressure,Trigger Point Release Intensity/Depth Moderate Joint Mobilizations 2 Joint Scapulothoracic Direction Lateral Grade III Body Position Supine 1 Joint L GH Direction Inferior Grade III Body Position Supine PT-OP-T Assessment and Plan Start: 08/02/21 17:07 Freq: Status: Active Protocol: Document 11/14/21 12:00 DCW (Rec: 11/14/21 12:43 [facility] [id number]) Physical Therapy Assessment Impairments Impairments Functional Activities, Functional Mobility,Pain,ROM, Soft Tissue Mobility,Strength, Tone Goals Three Impairment L shoulder abduction limited to 82? Intermediate Goal (LTG) Pt to increase left shoulder abduction to >135? in order to make it easier for her to put dishes away in her kitchen cabinets LTG Duration 11/21/21 - improving Two Impairment Pt has difficulty hooking her bra due to left shoulder pain Intermediate Goal (LTG) Pt to report ability to don/ doff her bra with no increased shoulder pain to show improved ADL participation 10/19/21: still unable to fasten bra behind back and don jacket. LTG Duration 11/21/21 - no change One Impairment Pt does not have an appropriate home exercise program Short Term Goal (STG) Pt to be independent and compliant with an appropriate HEP STG Duration Met Assessment Summary Assessment Plan to use upcoming appointments to create a more streamlined HEP for pt to perform during her upcoming three-month long vacation. PT overall doing well, though still has restrictions with end-range mobility due to pain. Physical Therapy Plan Frequency and Duration Frequency of Treatment 2x/Week Duration of Treatment Two months Plan of Care Start Date 09/21/21 Plan of Care End Date 11/21/21 Therapeutic Interventions Therapeutic Interventions Home Exercise Program,Joint Mobilizations,Manual Therapy, Neuromuscular Re-education, Patient/Caregiver Education, Self-Care/Home Management,Soft Tissue Mobilization,Taping, Therapeutic Activities, Therapeutic Exercises Modalities Cold Pack/Ice Massage,Electric Stimulation,Hot Packs, Ultrasound Next Visit Focus/Plan Next Note Type Treatment Note Next Visit Plan Recheck use of foam roller with AROM and HEP review. Amber FF, ABD, ER L shld. POC: Shoulder strengthening, P /AROM, STM
--- NOTE | 2021-11-18 12:01 | PT.OTN ---
Current Diagnoses Other specific arthropathies, not elsewhere classified, left shoulder (11/18/21) Pain in left shoulder (11/18/21) Stiffness of left shoulder, not elsewhere classified (11/18/21) Weakness (11/18/21) Physical Therapy Treatment Note PT-OP-A Visit Information Start: 08/02/21 17:07 Freq: Status: Active Protocol: Document 11/18/21 11:20 DCW (Rec: 11/18/21 12:01 DCW [id number]) Out-Patient Physical Therapy Visit Information Visit Information Visit Type Treatment Note Visit Start Time 11:20 Visit Stop Time 12:00 Total Visit Minutes 40 Visit Number 14 Number of SUPERVISOR KNITTING Visits 0 Evaluation Information Evaluation Date 08/02/21 PT-OP-B Current Condition Start: 08/02/21 17:07 Freq: Status: Active Protocol: Document 08/02/21 16:00 DCW (Rec: 08/02/21 17:34 DCW [id number]) Current Condition History of Current Condition Onset Date 1-2 month history Current Complaints Left shoulder pain and stiffness History of Current Condition Pt is a 71 year old female presenting with a 1-2 month history of left shoulder pain with insidious onset. Pt believes she may have overused it gardening, but is unsure. Feels she has been losing ROM, and notes it is painful when she reachs back to hook her bra, when she reaches out to the side, or when she reaches overhead to get into cabinets. Notes her pain is 4-6/10 with movement, but reports no pain at rest. Pt was previously treated at this clinic 4-5 years ago for her right shoulder, and recovered very well, so she wanted to come in to get her left shoulder treated before it got too bad . Admits she is not really kept from doing anything, but she is planning a 3 month vacation in [place] in the fall , and wants to make sure her shoulder is not still bothering her. PT-OP-C Subjective Start: 08/02/21 17:07 Freq: Status: Active Protocol: Document 11/18/21 11:20 DCW (Rec: 11/18/21 12:01 DCW [id number]) OP-PT Subjective Patient Comments Patient Comments It's just chaos at my house today, so I'm actually coming in here for a break. PT-OP-E Functional Tests Start: 08/02/21 17:34 Freq: Status: Active Protocol: Document 09/21/21 16:00 DCW (Rec: 09/21/21 16:14 DCW [id number]) Functional Tests Apley's Scratch Test Action 1- Left Posterior opposite shoulder Action 1- Right Posterior opposite shoulder Action 2- Left T2 Action 2- Right T5 Action 3- Left T8 Action 3- Right T5 PT-OP-F Manual Assessment Start: 08/02/21 17:07 Freq: Status: Active Protocol: Document 09/21/21 16:00 DCW (Rec: 09/21/21 16:14 DCW [id number]) Manual Assessments Soft Tissue Assessment Soft Tissue Mobility Assessment Mild-Moderate tone with tenderness to palpation 2/4: Pain with wincing along left upper trap, parascapulars, subscap, infraspinatus. Joint Mobility Assessment Joint Mobility Assessment Mild-moderate limitation with left scapulothoracic rhythm, tightness around scapula limiting full shoulder abduction PT-OP-K Range of Motion Start: 08/02/21 17:07 Freq: Status: Active Protocol: Document 10/19/21 08:17 SP (Rec: 10/19/21 09:03 SP [id number]) Shoulder Goniometric Range of Motion Shoulder Left Active Shoulder ROM WFL No Testing Position Sitting Flexion 131 Abduction 113 External Rotation at 0 degrees Abduction 41 Internal Rotation Behind Back (text) T12 Comments -gained 11deg deg FF -gained 11 deg ABD -gained 7 deg ER -gained 1 more vertebral sigment to T12, still lacking from T8 at eval. AROM standing: FF 152 ABD 104 ER 38 AROM standing: FF 152> 131 -decrease 19 deg ABD 104>120 deg ER 38> 51 deg PT-OP-L Special Tests Start: 08/02/21 17:07 Freq: Status: Active Protocol: Document 09/21/21 16:00 DCW (Rec: 09/21/21 16:14 DCW [id number]) Special Tests Shoulder Special Tests Yergason's Biceps Test Results Negative Speed's Biceps Test Results Negative Lift-Off Rotator Cuff Test Results Able to lift L off, but discomfort Dunlap Maxim Impingement Test Results Negative Grind Labrum Test Results Negative Empty Can Test Results Positive Left Drop Arm Rotator Cuff Test Results Negative Biceps Load II Test Test Results Negative Belly Press Test Results Negative Apprehension Test Test Results Positive Left PT-OP-M Strength Start: 08/02/21 17:07 Freq: Status: Active Protocol: Document 09/21/21 16:00 DCW (Rec: 09/21/21 16:14 DCW [id number]) Shoulder Strength Shoulder Manual Muscle Testing Right Flexion 4+ Good+ Abduction (C5) 4+ Good+ External Rotation 4+ Good+ Internal Rotation 4+ Good+ Left Flexion 4 Good Abduction (C5) 3- Fair- External Rotation 4+ Good+ Internal Rotation 4+ Good+ PT-OP-Q Treatments Start: 08/02/21 17:07 Freq: Status: Active Protocol: Document 11/18/21 11:20 DCW (Rec: 11/18/21 12:01 DCW [id number]) Cardio Equipment Upper Body Ergometer (UBE) Duration (Minutes) 5 RPM 60 Seat Position 12 Height 3 Other fwd, bkwd 30s each Therapeutic Exercises Supine Exercises PROM Supine Exercise Name flexion, abduction, ER Equipment Used PVC Sitting Exercises 1 Sitting Exercise Name Shoulder Retraction Standing Exercises 5 Standing Exercise Name Wand shoulder extension/IR Side bilateral Equipment Used PVC 4 Standing Exercise Name IR/ER Side left Resistance Lv 3 3 Standing Exercise Name Shoulder Flexion/Abduction Side bilateral Resistance Lv 3 2 Standing Exercise Name Rows Side bilateral Resistance Lv 3 Manual Therapy Treatment Soft Tissue Mobilization 2 Body Location L Rhomboids Mobilization Type Sustained Pressure,Trigger Point Release Intensity/Depth Moderate 1 Body Location L Upper Trap Mobilization Type Sustained Pressure,Trigger Point Release Intensity/Depth Moderate Joint Mobilizations 2 Joint Scapulothoracic Direction Lateral Grade III Body Position Supine 1 Joint L GH Direction Inferior Grade III Body Position Supine PT-OP-T Assessment and Plan Start: 08/02/21 17:07 Freq: Status: Active Protocol: Document 11/18/21 11:20 DCW (Rec: 11/18/21 12:01 DCW [id number]) Physical Therapy Assessment Impairments Impairments Functional Activities, Functional Mobility,Pain,ROM, Soft Tissue Mobility,Strength, Tone Goals Three Impairment L shoulder abduction limited to 82? Leasing Consultant Goal (LTG) Pt to increase left shoulder abduction to >135? in order to make it easier for her to put dishes away in her kitchen cabinets LTG Duration 11/21/21 - improving Two Impairment Pt has difficulty hooking her bra due to left shoulder pain Leasing Consultant Goal (LTG) Pt to report ability to don/ doff her bra with no increased shoulder pain to show improved ADL participation 10/19/21: still unable to fasten bra behind back and don jacket. LTG Duration 11/21/21 - no change One Impairment Pt does not have an appropriate home exercise program Short Term Goal (STG) Pt to be independent and compliant with an appropriate HEP STG Duration Met Assessment Summary Assessment Spent most of today reviewing an appropriate HEP for her to perform [place] [facility] [place] Pt tolerated well. Prog note/New POC required next visit. Physical Therapy Plan Frequency and Duration Frequency of Treatment 2x/Week Duration of Treatment Two months Plan of Care Start Date 09/21/21 Plan of Care End Date 11/21/21 Therapeutic Interventions Therapeutic Interventions Home Exercise Program,Joint Mobilizations,Manual Therapy, Neuromuscular Re-education, Patient/Caregiver Education, Self-Care/Home Management,Soft Tissue Mobilization,Taping, Therapeutic Activities, Therapeutic Exercises Modalities Cold Pack/Ice Massage,Electric Stimulation,Hot Packs, Ultrasound Next Visit Focus/Plan Next Note Type Progress Note Next Visit Plan Review HEP, Continue strengthening
--- NOTE | 2021-11-21 10:35 | PT.OPPN ---
Current Diagnoses Other specific arthropathies, not elsewhere classified, left shoulder (11/21/21) Pain in left shoulder (11/21/21) Stiffness of left shoulder, not elsewhere classified (11/21/21) Weakness (11/21/21) Physical Therapy Progress Note PT-OP-A Visit Information Start: 08/02/21 17:07 Freq: Status: Active Protocol: Document 11/21/21 09:45 DCW (Rec: 11/21/21 10:33 DCW [id number]) Out-Patient Physical Therapy Visit Information Visit Information Visit Type Progress Note Visit Start Time 09:45 Visit Stop Time 10:30 Total Visit Minutes 45 Visit Number 15 Number of BAFFLE MOUNTER Visits 0 Evaluation Information Evaluation Date 08/02/21 PT-OP-B Current Condition Start: 08/02/21 17:07 Freq: Status: Active Protocol: Document 08/02/21 16:00 DCW (Rec: 08/02/21 17:34 DCW [id number]) Current Condition History of Current Condition Onset Date 1-2 month history Current Complaints Left shoulder pain and stiffness History of Current Condition Pt is a 71 year old female presenting with a 1-2 month history of left shoulder pain with insidious onset. Pt believes she may have overused it gardening, but is unsure. Feels she has been losing ROM, and notes it is painful when she reachs back to hook her bra, when she reaches out to the side, or when she reaches overhead to get into cabinets. Notes her pain is 4-6/10 with movement, but reports no pain at rest. Pt was previously treated at this clinic 4-5 years ago for her right shoulder, and recovered very well, so she wanted to come in to get her left shoulder treated before it got too bad . Admits she is not really kept from doing anything, but she is planning a 3 month vacation in [place] in the fall , and wants to make sure her shoulder is not still bothering her. PT-OP-C Subjective Start: 08/02/21 17:07 Freq: Status: Active Protocol: Document 11/21/21 09:45 DCW (Rec: 11/21/21 10:33 DCW [id number]) OP-PT Subjective Patient Comments Patient Comments It's feeling a little stiff this morning. PT-OP-E Functional Tests Start: 08/02/21 17:34 Freq: Status: Active Protocol: Document 11/21/21 09:45 DCW (Rec: 11/21/21 10:24 [facility] [id number]) Functional Tests Apley's Scratch Test Action 1: The subject is instructed to touch the opposite shoulder with his/her hand. This motion checks Glenohumeral adduction, internal rotation , horizontal adduction and scapular protraction Action 2: The subject is instructed to place his/her arm overhead and reach behind the neck to touch his/her upper back. This motion checks Glenohumeral abduction, external rotation and scapular upward rotation and elevation. Action 3: The subject puts his/her hand on the lower back and reaches upward as far as possible. This motion checks glenohumeral adduction, internal rotation and scapular retraction with downward rotation Action 1- Left Posterior opposite shoulder Action 1- Right Posterior opposite shoulder Action 2- Left T1 Action 2- Right T5 Action 3- Left T12 Action 3- Right T5 PT-OP-F Manual Assessment Start: 08/02/21 17:07 Freq: Status: Active Protocol: Document 11/21/21 09:45 DCW (Rec: 11/21/21 10:24 [facility] [id number]) Manual Assessments Soft Tissue Assessment Soft Tissue Mobility Assessment Moderate tone with tenderness to palpation 2/4: Pain with wincing along left upper trap, parascapulars, subscap, infraspinatus. Joint Mobility Assessment Joint Mobility Assessment Moderate limitation with left scapulothoracic rhythm, tightness around scapula limiting full shoulder abduction PT-OP-K Range of Motion Start: 08/02/21 17:07 Freq: Status: Active Protocol: Document 11/21/21 09:45 DCW (Rec: 11/21/21 10:24 [facility] [id number]) Shoulder Goniometric Range of Motion Shoulder Measured in Degrees Left Passive Shoulder ROM WFL No Testing Position Supine Flexion 142 Abduction 180 External Rotation at 0 degrees Abduction 51 Left Active Shoulder ROM WFL No Testing Position Sitting Flexion 135 Abduction 128 External Rotation at 0 degrees Abduction 43 Internal Rotation Behind Back (text) T12 PT-OP-L Special Tests Start: 08/02/21 17:07 Freq: Status: Active Protocol: Document 11/21/21 09:45 DCW (Rec: 11/21/21 10:24 [facility] [id number]) Special Tests Shoulder Special Tests Yergason's Biceps Test Results Negative Speed's Biceps Test Results Negative Lift-Off Rotator Cuff Test Results Tight Dunlap Maxim Impingement Test Results Negative Grind Labrum Test Results Negative Empty Can Test Results Negative Drop Arm Rotator Cuff Test Results Negative Biceps Load II Test Test Results Negative Belly Press Test Results Negative Apprehension Test Test Results Positive Left PT-OP-M Strength Start: 08/02/21 17:07 Freq: Status: Active Protocol: Document 09/21/21 16:00 DCW (Rec: 09/21/21 16:14 [facility] [id number]) Shoulder Strength Shoulder Manual Muscle Testing Right Flexion 4+ Good+ Abduction (C5) 4+ Good+ External Rotation 4+ Good+ Internal Rotation 4+ Good+ Left Flexion 4 Good Abduction (C5) 3- Fair- External Rotation 4+ Good+ Internal Rotation 4+ Good+ PT-OP-T Assessment and Plan Start: 08/02/21 17:07 Freq: Status: Active Protocol: Document 11/21/21 09:45 DCW (Rec: 11/21/21 10:33 [facility] [id number]) Physical Therapy Assessment Impairments Impairments Functional Activities, Functional Mobility,Pain,ROM, Soft Tissue Mobility,Strength, Tone Goals Three Impairment L shoulder abduction limited to 82? Shelter Goal (LTG) Pt to increase left shoulder abduction to >135? in order to make it easier for her to put dishes away in her kitchen cabinets LTG Duration 11/23/21 - improving Two Impairment Pt has difficulty hooking her bra due to left shoulder pain International Marketing Specialist Goal (LTG) Pt to report ability to don/ doff her bra with no increased shoulder pain to show improved ADL participation 10/19/21: still unable to fasten bra behind back and don jacket. LTG Duration 11/23/21 - no change One Impairment Pt does not have an appropriate home exercise program Short Term Goal (STG) Pt to be independent and compliant with an appropriate HEP STG Duration Met Assessment Summary Assessment Pt making slow but significant progress with shoulder mobility, was more stiff today , although responded well to stretching. Pt reminded of importance of constant movement and stretching of affected shoulder. Largely spent today with stretching/ manual treatment focusing on decreasing stiffness. Pt will be leaving next week for a three month vacation. Physical Therapy Plan Frequency and Duration Frequency of Treatment 2x/Week Duration of Treatment One week Plan of Care Start Date 11/21/21 Plan of Care End Date 11/28/21 Therapeutic Interventions Therapeutic Interventions Home Exercise Program,Joint Mobilizations,Manual Therapy, Neuromuscular Re-education, Patient/Caregiver Education, Self-Care/Home Management,Soft Tissue Mobilization,Taping, Therapeutic Activities, Therapeutic Exercises Modalities Cold Pack/Ice Massage,Electric Stimulation,Hot Packs, Ultrasound Next Visit Focus/Plan Next Note Type Discharge Summary
--- NOTE | 2021-11-21 10:35 | PT.OPPOC ---
Physical, Occupational & Speech Therapy At [facility] Current Diagnoses Other specific arthropathies, not elsewhere classified, left shoulder (11/21/21) Pain in left shoulder (11/21/21) Stiffness of left shoulder, not elsewhere classified (11/21/21) Weakness (11/21/21) Visit Care Team Role Provider Type Trupti Hdz PA-C Attending Provider Non-Staff Family Provider Primary Care Provider Referring Provider Specialty: Internal Medicine Address: [address] [place] [address], [facility] Email: [email or web address] Plan Of Care PT-OP-T Assessment and Plan Start: 08/02/21 17:07 Freq: Status: Active Protocol: Document 11/21/21 09:45 DCW (Rec: 11/21/21 10:33 DCW [id number]) Physical Therapy Assessment Impairments Impairments Functional Activities, Functional Mobility,Pain,ROM, Soft Tissue Mobility,Strength, Tone Goals Three Impairment L shoulder abduction limited to 82? Residential Goal (LTG) Pt to increase left shoulder abduction to >135? in order to make it easier for her to put dishes away in her kitchen cabinets LTG Duration 11/23/21 - improving Two Impairment Pt has difficulty hooking her bra due to left shoulder pain Gaming Cage Worker Goal (LTG) Pt to report ability to don/ doff her bra with no increased shoulder pain to show improved ADL participation 10/19/21: still unable to fasten bra behind back and don jacket. LTG Duration 11/23/21 - no change One Impairment Pt does not have an appropriate home exercise program Short Term Goal (STG) Pt to be independent and compliant with an appropriate HEP STG Duration Met Assessment Summary Assessment Pt making slow but significant progress with shoulder mobility, was more stiff today , although responded well to stretching. Pt reminded of importance of constant movement and stretching of affected shoulder. Largely spent today with stretching/ manual treatment focusing on decreasing stiffness. Pt will be leaving next week for a three month vacation. Physical Therapy Plan Frequency and Duration Frequency of Treatment 2x/Week Duration of Treatment One week Plan of Care Start Date 11/21/21 Plan of Care End Date 11/28/21 Therapeutic Interventions Therapeutic Interventions Home Exercise Program,Joint Mobilizations,Manual Therapy, Neuromuscular Re-education, Patient/Caregiver Education, Self-Care/Home Management,Soft Tissue Mobilization,Taping, Therapeutic Activities, Therapeutic Exercises Modalities Cold Pack/Ice Massage,Electric Stimulation,Hot Packs, Ultrasound Next Visit Focus/Plan Next Note Type Discharge Summary Plan of Care Dates Plan of Care Start Date 11/21/21 Plan of Care End Date 11/28/21 Electronically Signed by: Beto Conroy, PT 11/21/21 1296 If you are in agreement with this Plan of Care, please return a signed and dated copy. I have reviewed this Plan of Care and certify that the skilled therapy services above are required to meet the patient?s needs. Physician Signature Date Printed Name and Credentials Clinical Instructor Signature Printed Name and Credentials
--- NOTE | 2021-11-23 10:28 | PT.OTN ---
Current Diagnoses Other specific arthropathies, not elsewhere classified, left shoulder (11/23/21) Pain in left shoulder (11/23/21) Stiffness of left shoulder, not elsewhere classified (11/23/21) Weakness (11/23/21) Physical Therapy Treatment Note PT-OP-A Visit Information Start: 08/02/21 17:07 Freq: Status: Active Protocol: Document 11/23/21 09:47 DCW (Rec: 11/23/21 10:28 DCW [id number]) Out-Patient Physical Therapy Visit Information Visit Information Visit Type Discharge Summary Visit Start Time 09:47 Visit Stop Time 10:30 Total Visit Minutes 43 Visit Number 16 Number of DIRECTOR TRANSPORTATION Visits 0 Evaluation Information Evaluation Date 08/02/21 PT-OP-B Current Condition Start: 08/02/21 17:07 Freq: Status: Active Protocol: Document 08/02/21 16:00 DCW (Rec: 08/02/21 17:34 DCW [id number]) Current Condition History of Current Condition Onset Date 1-2 month history Current Complaints Left shoulder pain and stiffness History of Current Condition Pt is a 71 year old female presenting with a 1-2 month history of left shoulder pain with insidious onset. Pt believes she may have overused it gardening, but is unsure. Feels she has been losing ROM, and notes it is painful when she reachs back to hook her bra, when she reaches out to the side, or when she reaches overhead to get into cabinets. Notes her pain is 4-6/10 with movement, but reports no pain at rest. Pt was previously treated at this clinic 4-5 years ago for her right shoulder, and recovered very well, so she wanted to come in to get her left shoulder treated before it got too bad . Admits she is not really kept from doing anything, but she is planning a 3 month vacation in [place] in the fall , and wants to make sure her shoulder is not still bothering her. PT-OP-C Subjective Start: 08/02/21 17:07 Freq: Status: Active Protocol: Document 11/23/21 09:47 DCW (Rec: 11/23/21 10:28 DCW [id number]) OP-PT Subjective Patient Comments Patient Comments I got about 24 hours of relief after our last session together. PT-OP-E Functional Tests Start: 08/02/21 17:34 Freq: Status: Active Protocol: Document 11/21/21 09:45 DCW (Rec: 11/21/21 10:24 DCW [id number]) Functional Tests Apley's Scratch Test Action 1- Left Posterior opposite shoulder Action 1- Right Posterior opposite shoulder Action 2- Left T1 Action 2- Right T5 Action 3- Left T12 Action 3- Right T5 PT-OP-F Manual Assessment Start: 08/02/21 17:07 Freq: Status: Active Protocol: Document 11/21/21 09:45 DCW (Rec: 11/21/21 10:24 DCW [id number]) Manual Assessments Soft Tissue Assessment Soft Tissue Mobility Assessment Moderate tone with tenderness to palpation 2/4: Pain with wincing along left upper trap, parascapulars, subscap, infraspinatus. Joint Mobility Assessment Joint Mobility Assessment Moderate limitation with left scapulothoracic rhythm, tightness around scapula limiting full shoulder abduction PT-OP-K Range of Motion Start: 08/02/21 17:07 Freq: Status: Active Protocol: Document 11/21/21 09:45 DCW (Rec: 11/21/21 10:24 DCW [id number]) Shoulder Goniometric Range of Motion Shoulder Left Passive Shoulder ROM WFL No Testing Position Supine Flexion 142 Abduction 180 External Rotation at 0 degrees Abduction 51 Left Active Shoulder ROM WFL No Testing Position Sitting Flexion 135 Abduction 128 External Rotation at 0 degrees Abduction 43 Internal Rotation Behind Back (text) T12 PT-OP-L Special Tests Start: 08/02/21 17:07 Freq: Status: Active Protocol: Document 11/21/21 09:45 DCW (Rec: 11/21/21 10:24 DCW [id number]) Special Tests Shoulder Special Tests Yergason's Biceps Test Results Negative Speed's Biceps Test Results Negative Lift-Off Rotator Cuff Test Results Tight Dunlap Maxim Impingement Test Results Negative Grind Labrum Test Results Negative Empty Can Test Results Negative Drop Arm Rotator Cuff Test Results Negative Biceps Load II Test Test Results Negative Belly Press Test Results Negative Apprehension Test Test Results Positive Left PT-OP-M Strength Start: 08/02/21 17:07 Freq: Status: Active Protocol: Document 09/21/21 16:00 DCW (Rec: 09/21/21 16:14 DCW [id number]) Shoulder Strength Shoulder Manual Muscle Testing Right Flexion 4+ Good+ Abduction (C5) 4+ Good+ External Rotation 4+ Good+ Internal Rotation 4+ Good+ Left Flexion 4 Good Abduction (C5) 3- Fair- External Rotation 4+ Good+ Internal Rotation 4+ Good+ PT-OP-Q Treatments Start: 08/02/21 17:07 Freq: Status: Active Protocol: Document 11/23/21 09:47 DC (Rec: 11/23/21 10:28 [facility] [id number]) Cardio Equipment Upper Body Ergometer (UBE) Duration (Minutes) 5 RPM 60 Seat Position 12 Height 3 Therapeutic Exercises Sitting Exercises 1 Sitting Exercise Name PROM [place] Manual Therapy Treatment Soft Tissue Mobilization 2 Body Location L Rhomboids Mobilization Type Sustained Pressure,Trigger Point Release Intensity/Depth Moderate 1 Body Location L Upper Trap Mobilization Type Sustained Pressure,Trigger Point Release Intensity/Depth Moderate Joint Mobilizations 2 Joint Scapulothoracic Direction Lateral Grade III Body Position Supine 1 Joint L GH Direction Inferior Grade III Body Position Supine PT-OP-T Assessment and Plan Start: 08/02/21 17:07 Freq: Status: Active Protocol: Document 11/23/21 09:47 DCW (Rec: 11/23/21 10:28 [facility] [id number]) Physical Therapy Assessment Impairments Impairments Functional Activities, Functional Mobility,Pain,ROM, Soft Tissue Mobility,Strength, Tone Goals Three Impairment L shoulder abduction limited to 82? Lead Systems Developer Goal (LTG) Pt to increase left shoulder abduction to >135? in order to make it easier for her to put dishes away in her kitchen cabinets LTG Duration 11/23/21 - improving Two Impairment Pt has difficulty hooking her bra due to left shoulder pain Custodial Goal (LTG) Pt to report ability to don/ doff her bra with no increased shoulder pain to show improved ADL participation 10/19/21: still unable to fasten bra behind back and don jacket. LTG Duration 11/23/21 - no change One Impairment Pt does not have an appropriate home exercise program Short Term Goal (STG) Pt to be independent and compliant with an appropriate HEP STG Duration Met Progress Towards Goals Progress Towards Goals Progressing Toward Goals Assessment Summary Assessment Pt doing well, would likely benefit from continued therapy , but will be leaving on Sunday for a three month vacation in [place], so pt will be discharged at this time. Pt will require a new referral in order to return to therapy after her vacation if necessary. Physical Therapy Plan Frequency and Duration Frequency of Treatment 2x/Week Duration of Treatment One week Plan of Care Start Date 11/21/21 Plan of Care End Date 11/28/21 Therapeutic Interventions Therapeutic Interventions Home Exercise Program,Joint Mobilizations,Manual Therapy, Neuromuscular Re-education, Patient/Caregiver Education, Self-Care/Home Management,Soft Tissue Mobilization,Taping, Therapeutic Activities, Therapeutic Exercises Modalities Cold Pack/Ice Massage,Electric Stimulation,Hot Packs, Ultrasound Discharge Physical Therapy Discharge Reasons No Longer Attending PT Discharge Comments Leaving country for 3 months Next Visit Focus/Plan Next Note Type Discharge Summary
== END 2021-11-24 14:16 ==
LOC: PHYS 09:45
PROVIDERS: Family Provider Physician Assistant; PCP Physician Assistant; Referring Provider Physician Assistant; Visit Provider Physician Assistant
DX: M12.812 Other specific arthropathies, not elsewhere classified, left shoulder (principal); M25.612 Stiffness of left shoulder, not elsewhere classified; M25.512 Pain in left shoulder; R53.1 Weakness
CPT/HCPCS: 97110; 97140; 97161

== ENCOUNTER → 2022-06-17 09:20 | Outpatient (CLI) | payer MEDICARE, BC, SELFPAY ==
--- NOTE | 2022-06-17 | DI.MG.S_ITS ---
BILATERAL DIGITAL SCREENING MAMMOGRAM 3D/2D WITH CAD: 06/17/2022 CLINICAL: Routine screening. Family history of breast cancer. Comparison is made to exams dated: 05/12/2020 mammogram, 04/11/2019 mammogram, 04/03/2018 mammogram, 03/26/2017 mammogram, and 09/27/2015 mammogram - [facility]. There are scattered areas of fibroglandular density in both breasts (category b / 25%-50% glandular tissue). Current study was also evaluated with a Computer Aided Detection (CAD) system. No significant masses, calcifications, or other findings are seen in either breast. There has been no significant interval change. IMPRESSION: NEGATIVE There is no mammographic evidence of malignancy. A 1 year screening mammogram is recommended. Based on the Tyrer Cuzick model (a risk assessment model) the patient's lifetime risk is 5.1% and her 10 year risk is 4.1%. According to the ACR, ACS, and NCCN guidelines, an annual breast MRI exam along with mammogram is recommended if the patient's lifetime risk is 20% or greater. This exam was interpreted at Station ID: [id number]. NOTE: For mammograms, a report in lay terms will be sent to the patient. Approximately 15% of breast malignancies will not be visualized mammographically. In the management of a palpable breast mass, a negative mammogram must not discourage biopsy of a clinically suspicious lesion. Electronically Signed By: Salazar [email or web address]/[email or web address]:06/19/2022 07:55:10 letter sent: Normal Exam ACR BI-RADS Category 1: Negative [id number]
== END ==
PROVIDERS: PCP Physician Assistant; Referring Provider Physician Assistant; Visit Provider Physician Assistant
DX: Z12.31 Encounter for screening mammogram for malignant neoplasm of breast (principal); Z80.3 Family history of malignant neoplasm of breast
CPT/HCPCS: 77063; 77067

== ENCOUNTER 2022-08-15 06:52 | Day surgery (SDC) | payer MEDICARE, BC, SELFPAY ==
[2022-08-15 07:18] VITALS: BMI 28.6
[2022-08-15 07:27] VITALS: BP 143/81; PULSE 68; RESP 17; TEMP 36.6; O2SAT 97
[2022-08-15] MEDS: LACTATED RINGERS 1,000 ML 42 ML IV (07:31)
--- NOTE | 2022-08-15 08:43 | PM.HP.1 ---
History of Present Illness History of Present Illness Date Patient Seen: 08/15/22 Time Patient Seen: 08:43 Chief complaint: Screening Colonoscopy Narrative: 72-year-old woman here for screening colonoscopy. Prior colonoscopy 10 years ago normal. No family or personal history of intestinal malignancy. No abdominal concerns including blood per rectum unintentional weight loss nausea vomiting pain. PFSH Social History household members: spouse Smoking Status: Never smoker alcohol intake: current Meds Home Medications and Allergies Home Medications Medication Instructions Recorded Confirmed Type LEVOTHYROXINE SODIUM 100 mcg PO QDAY ##0 09/07/12 08/15/22 History acetaminophen 500 mg tablet 1,000 mg PO Q6H PRN Pain (Scale 08/15/22 08/15/22 History Score 1-3) cholecalciferol (vitamin D3) 125 125 mcg PO DAILY 08/15/22 08/15/22 History mcg (5,000 unit) tablet (Vitamin D3) esomeprazole magnesium 20 mg 20 mg PO DAILY 08/15/22 08/15/22 History capsule,delayed release ibuprofen 200 mg tablet 400 mg PO Q6H PRN Pain (Scale 08/15/22 08/15/22 History Score 1-3) Allergies Allergy/AdvReac Type Severity Reaction Status Date / Time pollen extracts Allergy Congested Verified 08/15/22 07:08 Exam Vital Signs (past 8 hours): - 08/15/22 07:27 Temperature 97.9 F Pulse Rate 68 Respiratory Rate 17 Blood Pressure 143/81 H Pulse Oximetry 97 Oxygen Delivery Method Room Air Oxygen Delivery Method Room Air Narrative Exam Narrative: General adult woman alert oriented no acute distress Assessment & Plan Assessment & Plan narrative: The patient requires colorectal screening and colonoscopy is recommended. Technical details were discussed. Risks, benefits, alternatives explained. Risks including but not limited to myocardial infarction, aspiration, bleeding, pain, missed lesion, incomplete examination, need for further radiographic studies, colonic perforation, and need for major abdominal surgery were discussed. All questions were answered to their satisfaction, and they are in agreement with this plan.
--- NOTE | 2022-08-15 08:47 | PM.OP.COLON ---
Operative Date/Time/Diagnoses Date of procedure: 08/15/22 Time of procedure: 08:47 Pre-op diagnosis: colorectal screening Post-op diagnosis: same Procedure & Clinicians Study performed: colonoscopy Same procedure as scheduled: Yes Indications: colorectal screening Surgeon: Mikhail Carreon Procedure Notes Procedure in detail: The history and physical was performed/updated and the patient is ASA class is 2. The procedure was discussed in detail with the patient. Potential risks complications including infection, bleeding, missed diagnosis, perforation, need for surgery, and were explained. Their questions were answered and informed consent was obtained. Patient was brought to the procedure room and placed standard monitoring equipment. The patient's vital signs were monitored continuously throughout the entire procedure. Prior to starting time-out was performed. The patient was placed in the left lateral recumbent position. Procedural sedation was administered by anesthesia. Examination began with a thorough inspection of the perianal area there was no evidence of fissures, fistulae, external hemorrhoids or cutaneous malignancy. The colonoscopy scope was then placed into the anal canal and was advanced to the cecum, which was identified by the ileocecal valve, the appendiceal orifice and the confluence of the taenia. The scope was then slowly withdrawn examining colon thoroughly in all directions, irrigating it of any residual stool. No masses polyps or inflammation were identified. There was mild diverticular disease within the sigmoid colon. Grade 2 internal hemorrhoids on retroflexion within the rectum The patient tolerated the procedure well. They will be discharged once criteria are met. The prep was of good/excellent quality. The withdrawl time was 6 minutes. Post-procedure Recommendations: High fiber diet Plan for aftercare: No further colonoscopy is recommended Disposition: same day surgery
[2022-08-15 09:13] VITALS: BP 113/64; PULSE 63; RESP 12; TEMP 36.7; O2SAT 95
[2022-08-15 09:20] VITALS: BP 126/64; PULSE 55; RESP 16; O2SAT 97
[2022-08-15 09:23] VITALS: BP 161/79; PULSE 62; RESP 16; O2SAT 96
== END 2022-08-15 09:38 | disposition home or self-care (01) ==
PROVIDERS: Family Provider Physician Assistant; PCP Physician Assistant; Referring Provider Surgery; Visit Provider Surgery
PROC: 0DJD8ZZ Inspection of Lower Intestinal Tract, Via Natural or Artificial Opening Endoscopic (ICD-10-PCS; CPT 45378; principal; 2022-08-15 07:45)
DX: Z12.11 Encounter for screening for malignant neoplasm of colon (principal); K64.1 Second degree hemorrhoids; K57.30 Diverticulosis of large intestine without perforation or abscess without bleeding
CPT/HCPCS: G0121; J2704

== ENCOUNTER 2022-08-30 14:00 | Outpatient (RCR) | payer MEDICARE, BC, SELFPAY ==
--- NOTE | 2022-07-04 15:15 | PT.OPPOC ---
Physical, Occupational & Speech Therapy At [facility] Current Diagnoses Stiffness of left ankle, not elsewhere classified (07/04/22) Muscle spasm of calf (07/04/22) Achilles tendinitis, left leg (07/04/22) Other abnormalities of gait and mobility (07/04/22) Visit Care Team Role Provider Type Trish Medrano PA-C Family Provider Advanced Senior Telecommunications Specialist Primary Care Provider Specialty: Medical Address: [address] [place] [address], [id number] Email: Hakeem Williamson MD Attending Provider Physician Referring Provider Specialty: Internal Medicine Address: [address] [place] [address] [id number], [place], [id number] Email: Plan Of Care PT-OP-T Assessment and Plan Start: 07/04/22 17:35 Freq: Status: Active Protocol: Document 07/04/22 14:30 DCW (Rec: 07/05/22 09:44 DCW [id number]) Physical Therapy Assessment Rehab Potential Rehabilitation Potential Good Evaluation Complexity Number of Personal Factors/Comorbidities 1-2 Number of Body Systems Impaired 1-2 Clinical Presentation at Evaluation Stable Impairments Impairments Activity Tolerance,Functional Activities,Functional Mobility ,Gait,Pain,Soft Tissue Mobility,Strength,Tone Goals Two Impairment Pt begins to limp after ambulating 7,000 steps in a day Mcfp Goal (LTG) Pt to improve gait pattern to a proper push-off and toe lift by increasing L ankle strength and report ability to ambulate to her goal of 10, 000 steps without increased heel pain or antalgic gait. One Impairment Pt does not have an appropriate home exercise program Short Term Goal (STG) Pt to be independent and compliant with an appropriate HEP STG Duration 08/04/22 Assessment Summary Assessment Pt presents with signs and symptoms consistent with referring diagnosis of Achilles tendonitis, likely due to gait changes following a bad fall down 11 steps causing injury to her leg. Pt has point-specific pain at Achilles insertion, as well as increased tone and tenderness throughout soleus, lateral worse than medial. Pt additionally exhibits slightly dysfunctional gait pattern, mainly limited push-off on left foot. Pt should benefit from ankle strengthening and joint mobilization, STM, and gait training. Pt is ~7 months into her injury, and is already showing improvement, but is still limited by pain with most activities, and admits her gait degenerates as she approaches 7,000 steps each day on her pedometer. Physical Therapy Plan Frequency and Duration Frequency of Treatment additional 4-5 visit Plan of Care Start Date 07/04/22 Plan of Care End Date 09/18/22 Therapeutic Interventions Therapeutic Interventions Balance Training,Home Exercise Program,Joint Mobilizations, Manual Therapy,Patient/ Caregiver Education,Self-Care/ Home Management,Soft Tissue Mobilization,Therapeutic Activities,Therapeutic Exercises Next Visit Focus/Plan Next Note Type Treatment Note Next Visit Plan Ankle strengthening, STM, gait training Plan of Care Dates Plan of Care Start Date 07/04/22 Plan of Care End Date 09/18/22 Electronically Signed by: Beto Conroy, PT 07/05/22 0945 If you are in agreement with this Plan of Care, please return a signed and dated copy. I have reviewed this Plan of Care and certify that the skilled therapy services above are required to meet the patient?s needs. Physician Signature Date Printed Name and Credentials Clinical Instructor Signature Printed Name and Credentials
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
== END 2022-09-01 10:09 | disposition home or self-care (01) ==
LOC: PHYS 14:00
PROVIDERS: Absent Provider Internal Medicine; Family Provider Physician Assistant; PCP Physician Assistant; Referring Provider Internal Medicine; Visit Provider Internal Medicine
DX: M76.62 Achilles tendinitis, left leg (principal); M62.831 Muscle spasm of calf; M25.672 Stiffness of left ankle, not elsewhere classified; R26.89 Other abnormalities of gait and mobility
CPT/HCPCS: 97110; 97112; 97140; 97161

== ENCOUNTER → 2023-02-19 14:32 | Outpatient (CLI) | payer MEDICARE, BC, SELFPAY ==
[2023-02-21 15:37] LABS: Candida species Negative (Negative); Gardnerella vaginalis Negative (Negative); Trichomoas vaginalis Negative (Negative)
== END ==
PROVIDERS: Family Provider Physician Assistant; PCP Physician Assistant; Visit Provider Obstetrics & Gynecology
DX: N89.8 Other specified noninflammatory disorders of vagina (principal)
CPT/HCPCS: 87480; 87510; 87660

== ENCOUNTER → 2023-06-20 15:06 | Outpatient (CLI) | payer MEDICARE, BC, SELFPAY ==
--- NOTE | 2023-06-20 15:08 | DI.MG.S_ITS ---
BILATERAL DIGITAL SCREENING MAMMOGRAM 3D/2D WITH CAD: 06/20/2023 CLINICAL: Routine screening. Family history of breast cancer. Comparison is made to exams dated: 06/17/2022 mammogram, 05/12/2020 mammogram, 04/11/2019 mammogram, 04/03/2018 mammogram, and 03/26/2017 mammogram - [facility]. There are scattered areas of fibroglandular density in both breasts (category b / 25%-50% glandular tissue). Current study was also evaluated with a Computer Aided Detection (CAD) system. No significant masses, calcifications, or other findings are seen in either breast. There has been no significant interval change. IMPRESSION: NEGATIVE There is no mammographic evidence of malignancy. A 1 year screening mammogram is recommended. Based on the Tyrer Cuzick model (a risk assessment model) the patient's lifetime risk is 4.7% and her 10 year risk is 4.3%. According to the ACR, ACS, and NCCN guidelines, an annual breast MRI exam along with mammogram is recommended if the patient's lifetime risk is 20% or greater. This exam was interpreted at Station ID: [id number]. NOTE: For mammograms, a report in lay terms will be sent to the patient. Approximately 15% of breast malignancies will not be visualized mammographically. In the management of a palpable breast mass, a negative mammogram must not discourage biopsy of a clinically suspicious lesion. Electronically Signed By: Anahi Phillip M.D., PH.D eb/chicho:06/21/2023 12:08:38 letter sent: Normal Exam ACR BI-RADS Category 1: Negative [id number]
== END ==
PROVIDERS: Family Provider Physician Assistant; PCP Physician Assistant; Referring Provider Physician Assistant; Visit Provider Physician Assistant
DX: Z12.31 Encounter for screening mammogram for malignant neoplasm of breast (principal); Z80.3 Family history of malignant neoplasm of breast; R92.323 Mammographic fibroglandular density, bilateral breasts
CPT/HCPCS: 77063; 77067

== ENCOUNTER → 2023-09-14 15:14 | Outpatient (CLI) | payer MEDICARE, BC, SELFPAY ==
--- NOTE | 2023-09-14 15:16 | DI.RAD.S_ITS ---
PROCEDURE: XR DEXA AXIAL SKELETON INDICATIONS: Screening osteoporosis COMPARISON: None. FINDINGS: Lumbar Spine: Bone mineral density 0.802 g/cm2, T score -2.2, osteopenia. Left Hip: Bone mineral density 0.733 g/cm2, T score -1.7, osteopenia. Left Femoral Neck: Bone mineral density 0.597 g/cm2, T score -2.3, osteopenia. Right Hip: Bone mineral density 0.739 g/cm2, T score -1.7, osteopenia. Right Femoral Neck: Bone mineral density 0.628 g/cm2, T score -2.0, osteopenia. Fracture Risk Calculation (when applicable): 10-year fracture risk of a major osteoporotic fracture 15 and of a hip fracture 4. (T score greater or equal to -1.0 to: NORMAL) (T score from -1.1 to -2.4: OSTEOPENIA) (T score less than or equal to -2.5: OSTEOPOROSIS) IMPRESSION: Osteopenia. Follow-up guidelines as follows: Osteoporosis: Consider a repeat DEXA and Vertebral Fracture Assessment (VFA) exam in 2 years or sooner if medically necessary, to reassess this patient's status. Osteopenia: Consider a repeat DEXA in 2-3 years to reassess this patient's status, or if there is a new clinical indication. Normal: Consider a repeat DEXA in 5 years or sooner, or if there is a new clinical indication. All treatment decisions require clinical judgment and consideration of individual patient factors, including patient preferences, comorbidities, previous drug use, risk factors not captured in the FRAX model (e.g., frailty, falls, vitamin D deficiency, increased bone turnover, interval significant decline in bone density ) and possible under- or over-estimation of fracture risk by FRAX. In addition, the NOF Guide recommends that FDA-approved medical therapies be considered in postmenopausal women and men age >= 50 years with a: * Hip or vertebral (clinical or morphometric) fracture * T-score of <=-2.5 at the spine or hip * Ten-year fracture probability by FRAX of >= 3% for hip fracture or >=20% for major osteoporotic fracture. People with diagnosed cases of osteoporosis or at high risk for fracture should have regular bone mineral density tests. For patients eligible for Medicare, routine testing is allowed once every 2 years. The testing frequency can be increased to one year for patients who have rapidly progressing disease, those who are receiving or discontinuing medical therapy to restore bone mass, or have additional risk factors. Dictated by: Jeffrey Jacobs M.D. on 09/14/2023 at 16:59 Approved by: Jeffrey Jacobs M.D. on 09/14/2023 at 17:00
== END ==
PROVIDERS: Family Provider Physician Assistant; PCP Physician Assistant; Referring Provider Obstetrics & Gynecology; Visit Provider Obstetrics & Gynecology
DX: Z13.820 Encounter for screening for osteoporosis (principal); M85.89 Other specified disorders of bone density and structure, multiple sites
CPT/HCPCS: 77080

== ENCOUNTER → 2024-06-25 17:24 | Outpatient (CLI) | payer MEDICARE, BC, SELFPAY ==
--- NOTE | 2024-06-25 17:31 | DI.MG.S_ITS ---
MM screening mammo BI: 06/25/2024. BI-RADS: 1 CLINICAL: 74-year old female for bilateral screening mammogram. Tyrer-Cuzick lifetime risk of 4.4%. No personal or first-degree family history of breast cancer. Current reported family history of breast cancer: paternal aunt's daughter and paternal aunt's second daughter. PRIOR EXAMS 06/20/2023, 06/17/2022, 05/12/2020, 04/11/2019, 04/03/2018, 03/26/2017, 09/27/2015, 09/25/2014. MAMMOGRAPHY TECHNIQUE: 2D and 3D (tomosynthesis) digital mammographic views obtained, with additional images as needed for full coverage. Current study was also evaluated with a Computer Aided Detection (CAD) system. DENSITY B. There are scattered areas of fibroglandular density. MAMMOGRAPHY FINDINGS Bilateral: No suspicious mass, asymmetry, microcalcification, or other abnormality seen. IMPRESSION: * No evidence of malignancy. RECOMMENDATIONS Bilateral * Annual screening mammography. OVERALL ASSESSMENT CATEGORY BI-RADS-1: Negative. The [employer] recommends annual screening mammography beginning at age 40 for women with average risk of breast cancer. ELECTRONICALLY SIGNED: Kenzie Monzon M.D. on 06/26/2024 at 08:57:12 AM PT Interpreting Station ID: [id number]
--- NOTE | 2024-06-25 17:32 | DI.RAD.S_ITS ---
PROCEDURE: XR SACRUM COCCYX MIN 2V INDICATIONS: RIGHT SIDED LOW BACK PX TECHNIQUE: 3 views of the sacrum and coccyx acquired. COMPARISON: None. FINDINGS: Bones: No fractures or dislocations. No suspicious bony lesions. Soft tissues: Visualized bowel gas pattern is normal. No suspicious soft tissue densities. IMPRESSION: No evidence of acute osseous abnormality. Dictated by: Angelito Chong M.D. on 06/26/2024 at 19:33 Approved by: Angelito Chong M.D. on 06/26/2024 at 19:34
--- NOTE | 2024-06-25 17:32 | DI.RAD.S_ITS ---
PROCEDURE: XR THORACIC SPINE 2V INDICATIONS: BI THORACIC BACK PAIN TECHNIQUE: 3 views of the thoracic spine were acquired. COMPARISON: None. FINDINGS: Bones: No fractures or dislocations. Mild S-shaped scoliosis and exaggeration of thoracic kyphosis with multilevel disc height loss and anterior osteophytosis. No suspicious bony lesions. 12 pairs of ribs are noted, and appear intact where visualized. Soft tissues: No paravertebral stripe thickening. IMPRESSION: Mild multilevel degenerative change of the thoracic spine without evidence of acute osseous abnormality. Dictated by: Angelito Chong M.D. on 06/26/2024 at 19:32 Approved by: Angelito Chong M.D. on 06/26/2024 at 19:32
--- NOTE | 2024-06-25 17:32 | DI.RAD.S_ITS ---
PROCEDURE: XR LUMBAR SPINE 2-3V INDICATIONS: RIGHT SIDED LOW BACK PX TECHNIQUE: 3 views of the lumbar spine were acquired. COMPARISON: [facility], [facility], XR LUMBAR SPINE 2-3V, 03/28/2019, 12:19. FINDINGS: Bones: 5 [id number] vertebrae are present. Grade 1 anterolisthesis of L4 on L5 measures approximately 0.6 cm. There is severe L4-L5 disc height loss with adjacent endplate sclerosis. There is otherwise normal bony alignment. No vertebral body compression fractures. No suspicious bony lesions. Soft tissues: Overlying bowel gas pattern is normal. No suspicious soft tissue calcifications. IMPRESSION: Degenerative change of the lower lumbar spine including grade 1 anterolisthesis of L4 on L5. No evidence of acute osseous abnormality. Dictated by: Angelito Chong M.D. on 06/26/2024 at 19:30 Approved by: Angelito Chong M.D. on 06/26/2024 at 19:31
== END ==
PROVIDERS: Family Provider Physician Assistant; PCP Physician Assistant; Referring Provider Physician Assistant; Visit Provider Physician Assistant
DX: Z12.31 Encounter for screening mammogram for malignant neoplasm of breast (principal); Z80.3 Family history of malignant neoplasm of breast; M54.41 Lumbago with sciatica, right side; M47.814 Spondylosis without myelopathy or radiculopathy, thoracic region; M47.816 Spondylosis without myelopathy or radiculopathy, lumbar region; M43.16 Spondylolisthesis, lumbar region; M54.6 Pain in thoracic spine; G89.29 Other chronic pain
CPT/HCPCS: 72070; 72100; 72220; 77063; 77067